=== PATIENT | female | born 1975 | race Caucasian/White ===

== ENCOUNTER → 2018-07-25 09:38 | Outpatient (CLI) | payer BC, SELFPAY ==
--- NOTE | 2018-07-25 | DI.MG.S_ITS ---
BILATERAL DIGITAL SCREENING MAMMOGRAM 3D/2D WITH CAD: 07/25/2018 CLINICAL: Routine screening. Comparison is made to exams dated: 07/24/2017 mammogram, 07/18/2016 mammogram, and 07/12/2015 mammogram - [facility]. There are scattered fibroglandular elements in both breasts. Current study was also evaluated with a Computer Aided Detection (CAD) system. No significant masses, calcifications, or other findings are seen in either breast. There has been no significant interval change. IMPRESSION: NEGATIVE There is no mammographic evidence of malignancy. A 1 year screening mammogram is recommended. This exam was interpreted at Station ID: [id number]. NOTE: For mammograms, a report in lay terms will be sent to the patient. Approximately 15% of breast malignancies will not be visualized mammographically. In the management of a palpable breast mass, a negative mammogram must not discourage biopsy of a clinically suspicious lesion. Electronically Signed By: Will mansfield/elmer:07/27/2018 18:07:35 letter sent: Normal Exam ACR BI-RADS Category 1: Negative [id number]
== END ==
PROVIDERS: Visit Provider Obstetrics & Gynecology
DX: Z12.31 Encounter for screening mammogram for malignant neoplasm of breast (principal)
CPT/HCPCS: 77063; 77067

== ENCOUNTER 2019-07-07 12:14 | Emergency (ER) | payer BC, SELFPAY ==
[2019-07-07] VITALS (7 sets, daily range): BP systolic 133–171; BP diastolic 75–118; PULSE 84–100; RESP 14–19; TEMP 36.3; O2SAT 99–100; BMI 32.4
--- NOTE | 2019-07-07 12:23 | DI.RAD.S_ITS ---
PROCEDURE: XR CHEST 1V INDICATIONS: chest pain TECHNIQUE: One view of the chest was acquired. COMPARISON: None. FINDINGS: Surgical changes and devices: None. Lungs and pleura: Lungs are clear. No pleural effusions or pneumothorax. Mediastinum: Mediastinal contours appear normal. Heart size is normal. Bones and chest wall: No suspicious bony lesions. Overlying soft tissues appear unremarkable. IMPRESSION: No acute pulmonary process. Dictated by: Mary Arreola M.D. on 07/07/2019 at 11:49 Approved by: Mary Arreola M.D. on 07/07/2019 at 11:51
[2019-07-07 12:50] LABS: Add Manual Diff / Slide Review NO; Basophils Absolute Auto 100 /uL (0-100); Basophils Percent Auto 1.3 % (0-2); Eosinophils Absolute Auto 100 /uL (0-450); Eosinophils Percent Auto 0.8 % (2-4); Hematocrit 40.6 % (36-46); Hemoglobin 14.2 g/dL (12.0-16.0); Lymphocytes Absolute Auto 2100 /uL (1100-4500); Lymphocytes Percent Auto 22.7 % (25-40); Mean Corpuscular Hemoglobin 33.3 PG (26-34); Mean Corpuscular Volume 95.2 fL (80-100); Monocytes Absolute Auto 500 /uL (0-900); Monocytes Percent Auto 4.8 % (3-14); Neutrophils Absolute Auto 6600 /uL (1500-7000); Neutrophils Percent Auto 70.4 % (50-75); Platelet Count 273 X10^3/uL (150-400); Red Blood Cell Count 4.27 X10^6/uL (4.0-5.2); Red Cell Distribution Width 12.9 % (11.6-14.8); White Blood Cell Count 9.4 X10^3/uL (4.5-11.0)
[2019-07-07 12:57] LABS: INR 0.9 (0.9-1.3); Prothrombin Time 10.6 SECONDS (10.1-12.7)
[2019-07-07 13:00] LABS: PTT Partial Thromboplastin Tim 26 SECONDS (26.4-36.2)
[2019-07-07 13:05] LABS: Alanine Aminotransferase 19 IU/L (<35); Albumin 4.9 g/dL (3.5-5.0); Albumin Globulin Ratio 1.6 (1.0-2.8); Alkaline Phosphatase 98 U/L (38-126); Aspartate Aminotransferase 25 IU/L (14-36); BUN Creatinine Ratio 14.3 (6-22); Bilirubin Total 0.8 mg/dL (0.2-1.3); Blood Urea Nitrogen 10 mg/dL (7-17); Calcium 9.5 mg/dL (8.4-10.2); Carbon Dioxide 26 mmol/L (22-32); Chloride 103 mmol/L (98-107); Creatine Kinase 75 U/L (30-135); Estimated Glomerular Filt Rate > 60.0 mL/min (>60); Glucose 95 mg/dL (70-100); HEMOLYSIS < 15 (0-50); Lipase 55 U/L (23-300); Potassium 3.6 mmol/L (3.4-5.1); Sodium 139 mmol/L (137-145); Total Protein 7.9 g/dL (6.3-8.2)
[2019-07-07 13:16] LABS: Troponin I < 0.012 ng/mL (0.01-0.034)
--- NOTE | 2019-07-07 15:00 | ED.CHESTPAIN ---
HPI - Chest Pain General Chief Complaint: Chest Pain Stated Complaint: pain in chest Time Seen by Provider: 07/07/19 12:40 Source: patient Mode of arrival: Ambulatory Limitations: no limitations History of Present Illness HPI narrative: Patient comes emergency department complaining of intermittent chest pressure for the last approximately week. She states that she has not had any other symptoms, such as shortness of breath, nausea, actual pain, lightheadedness, or dizziness. She states that she does have a history of some acid reflux and does take omeprazole for this. According to the patient, her primary care physician did an EKG in the office, and that the patient had a new left bundle branch block which was not there before. As such, she was told to come to the emergency department immediately to get checked out. The patient states that her family does have a history of hypertension and that there is some coronary artery disease that runs in the family, mainly in her grandfather's, but she does not know how old they were when they had their MIs. Patient denies any history of diabetes. She does have hypertension for which she is treated with losartan. Patient states that the pressure is mild and subtle, and it comes and goes. It does not radiate anywhere else. She rates her pressure currently about a 2/10. No other complaints at this time. No lower extremity pain or swelling. No fever or cough. Patient does have some sinus congestion which has been going on. Related Data Home Medications Medication Instructions Recorded Confirmed losartan 25 mg tablet 25 mg PO DAILY 05/25/19 05/25/19 omeprazole 20 mg tablet,delayed 20 mg PO DAILY 05/25/19 05/25/19 release Allergies Allergy/AdvReac Type Severity Reaction Status Date / Time ampicillin [AMPICILLIN] Allergy Unknown Verified 07/07/19 12:20 Penicillins [PENICILLINS] Allergy Unknown A CHILD Verified 07/07/19 12:20 Review of Systems Constitutional Constitutional: Denies chills, Denies fatigue, Denies fever(s), Denies frequent falls, Denies lethargy and Denies weakness Eyes Eyes: Denies change in vision, Denies eye discharge, Denies irritation and Denies loss of vision ENT Ears, Nose, Mouth, and Throat: Denies change in voice, Denies dizziness, Denies neck pain, Denies sore throat and Denies throat swelling Cardiovascular Cardiovascular: Reports chest pain (Pressure), Denies irregular heart rhythm, Denies lightheadedness, Denies palpitations, Denies dyspnea, Denies dyspnea on exertion and Denies orthopnea Respiratory Respiratory: Denies cough, Denies dyspnea, Denies dyspnea on exertion and Denies wheezing Gastrointestinal Gastrointestinal: Denies abdominal pain, Denies change in bowel habits, Denies diarrhea, Denies nausea and Denies vomiting Genitourinary Genitourinary: Denies hematuria, Denies flank pain, Denies urinary incontinence and Denies urinary urgency Musculoskeletal Musculoskeletal: Denies back pain, Denies muscle weakness, Denies neck pain, Denies numbness and Denies tingling Integumentary/Breasts Skin/Breast: Denies pruritus, Denies erythema, Denies rash and Denies wounds Neurologic Neurologic: Denies behavioral changes, Denies confusion, Denies dizziness, Denies frequent falls, Denies loss of vision, Denies numbness, Denies tingling and Denies weakness Psychiatric Psychiatric: Denies anxiety, Denies behavioral changes, Denies confusion, Denies depression, Denies homicidal ideation and Denies suicidal ideation Endocrine Endocrine: Denies fatigue, Denies flushing and Denies palpitations Hematologic/Lymphatic Hematologic/Lymphatic: Denies easy bruising Allergic/Immunologic Allergic/Immunologic: Denies urticaria, Denies throat swelling and Denies wheezing Patient History Medical History Blurry vision (Chronic) Chicken pox (Resolved 1979) Hayfever (Chronic) Hearing loss (Chronic) Ovarian cyst (Resolved) Premature heartbeats (Resolved 2001) Varicose veins of both lower extremities (Chronic) Surgical History Anesthesia (Resolved) History of right salpingo-oophorectomy (Resolved 05/02/09) Status post tonsillectomy and adenoidectomy (Resolved 1979) Status post tubal ligation (Resolved 05/02/09) Family History Father Age: 67 Hypertension Obesity Cardiomegaly Chronic obstructive pulmonary disease, unspecified COPD type Grandfather Heart disease Hypertension Stroke Heart attack Grandmother Diabetes mellitus Hypertension High cholesterol Cirrhosis, nonalcoholic Mother Age: 64 Hypertension Grandfather Heart disease Hypertension Stroke Grandmother Diabetes mellitus Mental health problem Kidney failure Dementia Sister Age: 39 Obesity Type 2 diabetes mellitus Family/Other No problems noted. Family/Other No problems noted. Family/Other Breast cancer Social History Smoking Status: Never smoker Exam Initial Vital Signs Initial Vital Signs: Vital Signs Temperature 97.3 F L 07/07/19 12:20 Pulse Rate 100 H 07/07/19 12:20 Respiratory Rate 14 07/07/19 12:20 Blood Pressure 171/97 H 07/07/19 12:20 Pulse Oximetry 100 07/07/19 12:20 Const General: cooperative and well developed Nutritional Appearance: well nourished Orientation: alert, awake, oriented x3 and not confused HENMT Head: normocephalic and atraumatic Ears: external ears normal Nose: external nose normal and No nasal discharge Face and sinus: face symmetric and No dry mucous membranes Mouth: oral mucosae normal and moist mucous membranes Teeth and gingiva: dentition normal Eyes General: appearance normal, both eyes and all related structures Eyelids: eyelids normal Conjunctivae: conjunctivae normal Sclera: sclerae normal Pupils: PERRL EOM: EOM intact bilaterally Neck Neck: normal visual inspection, trachea midline, No lymphadenopathy, No midline deformity and No JVD Lymphatic: No lymphedema Chest Chest: normal inspection of the chest Resp Effort & Inspection: normal respiratory effort, able to speak in complete sentences, no respiratory distress and no use of accessory muscles Auscultation: clear to auscultation bilaterally, no rales, no rhonchi and no wheezes Cardio Rate: regular rate Rhythm: regular rhythm Heart Sounds: no click, no gallops, no murmurs and no rubs Pulses: normal peripheral pulses GI Inspection: non-distended Palpation: soft, no hepatosplenomegaly, No guarding, No pulsatile mass and No tender Auscultation: normal bowel sounds Back/Spine/Pelvis Back: No CVA tenderness Cervical Spine: cervical ROM normal and No pain with cervical ROM Thoracic/Lumbar Spine: thoracic and lumbar spine normal to inspection Skin General: no rashes or lesions noted, No jaundice and No petechiae Neuro General: alert, oriented x3, gait normal and no focal motor deficits Speech: speech normal Extrem General: full ROM, no clubbing, cyanosis or edema, no pedal edema and no calf tenderness Psych Appearance: well kempt Mental Status: mental status grossly normal Attitude: cooperative Thought Content: normal and suicidality Judgment: judgment good Course Course Course Narrative: Patient was worked up with labs and EKG, both of which were unremarkable. the patient had had symptoms for about a week, and was fairly low risk. Additionally, her symptoms did not sound likely to be cardiac in nature. As such, I did not feel a repeat troponin was indicated at this time. We have discussed the need for follow-up and the many potential causes of chest discomfort, many of which can be ruled out by our workup and by the history and physical exam. I have advised patient to follow up with her primary care physician to discuss whether she should have an endoscopy done to further evaluate her esophagus and stomach. We have discussed the usual indications for return. Orders Ordered: ED Orders 07/07/19 12:23 XR chest 1V Stat EKG-12 Lead Stat 07/07/19 12:41 Complete Blood Count AUTO DIFF Stat Comprehensive Metabolic Panel Stat Lipase Stat Partial Thromboplastin Time Stat Prothrombin Time INR Stat Troponin & CK Cardiac Panel Stat Vital Signs Vital signs: Vital Signs - 8 hr 07/07/19 12:20 07/07/19 12:49 07/07/19 13:00 Temperature 97.3 F L Pulse Rate 100 H 84 87 Respiratory Rate 14 16 14 Blood Pressure 171/97 H Blood Pressure [Right Arm] 140/98 H 142/79 H Pulse Oximetry 100 100 100 07/07/19 13:30 07/07/19 14:00 Temperature Pulse Rate 84 88 Respiratory Rate 16 19 Blood Pressure Blood Pressure [Right Arm] 136/92 H 133/75 Pulse Oximetry 100 100 MDM - Chest Pain Medical Records Data Attestation: I reviewed the patient's medical records. Lab Data Attestation: I reviewed the patient's lab results. Result diagrams: 07/07/19 12:41 07/07/19 12:41 Labs: Lab Results 07/07/19 07/07/19 07/07/19 Range/Units 12:41 12:41 12:41 WBC 9.4 (4.5-11.0) X10^3/uL RBC 4.27 (4.0-5.2) X10^6/uL Hgb 14.2 (12.0-16.0) g/dL Hct 40.6 (36-46) % MCV 95.2 (80-100) fL MCH 33.3 (26-34) PG MCHC 35.0 (30-36) % RDW 12.9 (11.6-14.8) % Plt Count 273 (150-400) X10^3/uL Neut % (Auto) 70.4 (50-75) % Lymph % (Auto) 22.7 L (25-40) % Grundy % (Auto) 4.8 (3-14) % Eos % (Auto) 0.8 L (2-4) % Baso % (Auto) 1.3 (0-2) % Neut # (Auto) 6600 (8054-7753) /uL Lymph # (Auto) 2100 (8572-7623) /uL Grundy # (Auto) 500 (0-900) /uL Eos # (Auto) 100 (0-450) /uL Baso # (Auto) 100 (0-100) /uL PT 10.6 (10.1-12.7) SECONDS INR 0.9 (0.9-1.3) APTT 26 L (26.4-36.2) SECONDS Sodium 139 (137-145) mmol/L Potassium 3.6 (3.4-5.1) mmol/L Chloride 103 (98-107) mmol/L Carbon Dioxide 26 (22-32) mmol/L BUN 10 (7-17) mg/dL Creatinine 0.70 (0.52-1.04) mg/dL Estimated GFR > 60.0 (>60) mL/min BUN/Creatinine Ratio 14.3 (6-22) Glucose 95 (70-100) mg/dL Calcium 9.5 (8.4-10.2) mg/dL Total Bilirubin 0.8 (0.2-1.3) mg/dL AST 25 (14-36) IU/L ALT 19 (<35) IU/L Alkaline Phosphatase 98 (38-126) U/L Total Creatine Kinase 75 (30-135) U/L CK-MB (CK-2) TNP CK-MB (CK-2) Rel Index TNP Troponin I < 0.012 (0.01-0.034) ng/mL Total Protein 7.9 (6.3-8.2) g/dL Albumin 4.9 (3.5-5.0) g/dL Globulin 3.0 (1.7-4.1) g/dL Albumin/Globulin Ratio 1.6 (1.0-2.8) Lipase 55 (23-300) U/L 07/07/19 Range/Units 15:25 WBC (4.5-11.0) X10^3/uL RBC (4.0-5.2) X10^6/uL Hgb (12.0-16.0) g/dL Hct (36-46) % MCV (80-100) fL MCH (26-34) PG MCHC (30-36) % RDW (11.6-14.8) % Plt Count (150-400) X10^3/uL Neut % (Auto) (50-75) % Lymph % (Auto) (25-40) % Grundy % (Auto) (3-14) % Eos % (Auto) (2-4) % Baso % (Auto) (0-2) % Neut # (Auto) (5706-0290) /uL Lymph # (Auto) (1402-2796) /uL Grundy # (Auto) (0-900) /uL Eos # (Auto) (0-450) /uL Baso # (Auto) (0-100) /uL PT (10.1-12.7) SECONDS INR (0.9-1.3) APTT (26.4-36.2) SECONDS Sodium (137-145) mmol/L Potassium (3.4-5.1) mmol/L Chloride (98-107) mmol/L Carbon Dioxide (22-32) mmol/L BUN (7-17) mg/dL Creatinine (0.52-1.04) mg/dL Estimated GFR (>60) mL/min BUN/Creatinine Ratio (6-22) Glucose (70-100) mg/dL Calcium (8.4-10.2) mg/dL Total Bilirubin (0.2-1.3) mg/dL AST (14-36) IU/L ALT (<35) IU/L Alkaline Phosphatase (38-126) U/L Total Creatine Kinase (30-135) U/L CK-MB (CK-2) CK-MB (CK-2) Rel Index Troponin I < 0.012 (0.01-0.034) ng/mL Total Protein (6.3-8.2) g/dL Albumin (3.5-5.0) g/dL Globulin (1.7-4.1) g/dL Albumin/Globulin Ratio (1.0-2.8) Lipase (23-300) U/L Imaging Data Chest x-ray: Radiologist's impression: PROCEDURE: XR CHEST 1V INDICATIONS: chest pain TECHNIQUE: One view of the chest was acquired. COMPARISON: None. FINDINGS: Surgical changes and devices: None. Lungs and pleura: Lungs are clear. No pleural effusions or pneumothorax. Mediastinum: Mediastinal contours appear normal. Heart size is normal. Bones and chest wall: No suspicious bony lesions. Overlying soft tissues appear unremarkable. IMPRESSION: No acute pulmonary process. Dictated by: Mary Arreola M.D. on 07/07/2019 at 11:49 Approved by: Mary Arreola M.D. on 07/07/2019 at 11:51 ECG Data Attestation: I personally reviewed and interpreted this ECG as follows: (See below) Interpretation: Twelve lead EKG performed July 07, 2019 at 12:24 p.m., as follows: Regular ventricular rhythm with a rate of 87 beats per minute LA interval 162 millisecond QRS duration 138 millisecond QTC interval [address] T wave changes Normal sinus rhythm; left bundle-branch block; no signs acute ischemia; abnormal EKG as interpreted by ED MD. Discharge Plan Departure Patient Disposition: Home Clinical Impression: Atypical chest pain Discharge Date/Time: 07/07/19 16:37 Activity Restrictions/Additional Instructions: Your labs, including a repeat troponin, as well as your x-ray and EKG do not show evidence of an acute or emergent issue at this time. It is not clear why you have developed the left bundle branch block since your previous EKG. However, there is no evidence of an acute heart attack within the last several days, and overall, your risk level is lower. You will need to follow up with your primary care physician to discuss having a stress test done in the near future to see if there is a possibility of blockages in your coronary arteries. Please also consider talking with your doctor about getting an endoscopy done to see if you have some issues in your esophagus related to acid reflux, which could also be causing your symptoms. if you develop chest pain with shortness of breath, nausea, lightheadedness, and or facial sweating, please return to the emergency department immediately. Prescriptions: No Action omeprazole 20 mg tablet,delayed release (DR/EC) 20 mg PO DAILY RF: 0 losartan 25 mg tablet 25 mg PO DAILY RF: 0
[2019-07-07 15:58] LABS: Troponin I < 0.012 ng/mL (0.01-0.034)
== END 2019-07-07 16:37 | disposition home or self-care (01) ==
PROVIDERS: Emergency Provider Emergency Medicine
DX: R07.89 Other chest pain (principal); I10 Essential (primary) hypertension
CPT/HCPCS: 36415; 71045; 80053; 82550; 83690; 84484; 85025; 85610; 85730; 93005; 99283; 99285

== ENCOUNTER → 2019-07-26 10:58 | Outpatient (CLI) | payer BC, SELFPAY ==
--- NOTE | 2019-07-26 11:02 | DI.MG.S_ITS ---
BILATERAL DIGITAL SCREENING MAMMOGRAM 3D/2D WITH CAD: 07/26/2019 CLINICAL: Routine screening. Comparison is made to exams dated: 07/25/2018 mammogram, 07/24/2017 mammogram, and 07/18/2016 mammogram - [facility]. There are scattered fibroglandular elements in both breasts. Current study was also evaluated with a Computer Aided Detection (CAD) system. There is an oval low density mass with an indistinct and circumscribed margin in the left breast at 1 o'clock middle depth. No other significant masses, calcifications, or other findings are seen in either breast. IMPRESSION: INCOMPLETE: NEEDS ADDITIONAL IMAGING EVALUATION The oval low density mass in the left breast is indeterminate. Mediolateral and spot compression views as well as additional views with possible ultrasound are recommended. This exam was interpreted at Station ID: [id number]. NOTE: For mammograms, a report in lay terms will be sent to the patient. Approximately 15% of breast malignancies will not be visualized mammographically. In the management of a palpable breast mass, a negative mammogram must not discourage biopsy of a clinically suspicious lesion. Electronically Signed By: Fuad galeas/elmer:07/27/2019 14:01:57 letter sent: Additional Imaging Needed ACR BI-RADS Category 0: Incomplete [id number]
== END ==
PROVIDERS: Visit Provider Obstetrics & Gynecology
DX: Z12.31 Encounter for screening mammogram for malignant neoplasm of breast (principal)
CPT/HCPCS: 77063; 77067

== ENCOUNTER → 2019-08-17 14:11 | Outpatient (CLI) | payer BC, SELFPAY ==
--- NOTE | 2019-08-17 14:12 | DI.MG.S_ITS ---
UNILATERAL LEFT DIGITAL DIAGNOSTIC MAMMOGRAM 3D/2D WITH ADDITIONAL VIEWS: 08/17/2019 CLINICAL: Additional evaluation requested from prior study. Comparison is made to exams dated: 07/26/2019 mammogram, 07/25/2018 mammogram, and 07/24/2017 mammogram - [facility]. There are scattered fibroglandular elements in left breast. There is a 1.1 cm oval equal density mass with a partially irregular and partially smooth, circumscribed margin in the left breast at 1 o'clock middle depth. This is confirmed in additional views. This has increased in size since the 2018 study. No other significant masses or calcifications are seen in the breast. IMPRESSION: INCOMPLETE: NEEDS ADDITIONAL IMAGING EVALUATION The 1.1 cm oval equal density mass in the left breast persists with additional views and is indeterminate. An ultrasound is recommended for further evaluation. This was performed immediately following this exam. This exam was interpreted at Station ID: [id number]. NOTE: For mammograms, a report in lay terms will be sent to the patient. Approximately 15% of breast malignancies will not be visualized mammographically. In the management of a palpable breast mass, a negative mammogram must not discourage biopsy of a clinically suspicious lesion. Electronically Signed By: Michelle valencia/:08/17/2019 14:53:27 ACR BI-RADS Category 0: Incomplete [id number]
--- NOTE | 2019-08-17 14:12 | DI.US.S_ITS ---
LIMITED ULTRASOUND OF LEFT BREAST: 08/17/2019 CLINICAL: Additional evaluation requested from prior study. Comparison is made to exams dated: 08/17/2019 mammogram, 07/26/2019 mammogram, 07/25/2018 mammogram, 07/24/2017 mammogram, and 07/18/2016 mammogram - [facility]. Color flow and real-time ultrasound of the left breast 1 o'clock region were performed. Magdaleno scale images of the real-time examination were reviewed. There is a benign 1.1 cm x 0.7 cm x 0.5 cm oval cyst with a smooth internal wall in the left breast at 1 o'clock anterior depth 3 cm from the nipple. This oval cyst displays posterior acoustic enhancement. Color flow imaging demonstrates that there is no vascularity present. This correlates with mammography findings. IMPRESSION: BENIGN The 1.1 cm x 0.7 cm x 0.5 cm oval cyst in the left breast is consistent with a simple cyst and is benign. There is no sonographic evidence of malignancy. Return to annual mammogram screening schedule is recommended. Findings and recommendations were conveyed to the patient at time of exam. This exam was interpreted at Station ID: [id number]. Electronically Signed By: Michelle valencia/:08/17/2019 15:15:43 letter sent: Normal Exam Ultrasound BI-RADS: 2 Benign
== END ==
PROVIDERS: Visit Provider Obstetrics & Gynecology
DX: R92.8 Other abnormal and inconclusive findings on diagnostic imaging of breast (principal); N60.02 Solitary cyst of left breast
CPT/HCPCS: 76642; 77065; G0279

== ENCOUNTER → 2019-09-22 10:44 | Outpatient (CLI) | payer BC, SELFPAY ==
--- NOTE | 2019-09-22 10:46 | DI.US.S_ITS ---
ULTRASOUND OF RIGHT BREAST: 09/22/2019 CLINICAL: Nipple discharge, both breasts, not bloody. Comparison is made to exams dated: 08/17/2019 ultrasound, 08/17/2019 mammogram, 07/26/2019 mammogram, 07/25/2018 mammogram, and 07/24/2017 mammogram - [facility]. Real-time ultrasound of the right breast was performed. Magdaleno scale images of the real-time examination were reviewed. No significant abnormalities were seen sonographically in the right breast. IMPRESSION: NEGATIVE There is no sonographic evidence of malignancy. There is no abnormality seen in the right breast to correspond with the area of clinical concern and non-bloody discharge from the nipple in the sub-areolar/anterior depth which likely represent physiological discharge, however, clinical followup is recommended for persistent or worsening symptoms. A 1 year screening mammogram is recommended. This exam was interpreted at Station ID: [id number]. Electronically Signed By: Ifeanyi Kraft M.D. aty/:09/22/2019 13:00:04 Ultrasound BI-RADS: 1 Negative
--- NOTE | 2019-09-22 10:46 | DI.US.S_ITS ---
ULTRASOUND OF LEFT BREAST AND AXILLA: 09/22/2019 CLINICAL: Nipple discharge, both breasts, not bloody. Comparison is made to exams dated: 08/17/2019 ultrasound, 08/17/2019 mammogram, 07/26/2019 mammogram, 07/25/2018 mammogram, and 07/24/2017 mammogram - [facility]. Color flow and real-time ultrasound of the left breast axilla were performed. Magdaleno scale images of the real-time examination were reviewed. There is a 0.3 cm x 0.3 cm x 0.2 cm oval intraductal mass in the left breast at 3 o'clock in the retroareolar region. This oval intraductal mass is hypoechoic. This correlates with area of clinical concern; however, visualized and described nipple discharge appear physiologic and non-bloody. Color flow imaging demonstrates that there is no vascularity present. There also is a stable benign 1 cm x 0.7 cm x 0.5 cm oval cyst with a smooth internal wall in the left breast at 1 o'clock anterior depth 3 cm from the nipple. This oval cyst displays posterior acoustic enhancement. This abnormality correlates with mammography findings. Color flow imaging demonstrates that there is no vascularity present. No significant abnormalities were seen sonographically in the left axilla. IMPRESSION: SUSPICIOUS OF MALIGNANCY The 0.3 cm x 0.3 cm x 0.2 cm oval intraductal mass in the left breast at 3 o'clock in the retroareolar region resembles a possible papilloma and is suspicious of malignancy. An ultrasound guided biopsy is recommended. The 1 cm x 0.7 cm x 0.5 cm oval cyst in the left breast at 1 o'clock anterior depth is consistent with a simple cyst and is benign. Findings and recommendations were discussed with the patient during today's visit by Dr. Alexis. The patient agreed to proceed with scheduling the biopsy. This exam was interpreted at Station ID: [id number]. Electronically Signed By: Ifeanyi Kraft M.D. aty/:09/22/2019 13:06:00 letter sent: Biopsy Required Ultrasound BI-RADS: 4 Suspicious for malignancy
== END ==
PROVIDERS: PCP Physician Assistant; Referring Provider Obstetrics & Gynecology; Visit Provider Obstetrics & Gynecology
DX: N64.52 Nipple discharge (principal); N63.25 Unspecified lump in the left breast, overlapping quadrants; N60.02 Solitary cyst of left breast
CPT/HCPCS: 76642

== ENCOUNTER → 2019-10-11 07:32 | Outpatient (CLI) | payer BC, SELFPAY ==
--- NOTE | 2019-10-11 | PATH_ITS ---
[facility] Accession Number: [id number] . 01 Material submitted: . breast - LEFT BREAST MASS 3:00 6 CM FN . 01 Clinical history: . LEFT BREAST MASS . 01 Diagnosis: Left Breast Mass, 3 o'clock, 6 cm FN, Image Guided Biopsy: Benign breast parenchyma with duct ectasia, mild chronic inflammation, focal fibrosis with pseudoangiomatous stromal hyperplasia (PASH)-like changes, and focal collection of hemosiderin-laden macrophages, suggestive of old hemorrhage. Negative for in situ and invasive carcinoma, see comment. MRV 10/13/2019 1436 Local . 01 Comment: Per provided imaging studies, the findings (radiologically) are suggestive of a papilloma; however, the submitted biopsies show changes consistent with duct ectasia and focal PASH-like changes without evidence of atypia and malignancy. Histologic features to support papilloma are not present on the submitted biopsy. . Clinical and radiologic correlation is recommended. . As part of ongoing software quality assurance specialist, this case was reviewed by Dr. Livier Jenkins, who agrees with the interpretation. . 01 Electronically signed: . Glendy Wills MD, Pathologist NPI- [id number] . 01 Gross description: . Received one formalin-filled container, labeled with the patient's name and designated left breast mass 3 o'clock 6 cm FN. The specimen is received with a plastic filter in container, sample loose in container and consists of multiple yellow-quinones pieces of partial cylindrical-shaped soft tissue which range in size from 0.9 x 0.2 x 0.2 cm to 1.7 x 0.3 x 0.2 cm. The specimen is entirely submitted in one cassette. Collection date: 10/11/19. Collection time per container: 9:0.1 a.m. Total fixation time: Approximately 18 hours. (DC:[id number]) /AWILDA 10/12/2019 0222 Local . 01 Pathologist provided ICD-10: N63.20 . 01 CPT . 748294 Performed at: [facility] [address] [place] [id number] MD Fuad Melendez MD Phone: [phone]
--- NOTE | 2019-10-11 | DI.MG.S_ITS ---
UNILATERAL LEFT DIGITAL DIAGNOSTIC MAMMOGRAM POST-NEEDLE BIOPSY: 10/11/2019 CLINICAL: Left breast lump. Comparison is made to exams dated: 10/11/2019 ultrasound biopsy, 08/17/2019 mammogram, 07/26/2019 mammogram, and 07/25/2018 mammogram - [facility]. There are scattered fibroglandular elements in left breast. There is a marker clip in the appropriate position in the left breast at 3 o'clock middle depth. This marker clip placement is at the biopsy site. IMPRESSION: POST PROCEDURE MAMMOGRAM FOR MARKER PLACEMENT There was a successful marker clip placement in the left breast This exam was interpreted at Station ID: [id number]. NOTE: For mammograms, a report in lay terms will be sent to the patient. Approximately 15% of breast malignancies will not be visualized mammographically. In the management of a palpable breast mass, a negative mammogram must not discourage biopsy of a clinically suspicious lesion. Electronically Signed By: Lavell lewis/:10/11/2019 15:54:02 ACR BI-RADS Category Post-procedure mammogram for marker placement
--- NOTE | 2019-10-11 07:34 | DI.US.S_ITS ---
ULTRASOUND GUIDED BIOPSY LEFT BREAST USING VACUUM DEVICE WITH MARKING DEVICE INSERTED: 10/11/2019 CLINICAL: Left breast mass. PATIENT CONSENT: Risks (minor bleeding, infection, vasovagal reaction and repeat procedure), benefits and alternatives were explained to the patient and written informed consent was obtained. Correlation is made to exams dated: 09/22/2019 ultrasound, 08/17/2019 ultrasound, 08/17/2019 mammogram, 07/26/2019 mammogram, and 07/25/2018 mammogram - [facility]. An ultrasound guided biopsy using real-time ultrasound was performed for the irregular shaped mass located in the left breast at 3 o'clock middle depth. The skin was prepped in the usual manner. Local anesthetic was administered to the access site. The abnormality was approached from the lateral aspect. A biopsy needle was placed adjacent to the abnormality under ultrasound guidance. Once the needle was documented to be in the correct location, five specimens were obtained using the Mammotome biopsy system. The patient received additional local anesthetic during the procedure. A clip was inserted into the biopsy cavity. The specimens were sent to the laboratory for pathological analysis. IMPRESSION: ULTRASOUND GUIDED BIOPSY BENIGN Ultrasound guided biopsy of the mass in the left breast at 3 o'clock middle depth 6 cm from nipple was successful. 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 Pathology results are concordant with ultrasound findings. The intraductal lesion felt to be debris on the current ultrasound was not biopsied. A follow-up left mammogram and an ultrasound in 6 months is recommended to demonstrate stability of the dilated duct with possible debris vs intraductal mass, and the biopsied area which demonstrated changes suggestive of PASH. This exam was interpreted at Station ID: [id number]. Lavell lewis,erik/:10/16/2019 20:16:52
== END ==
PROVIDERS: PCP Physician Assistant; Referring Provider Obstetrics & Gynecology; Visit Provider Obstetrics & Gynecology
DX: N60.42 Mammary duct ectasia of left breast (principal); N61.0 Mastitis without abscess; N60.32 Fibrosclerosis of left breast; N64.52 Nipple discharge
CPT/HCPCS: 19083; 77065

== ENCOUNTER → 2019-12-30 07:58 | Outpatient (CLI) | payer BC, SELFPAY ==
--- NOTE | 2019-12-30 | DI.ECHO.S_ITS ---
[facility] +---------+ : : [address] : : : : [address] : : : : Phone: [phone]+ Echocardiogram Report + + :Name: SAILAJA EDOUARD Study Date: 12/30/2019 Height: 64 in : :[facility] Weight: 155 lb : : Gender: Female BSA: 1.8 m2 : :: 1975 Age: 44 yrs BP: 122/80 mmHg: :Reason For Study: Cardiomyopathy : :Ordering Physician: Rachel Elias : :Magali Performed By: Tomasa Roper : :Referring: RACHEL DE LOS SANTOS : + + Interpretation Summary 1) Normal left ventricular thickness and size with low normal systolic function (EF about 55%). 2) Normal right ventricular size and function. 3) No significant valvular abnormalities. 4) No prior Echo available for comparison. Procedure: A two-dimensional transthoracic echocardiogram with color flow and Doppler was performed. The study quality was technically good. Comparison is made with the echocardiogram of 07/15/2019. The patient was in sinus rhythm with heart rates between 60-66 bpm during the exam. Left Ventricle: The left ventricle is normal in size and wall thickness. Left ventricular global longitudinal strain average is 19.6%. Left ventricular ejection fraction is estimated to be 55 +/- 5%. Septal motion is consistent with conduction abnormality. Right Ventricle: The right ventricle is normal in size and function. Atria: The left atrium is mildly dilated. Right atrial size is normal. There is no Doppler evidence for an interatrial shunt. Mitral Valve: The mitral valve is normal in structure and function. There is trace mitral regurgitation. Aortic Valve: The aortic valve is trileaflet. The aortic valve opens well. There is no aortic valve stenosis. There is trace aortic regurgitation. Tricuspid Valve: The tricuspid valve is normal in structure and function. There is a trace or physiologic amount of tricuspid regurgitation. Pulmonary artery pressures cannot be estimated because of the lack of a measurable TR jet velocity but the IVC suggests a CVP of around 3 mmHg. Pulmonic Valve: The pulmonic valve is normal in structure and function. There is no pulmonic valvular regurgitation. Great Vessels: The aortic root is normal size. The ascending aorta is normal in size. The IVC is of normal diameter and collapses greater than 50% with a sniff. This suggests a low right atrial pressure of 3 mm Hg. Pericardium/ Pleura There is no pericardial effusion. There is no pleural effusion. MMode/2D Measurements & Calculations LVIDd: 5.1 cm LVOT diam: 2.3 cm LVIDs: 3.8 cm Ao root diam: 3.2 cm FS: 25.3 % asc Aorta Diam: 3.1 cm EPSS: 0.97 cm Ao Arch Diam (Prox Trans): 2.9 cm IVSd: 1.0 cm LVPWd: 0.80 cm LV morton. diameter/BSA (cm/m^2): 2.9 LV sys. diameter/BSA (cm/m^2): 2.2 LA A2 area: 23.2 cm2 RA long axis: 4.6 cm LA A4 area: 16.6 cm2 RA area: 13.5 cm2 LA length (vol): 4.6 cm RA vol: 33.9 ml LA vol: 70.8 ml RA : 19.3 ml/m2 LA vol index: 40.3 ml/m2 RVD1 (basal): 3.0 cm TAPSE: 2.0 cm Doppler Measurements & Calculations Ao V2 max: 118.4 cm/sec LVOT Max Michael: 91.9 cm/sec Ao V2 mean: 86.6 cm/sec LV V1 max P.4 mmHg Ao max P.6 mmHg LV V1 VTI: 20.8 cm Ao mean P.4 mmHg ANCA(I,D): 2.9 cm2 Ao V2 VTI: 29.3 cm ANCA(V,D): 3.1 cm2 sev ratio: 0.71 ANCA indexed to BSA (cm^2/m^2): 1.6 MV E max michael: 80.8 cm/sec PA V2 max: 64.2 cm/sec MV A max michael: 68.3 cm/sec PA V2 mean: 41.5 cm/sec MV E/A: 1.2 PA mean P.81 mmHg Med Peak E' Michael: 5.9 cm/sec E/E' med: 13.8 Lat Peak E' Michael: 11.7 cm/sec E/E' lat: 6.9 E/e' average: 10.4 MV dec time: 0.19 sec SV(LVOT): 83.8 ml Reading Physician:04:57 PM
== END ==
PROVIDERS: PCP Physician Assistant; Referring Provider Internal Medicine Cardiovascular Disease; Visit Provider Internal Medicine Cardiovascular Disease
DX: I42.9 Cardiomyopathy, unspecified (principal)
CPT/HCPCS: 93306

== ENCOUNTER → 2020-01-06 08:23 | Outpatient (CLI) | payer BC, SELFPAY ==
[2020-01-06 09:49] LABS: Add Manual Diff / Slide Review NO; Basophils Absolute Auto 100 /uL (0-100); Basophils Percent Auto 0.7 % (0-2); Eosinophils Absolute Auto 200 /uL (0-450); Eosinophils Percent Auto 2.2 % (2-4); Hematocrit 38.9 % (36-46); Hemoglobin 13.7 g/dL (12.0-16.0); Lymphocytes Absolute Auto 1800 /uL (1100-4500); Lymphocytes Percent Auto 25.8 % (25-40); Mean Corpuscular HGB Conc 35.1 % (30-36); Mean Corpuscular Volume 93.9 fL (80-100); Monocytes Absolute Auto 400 /uL (0-900); Monocytes Percent Auto 5.1 % (3-14); Neutrophils Absolute Auto 4600 /uL (1500-7000); Neutrophils Percent Auto 66.2 % (50-75); Platelet Count 294 X10^3/uL (150-400); Red Blood Cell Count 4.14 X10^6/uL (4.0-5.2); Red Cell Distribution Width 12.7 % (11.6-14.8)
[2020-01-06 09:57] LABS: BUN Creatinine Ratio 21.3 (6-22); Blood Urea Nitrogen 13 mg/dL (7-17); Calcium 9.6 mg/dL (8.4-10.2); Carbon Dioxide 28 mmol/L (22-32); Chloride 103 mmol/L (98-107); Cholesterol 213 mg/dL (140-199); Estimated Glomerular Filt Rate > 60.0 mL/min (>60); Glucose 98 mg/dL (70-100); HDL Cholesterol 59 mg/dL (40-60); HEMOLYSIS < 15 (0-50); LDL Cholesterol Calculated 124 mg/dL (<100); Potassium 4.1 mmol/L (3.4-5.1); Sodium 138 mmol/L (137-145); Triglycerides 149 mg/dL (35-150)
== END ==
PROVIDERS: PCP Physician Assistant; Referring Provider Internal Medicine Cardiovascular Disease; Visit Provider Internal Medicine Cardiovascular Disease
DX: I10 Essential (primary) hypertension (principal)
CPT/HCPCS: 36415; 80048; 80061; 85025

== ENCOUNTER → 2020-04-17 08:34 | Outpatient (CLI) | payer BC, OTHER, SELFPAY ==
--- NOTE | 2020-04-17 08:38 | DI.US.S_ITS ---
PROCEDURE: US BREAST LT LIMITED COMPARISON: [facility], BREAST LT LIMITED, 09/22/2019, 11:18. INDICATIONS: 6 month f/u FINDINGS: IMPRESSION: Dictated by: Suellen Fontenot M.D. on 04/17/2020 at 13:11 Approved by: Suellen Fontenot M.D. on 04/17/2020 at 13:14
--- NOTE | 2020-04-17 09:04 | DI.MG.S_ITS ---
Patient Name: SAILAJA FELIX date: 1975 Sex: F Attending Physician: Yana Indications: Date: 04/17/2020 08:47 At the request of: OPAL GALLOWAY Procedure: MM diagnostic mammo unilat LT UNILATERAL LEFT DIGITAL DIAGNOSTIC MAMMOGRAM 3D/2D SHORT-TERM FOLLOWUP: 04/17/2020 CLINICAL: Patient returns for a 6 month follow up of the left breast. Post biopsy. Left breast lump. Comparison is made to exams dated: 10/11/2019 mammogram, 08/17/2019 mammogram, 10/11/2019 ultrasound biopsy, and 07/26/2019 mammogram - [facility]. There are scattered fibroglandular elements in left breast. There is a marker clip in the appropriate position in the left breast at 4 o'clock middle depth. This marker clip placement is at the biopsy site. No other significant masses or calcifications are seen in the breast. IMPRESSION: INCOMPLETE: NEEDS ADDITIONAL IMAGING EVALUATION There is no mammographic abnormality seen in the left breast to correspond with the palpable abnormality, however, targeted ultrasound of the left breast is recommended and will be performed immediately following this exam. The previous biopsy sire will also be evaluated by ultrasound. Additionally, the previous subareolar region recommended for biopsy in September 2019, but then cancelled as no longer seen in October 2019 will be evaluated by ultrasound. This exam was interpreted at Station ID: [id number]. NOTE: For mammograms, a report in lay terms will be sent to the patient. Approximately 15% of breast malignancies will not be visualized mammographically. In the management of a palpable breast mass, a negative mammogram must not discourage biopsy of a clinically suspicious lesion. Electronically Signed By: Suellen Fontenot M.D. lk/:04/17/2020 10:06:22 Continued Report - Page 2 of 2 Patient Name: SAILAJA FELIX date: 1975 Sex: F Attending Physician: Yana Indications: Date: 04/17/2020 08:47 At the request of: OPAL GALLOWAY Procedure: MM diagnostic mammo unilat LT ACR BI-RADS Category 0: Incomplete 3340F
== END ==
PROVIDERS: PCP Physician Assistant; Referring Provider Obstetrics & Gynecology; Visit Provider Obstetrics & Gynecology
DX: R92.2 Inconclusive mammogram (principal); N64.52 Nipple discharge; N60.42 Mammary duct ectasia of left breast; N63.25 Unspecified lump in the left breast, overlapping quadrants
CPT/HCPCS: 76642; 77065; G0279

== ENCOUNTER → 2020-04-25 09:08 | Outpatient (CLI) | payer BC, OTHER, SELFPAY ==
--- NOTE | 2020-04-25 | DI.MG.S_ITS ---
PROCEDURE: MM DIAGNOSTIC MAMMO UNILAT LT2D COMPARISON: [facility], , MM DIAGNOSTIC MAMMO UNILAT LT2D, 10/11/2019, 9:18. INDICATIONS: Left breast mass FINDINGS: IMPRESSION: Dictated by: Magaly Hernandez MD, PhD on 04/25/2020 at 11:06 Approved by: Magaly Hernandez MD, PhD on 04/25/2020 at 11:14
--- NOTE | 2020-04-25 | PATH_ITS ---
[facility] Accession Number: [id number] . 01 Material submitted: . breast - LEFT BREAST 3:00 DILATED DUCT . 01 Clinical history: . LEFT BREAST MASS . 01 Diagnosis: Left Breast, 3 o'clock Dilated Duct, Biopsy: Scant benign fibroadipose and fibrovascular tissue. Breast ducts and lobules are not identified. MRV 04/27/2020 1555 Local . 01 Comment: Deeper levels are examined. Clinico-radiographic correlation is necessary. . 01 Electronically signed: . Anjelica López MD, Pathologist NPI- [id number] . 01 Gross description: . Received one formalin-filled container labeled with the patient's name and labeled LT breast. The specimen is received with plastic filter in container, sample loose in container. The specimen consists of three fragments of yellow-haynes soft tissue, which range in size from 0.3 x 0.3 x 0.2 cm to 0.9 x 0.3 x 0.3 cm, and a small amount of blood. The specimen is entirely submitted in one cassette. No collection date or time per container. Possible collection date and time per requisition 04/25/2020 at 1046. Possible total fixation time approximately 35 hours. ([facility]:[id number]) /[facility] 04/26/2020 1849 Local . 01 Pathologist provided ICD-10: N63.0 . 01 CPT . 231898 Performed at: [facility] [address] [place] [address], [place], [place] [id number] MD Fuad Melendez MD Phone: [phone]
--- NOTE | 2020-04-25 09:15 | DI.US.S_ITS ---
PROCEDURE: US BX BREAST PERC W VAC DEVICE COMPARISON: None. INDICATIONS: DILATED DUCT FINDINGS: IMPRESSION: Dictated by: Magaly Hernandez MD, PhD on 04/25/2020 at 11:14 Approved by: Magaly Hernanedz MD, PhD on 04/25/2020 at 11:14
== END ==
PROVIDERS: PCP Physician Assistant; Referring Provider Obstetrics & Gynecology; Visit Provider Obstetrics & Gynecology
DX: N63.25 Unspecified lump in the left breast, overlapping quadrants (principal); N60.42 Mammary duct ectasia of left breast
CPT/HCPCS: 19083; 77065

== ENCOUNTER → 2020-07-06 12:37 | Outpatient (CLI) | payer BC, OTHER, SELFPAY ==
--- NOTE | 2020-07-06 12:38 | DI.MG.S_ITS ---
BILATERAL DIGITAL DIAGNOSTIC MAMMOGRAM 3D/2D SHORT-TERM FOLLOW-UP: 07/06/2020 CLINICAL: Short term follow up of the left breast, due for bilateral imaging. Comparison is made to exams dated: 04/25/2020 mammogram, 04/17/2020 mammogram, 10/11/2019 mammogram, and 07/26/2019 mammogram - [facility]. There are scattered fibroglandular elements in both breasts. The benign oval low density mass with an indistinct and circumscribed margin in the left breast at 1 o'clock middle depth is no longer seen. There are biopsy clips associated with the prior biopsy. No other significant masses, calcifications, or other findings are seen in either breast. IMPRESSION: INCOMPLETE: NEEDS ADDITIONAL IMAGING EVALUATION There is no mammographic evidence of malignancy. Return to annual mammogram screening schedule is recommended. This exam was interpreted at Station ID: [id number]. NOTE: For mammograms, a report in lay terms will be sent to the patient. Approximately 15% of breast malignancies will not be visualized mammographically. In the management of a palpable breast mass, a negative mammogram must not discourage biopsy of a clinically suspicious lesion. Electronically Signed By: Gregory Regalado acr/:07/07/2020 09:35:52 ACR BI-RADS Category 0: Incomplete 3340F
--- NOTE | 2020-07-06 12:38 | DI.US.S_ITS ---
ULTRASOUND OF LEFT BREAST: 07/06/2020 CLINICAL: 6 month follow-up biopsy sites. Comparison is made to exams dated: 07/06/2020 mammogram, 04/25/2020 ultrasound biopsy, 04/25/2020 mammogram, 04/17/2020 ultrasound, 04/17/2020 mammogram, and 10/11/2019 mammogram - [facility]. Color flow ultrasound of the left breast was performed. Magdaleno scale images of the real-time examination were reviewed. There is a dilated duct in the left breast at 3 o'clock anterior depth. This dilated duct displays internal echoes. There also is a stable benign mass in the left breast at 3 o'clock middle depth. This mass is of mixed echogenicity. There is an associated biopsy clip. IMPRESSION: PROBABLY BENIGN The dilated duct in the left breast at 3 o'clock anterior depth is stable and probably benign. The stable mass in the left breast at 3 o'clock middle depth is stable and probably benign. A follow-up mammogram and an ultrasound in 6 months is recommended to demonstrate stability. This exam was interpreted at Station ID: [id number]. Electronically Signed By: Gregory Regalado acr/:07/07/2020 08:59:01 letter sent: Followup Recommended Ultrasound BI-RADS: 3 Probably benign
== END ==
PROVIDERS: PCP Physician Assistant; Referring Provider Obstetrics & Gynecology; Visit Provider Obstetrics & Gynecology
DX: R92.8 Other abnormal and inconclusive findings on diagnostic imaging of breast (principal); N63.25 Unspecified lump in the left breast, overlapping quadrants; N60.42 Mammary duct ectasia of left breast
CPT/HCPCS: 76642; 77066; G0279

== ENCOUNTER → 2021-01-30 09:19 | Outpatient (CLI) | payer BC, OTHER, SELFPAY ==
--- NOTE | 2021-01-30 09:24 | DI.US.S_ITS ---
ULTRASOUND OF LEFT BREAST: 01/30/2021 CLINICAL: 6 month follow-up biopsy. Comparison is made to exams dated: 01/30/2021 mammogram, 07/06/2020 ultrasound, 07/06/2020 mammogram, 04/25/2020 ultrasound biopsy, 04/25/2020 mammogram, and 04/17/2020 ultrasound [facility]. Color flow and real-time ultrasound of the left breast were performed. Magdaleno scale images of the real-time examination were reviewed. There is a benign dilated duct in the left breast at 3 o'clock anterior depth. This dilated duct displays internal echoes. There also is a stable benign mass in the left breast at 3 o'clock middle depth. This mass is of mixed echogenicity. There is an associated biopsy clip. IMPRESSION: BENIGN There is no sonographic evidence of malignancy. The previously described dilated duct and previous biopsied mass are both unchanged and are benign findings. No further follow-up is needed. Return to annual mammogram screening schedule is recommended. This exam was interpreted at Station ID: [id number]. Electronically Signed By: Randolph Lee M.D. jr/:01/30/2021 14:16:57 letter sent: Normal Exam Ultrasound BI-RADS: 2 Benign
--- NOTE | 2021-01-30 09:24 | DI.MG.S_ITS ---
UNILATERAL LEFT DIGITAL DIAGNOSTIC MAMMOGRAM 3D/2D SHORT-TERM FOLLOW-UP: 01/30/2021 CLINICAL: Short term follow up. Comparison is made to exams dated: 07/06/2020 mammogram, 04/25/2020 mammogram, and 04/17/2020 mammogram - [facility]. There are scattered fibroglandular elements in left breast. There are two biopsy clips in the left breast with some associated scarring. No suspicious mass or microcalcification. No other significant masses or calcifications are seen in the breast. IMPRESSION: INCOMPLETE: NEEDS ADDITIONAL IMAGING EVALUATION No mammographic evidence of malignancy. A targeted ultrasound of the left breast was previously recommended and will be performed immediately following this exam. This exam was interpreted at Station ID: [id number]. NOTE: For mammograms, a report in lay terms will be sent to the patient. Approximately 15% of breast malignancies will not be visualized mammographically. In the management of a palpable breast mass, a negative mammogram must not discourage biopsy of a clinically suspicious lesion. Electronically Signed By: Randolph Lee M.D. jr/:01/30/2021 13:26:01 ACR BI-RADS Category 0: Incomplete 3340F
== END ==
PROVIDERS: PCP Physician Assistant; Referring Provider Obstetrics & Gynecology; Visit Provider Obstetrics & Gynecology
DX: N64.52 Nipple discharge; N60.42 Mammary duct ectasia of left breast; N63.25 Unspecified lump in the left breast, overlapping quadrants; R92.2 Inconclusive mammogram
CPT/HCPCS: 76642; 77065; G0279

== ENCOUNTER 2021-07-10 19:50 | Inpatient (IN) | payer BC, OTHER, SELFPAY ==
[2021-07-10] VITALS (18 sets, daily range): BP systolic 110–124; BP diastolic 61–74; PULSE 103–115; RESP 16–32; TEMP 36.6; O2SAT 90–95
--- NOTE | 2021-07-10 20:14 | DI.RAD.S_ITS ---
PROCEDURE: XR CHEST 1V INDICATIONS: flu-like symptoms TECHNIQUE: One view of the chest was acquired. COMPARISON: [facility], CR, XR CHEST 1V, 07/07/2019, 12:26. FINDINGS: Surgical changes and devices: None. Lungs and pleura: Subtle opacities are seen in bilateral lower lung cruz. No pleural effusions or pneumothorax. Mediastinum: There is suggestion of prominent lymph nodes in bilateral hilar region. Heart size is normal. Bones and chest wall: No suspicious bony lesions. Overlying soft tissues appear unremarkable. IMPRESSION: Finding is concerning for early developing bilateral lower lobe infiltrates. There is also suggestion of prominent bilateral hilar lymph nodes. No pleural effusion or pneumothorax. Dictated by: Elia Hardin M.D. on 07/10/2021 at 20:58 Approved by: Elia Hardin M.D. on 07/10/2021 at 20:59
--- NOTE | 2021-07-10 20:32 | ED.GENADULT ---
HPI - General Adult General Chief complaint: Shortness of Breath/Dyspnea Stated complaint: Covid +, SOB Time Seen by Provider: 07/10/21 20:08 Source: patient Mode of arrival: Ambulatory Limitations: no limitations History of Present Illness HPI narrative: 46-year-old female. On vaccinated against COVID-19. Thinks that she was exposed to COVID-19 during the . Couple days later started having symptoms. Had a home test approximately 10 days ago that was positive. Since that time as been checking her pulse oximetry at home. Today started noticing that her oxygen saturations were less than 90 consistently. Has had some cough and shortness of breath. Related Data Home Medications Medication Instructions Recorded Confirmed omeprazole 20 mg tablet,delayed 20 mg PO DAILY 05/25/19 07/10/21 release amlodipine 10 mg tablet 10 mg PO DAILY 09/08/19 07/10/21 metoprolol succinate 50 mg capsule 50 mg PO DAILY 09/08/19 07/10/21 sprinkle, ext. release 24 hr montelukast 10 mg tablet 10 mg PO DAILY 05/23/20 07/10/21 (Singulair) doxycycline hyclate 50 mg capsule 50 mg PO DAILY 07/10/21 07/10/21 losartan 50 mg tablet 50 mg PO DAILY 07/10/21 07/10/21 nebivolol 10 mg tablet 10 mg PO DAILY 07/10/21 07/10/21 rosuvastatin 5 mg tablet 5 mg PO BEDTIME 07/10/21 07/10/21 Allergies Allergy/AdvReac Type Severity Reaction Status Date / Time ampicillin [AMPICILLIN] Allergy Unknown Verified 07/10/21 22:09 Penicillins [PENICILLINS] Allergy Unknown A CHILD Verified 07/10/21 22:09 Review of Systems Constitutional Constitutional: Reports fatigue and Denies fever(s) Cardiovascular Cardiovascular: Reports as per HPI and Reports system reviewed and no additional complaints, except as documented Respiratory Respiratory: Reports as per HPI and Reports system reviewed and no additional complaints, except as documented Gastrointestinal Gastrointestinal: Reports system reviewed and no additional complaints, except as documented Musculoskeletal Musculoskeletal: Reports system reviewed and no additional complaints, except as documented Integumentary/Breasts Skin/Breast: Reports system reviewed and no additional complaints, except as documented Endocrine Endocrine: Reports fatigue Hematologic/Lymphatic On Anticoagulants: No Patient History Medical History Blurry vision Cardiomyopathy Chicken pox (1979) Essential hypertension Hayfever Hearing loss Left bundle branch block (LBBB) Ovarian cyst Premature heartbeats (2001) Varicose veins of both lower extremities Surgical History Anesthesia History of right salpingo-oophorectomy (05/02/09) Status post tonsillectomy and adenoidectomy (1979) Status post tubal ligation (05/02/09) Family History Father Age: 69 Hypertension Obesity Cardiomegaly Chronic obstructive pulmonary disease, unspecified COPD type Grandfather Heart disease Hypertension Stroke Heart attack Grandmother Diabetes mellitus Hypertension High cholesterol Cirrhosis, nonalcoholic Mother Age: 66 Hypertension Grandfather Heart disease Hypertension Stroke Grandmother Diabetes mellitus Mental health problem Kidney failure Dementia Sister Age: 41 Obesity Type 2 diabetes mellitus Family/Other No problems noted. Family/Other No problems noted. Family/Other Breast cancer Social History Smoking Status: Never smoker Smoking Status: Never smoker Exam Initial Vital Signs Initial Vital Signs: Vital Signs Temperature 97.9 F 07/10/21 19:57 Pulse Rate 109 H 07/10/21 19:57 Respiratory Rate 22 07/10/21 19:57 Blood Pressure 124/65 07/10/21 19:57 Pulse Oximetry 90 L 07/10/21 19:57 Const General: cooperative and comfortable HENMT Head: normal to inspection Resp Effort & Inspection: labored, no respiratory distress and tachypneic Auscultation: clear to auscultation bilaterally Cardio Rate: tachycardic Rhythm: regular rhythm GI Palpation: soft and No tender Skin General: no rashes or lesions noted Neuro General: patient alert, patient awake and moves all extremities Extrem General: normal to inspection and capillary refill normal Psych Appearance: grossly normal and well kempt Course Orders Ordered: ED Orders 07/10/21 20:14 XR chest 1V Stat EKG-12 Lead Stat 07/10/21 20:30 C-Reactive Protein Quant Stat Complete Blood Count AUTO DIFF Stat Comprehensive Metabolic Panel Stat D Dimer Stat Ferritin Stat Lactate (Lactic Acid) Stat Lactate Dehydrogenase Stat NT-proBNP (BNP-Adult 18+) Stat Procalcitonin Stat Troponin & CK Cardiac Panel Stat Urinalysis and Microscopic Stat 07/10/21 20:37 Blood Culture Stat 07/10/21 21:54 Respiratory Panel (Film Array) Stat 07/10/21 22:03 CT angio chest PE protocol Stat Acetaminophen (Acetaminophen 325 Mg Tablet) 650 mg PO Q6HR PRN PRN Reason: Fever/Mild Pain (1-3) Hydrocodone Bitart/Acetaminophen (Hydrocodone/Acet 5/325 Tablet) 2 tab PO Q4HR PRN PRN Reason: Pain, Severe (7-10) Albuterol (Albuterol Hfa Mdi 60 Puff/8 Gm Inhaler) 2 puff INH RTQ4HR PRN PRN Reason: Shortness Of Breath Amlodipine Besylate (Amlodipine 5 Mg Tablet) 10 mg PO DAILY [facility] Dexamethasone (Dexamethasone 10 Mg/Ml Vial) 6 mg IV DAILY [facility] Heparin Sodium (Porcine) (Heparin 5,000 Unit/Ml Vial) 5,000 unit SUBCUT BID [facility] Last Admin: 07/11/21 00:02 Dose: 5,000 unit Documented by: LURDES Remdesivir 100 mg/ Sodium (Chloride) 250 mls @ 250 mls/hr IV DAILY [facility] Stop: 07/14/21 09:59 Sodium Chloride (Normal Saline 0.9%) 1,000 mls @ 100 mls/hr IV CONT [facility] Stop: 07/11/21 05:14 Last Admin: 07/11/21 02:23 Dose: 100 mls/hr Documented by: LURDES Lorazepam (Lorazepam 0.5 Mg Tablet) 0.5 mg PO Q6HR PRN PRN Reason: Anxiety Losartan Potassium (Losartan 50 Mg Tablet) 50 mg PO DAILY [facility] Melatonin (Melatonin 3 Mg Tablet) 6 mg PO BEDTIME PRN PRN Reason: Insomnia Naloxone HCl (Naloxone 0.4 Mg/Ml Vial) 0.2 mg IV Q2MIN PRN PRN Reason: Opiate Reversal Non-Formulary Medication (Metoprolol Succinate) 50 mg PO DAILY [facility] Non-Formulary Medication (Omeprazole) 20 mg PO DAILY [facility] Non-Formulary Medication (Rosuvastatin) 5 mg PO BEDTIME [facility] Ondansetron HCl (Ondansetron 4 Mg/2 Ml Inj) 4 mg IV Q8HR PRN PRN Reason: Nausea And Vomiting Discontinued Medications Albuterol/Ipratropium (Albuterol/Ipratropium 3 Ml Ampul) 3 ml INH NOW ONE Stop: 07/10/21 20:27 Last Admin: 07/10/21 20:33 Dose: 3 ml Documented by: ASHTYN Dexamethasone (Dexamethasone 10 Mg/Ml Vial) 10 mg IV NOW ONE Stop: 07/10/21 21:30 Last Admin: 07/10/21 22:07 Dose: 10 mg Documented by: VIDHYA Remdesivir 200 mg/ Sodium (Chloride) 250 mls @ 250 mls/hr IV NOW ONE Stop: 07/10/21 22:28 Last Infusion: 07/10/21 23:08 Dose: 0 mls/hr Documented by: Admin: 07/10/21 22:08 Dose: 250 mls/hr Documented by: VIDHYA POTASSIUM CHLORIDE IN WATER (Potassium Cl 10 Meq/100 Ml Diana) 10 meq in 100 mls @ 100 mls/hr IV Q1H LILIANA Stop: 07/11/21 02:44 Last Admin: 07/11/21 03:22 Dose: 50 mls/hr Documented by: Infusion: 07/11/21 03:14 Dose: 0 mls/hr Documented by: Admin: 07/11/21 01:07 Dose: 100 mls/hr Documented by: LURDES Vital Signs Vital signs: Vital Signs - 8 hr 07/10/21 19:57 07/10/21 20:23 07/10/21 20:30 Temperature 97.9 F Pulse Rate 109 H 109 H 109 H Respiratory Rate 22 28 H Blood Pressure 124/65 115/70 Pulse Oximetry 90 L 91 94 07/10/21 20:45 07/10/21 20:53 07/10/21 21:00 Temperature Pulse Rate 113 H 105 H 113 H Respiratory Rate 22 20 26 H Blood Pressure 113/67 Pulse Oximetry 95 94 94 07/10/21 21:15 07/10/21 21:30 07/10/21 21:45 Temperature Pulse Rate 109 H 112 H 108 H Respiratory Rate 17 25 H 22 Blood Pressure 110/74 Pulse Oximetry 95 93 94 07/10/21 22:00 Temperature Pulse Rate 111 H Respiratory Rate 18 Blood Pressure 110/69 Pulse Oximetry 94 Medical Decision Making Lab Data Lab results reviewed: Yes I reviewed the patient's lab results. Result diagrams: 07/10/21 20:30 07/10/21 20:30 Labs: Lab Results 07/10/21 07/10/21 07/10/21 Range/Units 20:30 20:30 20:30 WBC 6.1 (4.5-11.0) X10^3/uL RBC 4.25 (4.0-5.2) X10^6/uL Hgb 13.5 (12.0-16.0) g/dL Hct 39.0 (36-46) % MCV 91.7 (80-100) fL MCH 31.7 (26-34) PG MCHC 34.6 (30-36) % RDW 13.3 (11.6-14.8) % Plt Count 292 (150-400) X10^3/uL Neut % (Auto) 79.9 H (50-75) % Lymph % (Auto) 13.8 L (25-40) % [place] % (Auto) 6.1 (3-14) % Eos % (Auto) 0.0 L (2-4) % Baso % (Auto) 0.2 (0-2) % Neut # (Auto) 4900 (8750-0926) /uL Lymph # (Auto) 800 L (0266-8066) /uL [place] # (Auto) 400 (0-900) /uL Eos # (Auto) 0 (0-450) /uL Baso # (Auto) 0 (0-100) /uL ESR (0-20) MM/HR D-Dimer 393 H (<230) ng/mL Sodium (137-145) mmol/L Potassium (3.4-5.1) mmol/L Chloride (98-107) mmol/L Carbon Dioxide (22-32) mmol/L BUN (7-17) mg/dL Creatinine (0.52-1.04) mg/dL Estimated GFR (>60) mL/min BUN/Creatinine Ratio (6-22) Glucose (70-100) mg/dL Lactate (0.7-2.1) mmol/L Calcium (8.4-10.2) mg/dL Magnesium (1.6-2.3) mg/dL Ferritin (6-137) ng/mL Total Bilirubin (0.2-1.3) mg/dL AST (14-36) IU/L ALT (<35) IU/L Alkaline Phosphatase (38-126) U/L Lactate Dehydrogenase (313-618) U/L Total Creatine Kinase (30-135) U/L CK-MB (CK-2) (<2.37) ng/mL CK-MB (CK-2) Rel Index (1.5-5.0) % Troponin I (0.01-0.034) ng/mL C-Reactive Protein (<1.0) mg/dL NT-Pro-B Natriuret Pep (<125) pg/mL Total Protein (6.3-8.2) g/dL Albumin (3.5-5.0) g/dL Globulin (1.7-4.1) g/dL Albumin/Globulin Ratio (1.0-2.8) Procalcitonin 0.15 (<0.5) ng/mL Urine Color Urine Appearance Urine pH (4.5-8.0) Ur Specific [place] (1.000-1.035) Urine Protein (Negative) Urine Glucose (UA) (Negative) g/dL Urine Ketones (NEGATIVE) Urine Occult Blood (Negative) Urine Nitrate (Negative) Urine Bilirubin (NEGATIVE) Urine Urobilinogen (0.2) E.U./dL Ur Leukocyte Esterase (NEGATIVE) Urine RBC (0-5/HPF) Urine WBC (0-5/HPF) Ur Squamous Epith Cells (0-5/HPF) Urine Bacteria (None) Ur Culture Indicated? 07/10/21 07/10/21 07/10/21 Range/Units 20:30 20:30 20:30 WBC (4.5-11.0) X10^3/uL RBC (4.0-5.2) X10^6/uL Hgb (12.0-16.0) g/dL Hct (36-46) % MCV (80-100) fL MCH (26-34) PG MCHC (30-36) % RDW (11.6-14.8) % Plt Count (150-400) X10^3/uL Neut % (Auto) (50-75) % Lymph % (Auto) (25-40) % [place] % (Auto) (3-14) % Eos % (Auto) (2-4) % Baso % (Auto) (0-2) % Neut # (Auto) (3044-9066) /uL Lymph # (Auto) (5503-9693) /uL [place] # (Auto) (0-900) /uL Eos # (Auto) (0-450) /uL Baso # (Auto) (0-100) /uL ESR (0-20) MM/HR D-Dimer (<230) ng/mL Sodium 134 L (137-145) mmol/L Potassium 3.3 L (3.4-5.1) mmol/L Chloride 96 L (98-107) mmol/L Carbon Dioxide 28 (22-32) mmol/L BUN 10 (7-17) mg/dL Creatinine 0.77 (0.52-1.04) mg/dL Estimated GFR > 60.0 (>60) mL/min BUN/Creatinine Ratio 13.0 (6-22) Glucose 172 H (70-100) mg/dL Lactate 1.6 (0.7-2.1) mmol/L Calcium 8.8 (8.4-10.2) mg/dL Magnesium (1.6-2.3) mg/dL Ferritin 827 H (6-137) ng/mL Total Bilirubin 0.6 (0.2-1.3) mg/dL AST 122 H (14-36) IU/L ALT 69 H (<35) IU/L Alkaline Phosphatase 81 (38-126) U/L Lactate Dehydrogenase 1886 H (313-618) U/L Total Creatine Kinase 1583 H (30-135) U/L CK-MB (CK-2) 3.63 H (<2.37) ng/mL CK-MB (CK-2) Rel Index 0.2 L (1.5-5.0) % Troponin I < 0.012 (0.01-0.034) ng/mL C-Reactive Protein 4.1 H (<1.0) mg/dL NT-Pro-B Natriuret Pep 53 (<125) pg/mL Total Protein 7.2 (6.3-8.2) g/dL Albumin 4.1 (3.5-5.0) g/dL Globulin 3.1 (1.7-4.1) g/dL Albumin/Globulin Ratio 1.3 (1.0-2.8) Procalcitonin (<0.5) ng/mL Urine Color Yellow Urine Appearance Clear Urine pH 6.0 (4.5-8.0) Ur Specific [place] 1.015 (1.000-1.035) Urine Protein 2+ H (Negative) Urine Glucose (UA) Negative (Negative) g/dL Urine Ketones Negative (NEGATIVE) Urine Occult Blood 3+ H (Negative) Urine Nitrate Negative (Negative) Urine Bilirubin Negative (NEGATIVE) Urine Urobilinogen 1.0 (0.2) E.U./dL Ur Leukocyte Esterase Negative (NEGATIVE) Urine RBC None seen (0-5/HPF) Urine WBC 1-5/hpf (0-5/HPF) Ur Squamous Epith Cells 1-5 /hpf (0-5/HPF) Urine Bacteria None seen (None) Ur Culture Indicated? Cult not indicated 07/10/21 07/10/21 07/10/21 Range/Units 20:30 20:30 20:30 WBC (4.5-11.0) X10^3/uL RBC (4.0-5.2) X10^6/uL Hgb (12.0-16.0) g/dL Hct (36-46) % MCV (80-100) fL MCH (26-34) PG MCHC (30-36) % RDW (11.6-14.8) % Plt Count (150-400) X10^3/uL Neut % (Auto) (50-75) % Lymph % (Auto) (25-40) % [place] % (Auto) (3-14) % Eos % (Auto) (2-4) % Baso % (Auto) (0-2) % Neut # (Auto) (4023-6505) /uL Lymph # (Auto) (5060-6424) /uL [place] # (Auto) (0-900) /uL Eos # (Auto) (0-450) /uL Baso # (Auto) (0-100) /uL ESR 43 H (0-20) MM/HR D-Dimer (<230) ng/mL Sodium (137-145) mmol/L Potassium (3.4-5.1) mmol/L Chloride (98-107) mmol/L Carbon Dioxide (22-32) mmol/L BUN (7-17) mg/dL Creatinine (0.52-1.04) mg/dL Estimated GFR (>60) mL/min BUN/Creatinine Ratio (6-22) Glucose (70-100) mg/dL Lactate (0.7-2.1) mmol/L Calcium (8.4-10.2) mg/dL Magnesium 2.2 (1.6-2.3) mg/dL Ferritin (6-137) ng/mL Total Bilirubin (0.2-1.3) mg/dL AST (14-36) IU/L ALT (<35) IU/L Alkaline Phosphatase (38-126) U/L Lactate Dehydrogenase (313-618) U/L Total Creatine Kinase (30-135) U/L CK-MB (CK-2) (<2.37) ng/mL CK-MB (CK-2) Rel Index (1.5-5.0) % Troponin I (0.01-0.034) ng/mL C-Reactive Protein (<1.0) mg/dL NT-Pro-B Natriuret Pep Cancelled (<125) pg/mL Total Protein (6.3-8.2) g/dL Albumin (3.5-5.0) g/dL Globulin (1.7-4.1) g/dL Albumin/Globulin Ratio (1.0-2.8) Procalcitonin (<0.5) ng/mL Urine Color Urine Appearance Urine pH (4.5-8.0) Ur Specific [place] (1.000-1.035) Urine Protein (Negative) Urine Glucose (UA) (Negative) g/dL Urine Ketones (NEGATIVE) Urine Occult Blood (Negative) Urine Nitrate (Negative) Urine Bilirubin (NEGATIVE) Urine Urobilinogen (0.2) E.U./dL Ur Leukocyte Esterase (NEGATIVE) Urine RBC (0-5/HPF) Urine WBC (0-5/HPF) Ur Squamous Epith Cells (0-5/HPF) Urine Bacteria (None) Ur Culture Indicated? Imaging Data Chest x-ray: Radiologist's Impression: [address] [address] XRay Report Signed Patient: Angie Cadnea MR#: [id number] : 1975 Acct:[id number] Age/Sex: 46 / F Date of Service: 07/10/21 Loc: ED Accession Number: [id number] ?? Procedure: XR chest 1V Ordering Provider: Rambo Shaw D.O. PROCEDURE:? XR CHEST 1V ? INDICATIONS:? flu-like symptoms ? TECHNIQUE:? One view of the chest was acquired.? ? COMPARISON:? formerly [facility], XR CHEST 1V, 07/07/2019, 12:26. ? FINDINGS:? ? Surgical changes and devices:? None.? ? Lungs and pleura:? Subtle opacities are seen in bilateral lower lung cruz.? No pleural effusions or pneumothorax.? ? Mediastinum:? There is suggestion of prominent lymph nodes in bilateral hilar region.? Heart size is normal.? ? Bones and chest wall:? No suspicious bony lesions.? Overlying soft tissues appear unremarkable.? ? IMPRESSION:? Finding is concerning for early developing bilateral lower lobe infiltrates. ?There is also suggestion of prominent bilateral hilar lymph nodes.? No pleural effusion or pneumothorax. ? ? Dictated by: Elia Hardin M.D. on 07/10/2021 at 20:58 ? ? Approved by: Elia Hardin M.D. on 07/10/2021 at 20:59?? CT scan - chest: Radiologist's Impression: [place] [address] CT Scan Report Signed Patient: Angie Cadena MR#: [id number] : 1975 Acct:[id number] Age/Sex: 46 / F Date of Service: 07/10/21 Loc: 90F-1 Accession Number: [id number] ?? Procedure: CT angio chest PE protocol Ordering Provider: Rambo Shaw D.O. PROCEDURE:? CT ANGIO CHEST PE PROTOCOL ? INDICATIONS:? Chest pain, shortness of breath, tachycardia ? TECHNIQUE:? After the administration of intravenous contrast, 2 mm thick sections acquired from the pulmonary apices to the posterior costophrenic angles.? 3-dimensional maximum intensity projection (MIP) coronal and sagittal reformats were then acquired through the thorax.? For radiation dose reduction, the following was used:? automated exposure control, adjustment of mA and/or kV according to patient size.? ? COMPARISON:? formerly [facility], XR CHEST 1V, 07/10/2021, 20:41. ? FINDINGS:? Image quality:? Excellent.? ? Pulmonary arteries:? Pulmonary arteries are normal in size, and demonstrate no intraluminal filling defects to suggest central pulmonary embolism.? ? Lungs and pleura:? Multifocal areas of patchy and confluent opacity are present bilaterally most significant in the bases. ? Mediastinum:? Heart size is enlarged, without pericardial effusion.? No mediastinal or hilar adenopathy.? Thoracic aorta is normal in caliber and enhancement.? Esophagus is normal in caliber, without hiatal hernia.? ? Bones and chest wall:? No suspicious bony lesions.? Ribs and thoracic spine appear intact throughout.? Thyroid gland is on.? No axillary or supraclavicular adenopathy.? ? Abdomen:? Calcifications are present within the spleen.? Otherwise, visualized upper abdominal solid organs appear normal in the early arterial phase of enhancement.? ? IMPRESSION:? ? 1. No embolism. ? 2. Prominent multifocal patchy and consolidative opacities within the lungs most suggestive of pneumonia.? Recommend interval follow up after appropriate therapy to document resolution exclude presence of underlying lesion? ? ? Dictated by: Mary Arreola M.D. on 07/10/2021 at 22:52 ? ? Approved by: Mary Arreola M.D. on 07/10/2021 at 22:54?? MDM Narrative Medical decision making narrative: Patient was hypoxic to the mid 80s on room air specifically with any sort of exertion. This did improve with oxygen by nasal cannula. Chest x-ray concerning for developing pneumonia. Patient was COVID positive. CTA was ordered because of the elevated D-dimer. Shows no signs of pulmonary embolism. Discussed the case with SRINIVAS Schreiber the [facility] hospital provider. Patient does require admission to the hospital secondary to the hypoxia and need for oxygen. Discharge Plan Departure Patient Disposition: Admitted As Inpatient Clinical Impression: COVID-19, Hypoxia Admit Date/Time: 07/10/21 22:14 Admit Provider: Carline Schreiber
[2021-07-10] MEDS: ALBUTEROL/IPRATROPIUM 3 ML AMPUL INH (20:33)
[2021-07-10 21:04] LABS: Add Manual Diff / Slide Review NO; Appearance Urine UA CLEAR; Basophils Absolute Auto 0 /uL (0-100); Basophils Percent Auto 0.2 % (0-2); Bilirubin Urine UA NEGATIVE (NEGATIVE); Color Urine UA YELLOW; Eosinophils Absolute Auto 0 /uL (0-450); Glucose Urine UA NEGATIVE (Negative); Hemoglobin 13.5 g/dL (12.0-16.0); Ketones Urine UA NEGATIVE (NEGATIVE); Leukocyte Esterase Urine UA NEGATIVE (NEGATIVE); Lymphocytes Absolute Auto 800 /uL (1100-4500); Lymphocytes Percent Auto 13.8 % (25-40); Mean Corpuscular HGB Conc 34.6 % (30-36); Mean Corpuscular Hemoglobin 31.7 PG (26-34); Mean Corpuscular Volume 91.7 fL (80-100); Monocytes Absolute Auto 400 /uL (0-900); Monocytes Percent Auto 6.1 % (3-14); Neutrophils Absolute Auto 4900 /uL (1500-7000); Neutrophils Percent Auto 79.9 % (50-75); Nitrite Urine UA NEGATIVE (Negative); Occult Blood Urine UA 3+ (Negative); Platelet Count 292 X10^3/uL (150-400); Protein Urine UA 2+ (Negative); Red Blood Cell Count 4.25 X10^6/uL (4.0-5.2); Red Cell Distribution Width 13.3 % (11.6-14.8); Specific Gravity Urine UA 1.015 (1.000-1.035); White Blood Cell Count 6.1 X10^3/uL (4.5-11.0)
[2021-07-10 21:26] LABS: Lactate (Lactic Acid) 1.6 mmol/L (0.7-2.1)
[2021-07-10 21:28] LABS: Alanine Aminotransferase 69 IU/L (<35); Albumin 4.1 g/dL (3.5-5.0); Albumin Globulin Ratio 1.3 (1.0-2.8); Alkaline Phosphatase 81 U/L (38-126); Aspartate Aminotransferase 122 IU/L (14-36); Bilirubin Total 0.6 mg/dL (0.2-1.3); Blood Urea Nitrogen 10 mg/dL (7-17); Calcium 8.8 mg/dL (8.4-10.2); Carbon Dioxide 28 mmol/L (22-32); Chloride 96 mmol/L (98-107); Creatine Kinase 1583 U/L (30-135); Estimated Glomerular Filt Rate > 60.0 mL/min (>60); Globulin 3.1 g/dL (1.7-4.1); Glucose 172 mg/dL (70-100); HEMOLYSIS < 15 (0-50); Potassium 3.3 mmol/L (3.4-5.1); Sodium 134 mmol/L (137-145); Total Protein 7.2 g/dL (6.3-8.2)
[2021-07-10 21:36] LABS: D Dimer 393 ng/mL (<230)
[2021-07-10 21:40] LABS: NT-proBNP (BNP-Adult 18+) 53 pg/mL (<125); Troponin I < 0.012 ng/mL (0.01-0.034)
[2021-07-10 21:41] LABS: Bacteria Urine None Seen; Culture Indicated Urine Cult Not Indicated; RBC Urine None Seen (0-5/HPF); Squamous Epithelial Cell Urine 1-5 /HPF (0-5/HPF); WBC Urine 1-5/HPF (0-5/HPF)
[2021-07-10 21:43] LABS: CKMB % Relative Index 0.2 % (1.5-5.0); Creatine Kinase MB 3.63 ng/mL (<2.37)
[2021-07-10 21:44] LABS: Procalcitonin 0.15 ng/mL (<0.5)
[2021-07-10 21:57] LABS: C-Reactive Protein Quant 4.1 mg/dL (<1.0); Lactate Dehydrogenase 1886 U/L (313-618)
[2021-07-10 22:03] LABS: Ferritin 827 ng/mL (6-137)
--- NOTE | 2021-07-10 22:03 | DI.CT.S_ITS ---
PROCEDURE: CT ANGIO CHEST PE PROTOCOL INDICATIONS: Chest pain, shortness of breath, tachycardia TECHNIQUE: After the administration of intravenous contrast, 2 mm thick sections acquired from the pulmonary apices to the posterior costophrenic angles. 3-dimensional maximum intensity projection (MIP) coronal and sagittal reformats were then acquired through the thorax. For radiation dose reduction, the following was used: automated exposure control, adjustment of mA and/or kV according to patient size. COMPARISON: [facility], CR, XR CHEST 1V, 07/10/2021, 20:41. FINDINGS: Image quality: Excellent. Pulmonary arteries: Pulmonary arteries are normal in size, and demonstrate no intraluminal filling defects to suggest central pulmonary embolism. Lungs and pleura: Multifocal areas of patchy and confluent opacity are present bilaterally most significant in the bases. Mediastinum: Heart size is enlarged, without pericardial effusion. No mediastinal or hilar adenopathy. Thoracic aorta is normal in caliber and enhancement. Esophagus is normal in caliber, without hiatal hernia. Bones and chest wall: No suspicious bony lesions. Ribs and thoracic spine appear intact throughout. Thyroid gland is on. No axillary or supraclavicular adenopathy. Abdomen: Calcifications are present within the spleen. Otherwise, visualized upper abdominal solid organs appear normal in the early arterial phase of enhancement. IMPRESSION: 1. No embolism. 2. Prominent multifocal patchy and consolidative opacities within the lungs most suggestive of pneumonia. Recommend interval follow up after appropriate therapy to document resolution exclude presence of underlying lesion Dictated by: Mary Arreola M.D. on 07/10/2021 at 22:52 Approved by: Mary Arreola M.D. on 07/10/2021 at 22:54
[2021-07-10] MEDS: DEXAMETHASONE 10 MG/ML VIAL IV (22:07)
[2021-07-10] MEDS: REMDESIVIR 200 MG in SODIUM CHLORIDE 0.9% 210 ML 250 ML IV (22:08)
[2021-07-10 23:21] LABS: Magnesium 2.2 mg/dL (1.6-2.3)
[2021-07-10 23:38] LABS: Erythrocyte Sedimentation Rate 43 MM/HR (0-20)
[2021-07-11] VITALS (42 sets, daily range): BP systolic 106–141; BP diastolic 58–85; PULSE 88–120; RESP 16–43; TEMP 36.3–36.9; O2SAT 91–97; BMI 29.7
[2021-07-11] MEDS: HEPARIN 5,000 UNIT/ML VIAL 5000 UNIT SUBCUT ×3 (00:02→21:41)
--- NOTE | 2021-07-11 00:36 | P.HP_ITS ---
History of Present Illness History of Present Illness Date Patient Seen: 07/10/21 Time Patient Seen: 10:50 Chief complaint: Covid +, SOB Narrative: Patient is a 46-year-old female Angie Wang with a medical history of hypertension, cardiomyopathy and left bundle-branch block who presented to the ED today with decreasing O2 saturations on home monitoring less than 90% on room air. Patient is unvaccinated for COVID-19 and she in 2 of her children at home tested positive on the with an at home test. She proceeded to monitor her pulse oxygenation rates at home and noted that they started decreasing today. When patient presented to the ED she was satting in the low 80s on room air, she was also slightly tachycardic and tachypneic. The patient currently denies chest pain, shortness of breath, she states she does have some lost of taste she denies a fever body aches or chills, cough, nausea, vomiting, abdominal pain, diarrhea, blood in her urine or stool, denies recent injury illness or trauma. Patient denies any further cardiac history or respiratory history. Patient's electronic scale assembler and tester is Dr. De Los Santos. Upon admit patient's temp 97.9?, BP 115/70, HR 105, R 20, O2 saturation 94% on 5 L nasal cannula. Patient's chemistries demonstrated a sodium 134, chloride 96, hypokalemia 3.3, glucose 172, patient's AST 122, ALT 69, procalcitonin WNL, urine WNL troponin 1. WNL. Patient's chest x-ray demonstrated early developing bilateral lower lobe infiltrates suggestive of pneumonia with prominent bilateral hilar lymph nodes was negative for pleural effusions. Patient demonstrates mild rhabdomyolysis, ESR 43, CRP 4.1, also patient's CK-MB 3.63, lactate dehy 1886, lactate was normal 1.6, ferritin 827. D-Dimer was elevated at 393- CTA PE demonstrated no embolism, but found a prominent multifocal patchy and consolidative opacities within the lungs most suggestive of pneumonia. Patient admitted for acute hypoxic respiratory failure secondary to COVID pneumonia, rhabdomyolysis with hypokalemia. Patient History Medical History (Updated 07/11/21 @ 00:49 by FARSHAD Owens-MAIK) Blurry vision Cardiomyopathy Chicken pox (1979) Essential hypertension Hayfever Hearing loss Left bundle branch block (LBBB) Ovarian cyst Premature heartbeats (2001) Varicose veins of both lower extremities Surgical History Anesthesia History of right salpingo-oophorectomy (05/02/09) Status post tonsillectomy and adenoidectomy (1979) Status post tubal ligation (05/02/09) Family & Social History Family History Father Age: 69 Hypertension Obesity Cardiomegaly Chronic obstructive pulmonary disease, unspecified COPD type Grandfather Heart disease Hypertension Stroke Heart attack Grandmother Diabetes mellitus Hypertension High cholesterol Cirrhosis, nonalcoholic Mother Age: 66 Hypertension Grandfather Heart disease Hypertension Stroke Grandmother Diabetes mellitus Mental health problem Kidney failure Dementia Sister Age: 41 Obesity Type 2 diabetes mellitus Family/Other No problems noted. Family/Other No problems noted. Family/Other Breast cancer Tobacco & Substance use: Smoking Status Never smoker Meds Home Medications and Allergies Home Medications Medication Instructions Recorded Confirmed Type omeprazole 20 mg tablet,delayed 20 mg PO DAILY 05/25/19 07/10/21 History release amlodipine 10 mg tablet 10 mg PO DAILY 09/08/19 07/10/21 History metoprolol succinate 50 mg capsule 50 mg PO DAILY 09/08/19 07/10/21 History sprinkle, ext. release 24 hr montelukast 10 mg tablet 10 mg PO DAILY 05/23/20 07/10/21 History (Singulair) doxycycline hyclate 50 mg capsule 50 mg PO DAILY 07/10/21 07/10/21 History losartan 50 mg tablet 50 mg PO DAILY 07/10/21 07/10/21 History nebivolol 10 mg tablet 10 mg PO DAILY 07/10/21 07/10/21 History rosuvastatin 5 mg tablet 5 mg PO BEDTIME 07/10/21 07/10/21 History Allergies Allergy/AdvReac Type Severity Reaction Status Date / Time ampicillin [AMPICILLIN] Allergy Unknown Verified 07/10/21 22:09 Penicillins [PENICILLINS] Allergy Unknown A CHILD Verified 07/10/21 22:09 Review of Systems Review of Systems Narrative: All 12 point systems reviewed with the patient and are negative except otherwise documented. Exam Vital Signs (past 8 hours): - 07/10/21 19:57 07/10/21 20:23 07/10/21 20:30 Temperature 97.9 F Pulse Rate 109 H 109 H 109 H Respiratory Rate 22 28 H Blood Pressure 124/65 115/70 Pulse Oximetry 90 L 91 94 07/10/21 20:45 07/10/21 20:53 07/10/21 21:00 Temperature Pulse Rate 113 H 105 H 113 H Respiratory Rate 22 20 26 H Blood Pressure 113/67 Pulse Oximetry 95 94 94 07/10/21 21:15 07/10/21 21:30 07/10/21 21:45 Temperature Pulse Rate 109 H 112 H 108 H Respiratory Rate 17 25 H 22 Blood Pressure 110/74 Pulse Oximetry 95 93 94 07/10/21 22:00 07/10/21 22:15 07/10/21 22:36 Temperature Pulse Rate 111 H 113 H 109 H Respiratory Rate 18 32 H Blood Pressure 110/69 110/69 Pulse Oximetry 94 93 07/10/21 22:46 07/10/21 22:48 07/10/21 23:00 Temperature Pulse Rate 115 H 115 H 109 H Respiratory Rate 25 H 28 H 24 Blood Pressure 113/74 113/65 Pulse Oximetry 92 94 92 07/10/21 23:15 07/10/21 23:30 07/10/21 23:45 Temperature Pulse Rate 111 H 108 H 103 H Respiratory Rate 25 H 16 28 H Blood Pressure 122/61 Pulse Oximetry 92 95 93 07/11/21 00:00 Temperature Pulse Rate 115 H Respiratory Rate 30 H Blood Pressure 128/70 Pulse Oximetry 91 Oxygen Delivery Method Nasal Cannula Oxygen Flow Rate 4 Narrative Exam Narrative: General: Patient is a well-developed, well-nourished female in no distress at this time. HEENT: Normocephalic, atraumatic, extraocular muscles intact, oral pharynx is clear and mucous membranes are moist. Neck is supple and symmetric, trachea is midline, no adenopathy, no thyroid enlargement, nontender, no masses palpated. Negative for JVD Chest: Normal AP diameter and contour without kyphoscoliosis, no nasal flaring, retractions, or tachypneic labored breathing. Lungs: Auscultation of all lung cruz, bilateral crackles in bases,decreased air exchange, shallow breathing. Cardio: S1 & S2 with mildly tachycardic, rate and rhythm without murmur, rubs, or gallops, no carotid bruit, no cardiac pulsations present. Abdomen: Soft nontender, negative for organomegaly, or masses. Bowel sounds are present in all 4 quadrants without guarding or rebound, no CVA tenderness. Musculoskeletal: Muscle strength and tone are equal within normal limits, no deformity, crepitus, effusions, cyanosis, clubbing or edema present. Full range of motion intact radial and pedal pulses are normal. Skin: Warm dry and intact without rashes, ulcerations or petechiae. Neuro: Alert and orientated x3, strength is +5/5 in all extremities, sensation to touch intact, no gross deficits noted of cranial nerves. Psych: Patient has a well-kept appearance, appropriate affect, mental status attitude thought context and judgment are appropriate for age. Objective Labs Result Diagrams: 07/10/21 20:30 07/10/21 20:30 Labs: Laboratory Results - last 24 hr 07/10/21 07/10/21 07/10/21 20:30 20:30 20:30 WBC 6.1 RBC 4.25 Hgb 13.5 Hct 39.0 MCV 91.7 MCH 31.7 MCHC 34.6 RDW 13.3 Plt Count 292 Neut % (Auto) 79.9 H Lymph % (Auto) 13.8 L [place] % (Auto) 6.1 Eos % (Auto) 0.0 L Baso % (Auto) 0.2 Neut # (Auto) 4900 Lymph # (Auto) 800 L [place] # (Auto) 400 Eos # (Auto) 0 Baso # (Auto) 0 ESR D-Dimer 393 H Sodium Potassium Chloride Carbon Dioxide BUN Creatinine Estimated GFR BUN/Creatinine Ratio Glucose Lactate Calcium Magnesium Ferritin Total Bilirubin AST ALT Alkaline Phosphatase Lactate Dehydrogenase Total Creatine Kinase CK-MB (CK-2) CK-MB (CK-2) Rel Index Troponin I C-Reactive Protein NT-Pro-B Natriuret Pep Total Protein Albumin Globulin Albumin/Globulin Ratio Procalcitonin 0.15 Urine Color Urine Appearance Urine pH Ur Specific [place] Urine Protein Urine Glucose (UA) Urine Ketones Urine Occult Blood Urine Nitrate Urine Bilirubin Urine Urobilinogen Ur Leukocyte Esterase Urine RBC Urine WBC Ur Squamous Epith Cells Urine Bacteria Ur Culture Indicated? 12/07/21 12/07/21 12/07/21 20:30 20:30 20:30 WBC RBC Hgb Hct MCV MCH MCHC RDW Plt Count Neut % (Auto) Lymph % (Auto) [place] % (Auto) Eos % (Auto) Baso % (Auto) Neut # (Auto) Lymph # (Auto) [place] # (Auto) Eos # (Auto) Baso # (Auto) ESR D-Dimer Sodium 134 L Potassium 3.3 L Chloride 96 L Carbon Dioxide 28 BUN 10 Creatinine 0.77 Estimated GFR > 60.0 BUN/Creatinine Ratio 13.0 Glucose 172 H Lactate 1.6 Calcium 8.8 Magnesium Ferritin 827 H Total Bilirubin 0.6 AST 122 H ALT 69 H Alkaline Phosphatase 81 Lactate Dehydrogenase 1886 H Total Creatine Kinase 1583 H CK-MB (CK-2) 3.63 H CK-MB (CK-2) Rel Index 0.2 L Troponin I < 0.012 C-Reactive Protein 4.1 H NT-Pro-B Natriuret Pep 53 Total Protein 7.2 Albumin 4.1 Globulin 3.1 Albumin/Globulin Ratio 1.3 Procalcitonin Urine Color Yellow Urine Appearance Clear Urine pH 6.0 Ur Specific [place] 1.015 Urine Protein 2+ H Urine Glucose (UA) Negative Urine Ketones Negative Urine Occult Blood 3+ H Urine Nitrate Negative Urine Bilirubin Negative Urine Urobilinogen 1.0 Ur Leukocyte Esterase Negative Urine RBC None seen Urine WBC 1-5/hpf Ur Squamous Epith Cells 1-5 /hpf Urine Bacteria None seen Ur Culture Indicated? Cult not indicated 07/10/21 07/10/21 07/10/21 20:30 20:30 20:30 WBC RBC Hgb Hct MCV MCH MCHC RDW Plt Count Neut % (Auto) Lymph % (Auto) [place] % (Auto) Eos % (Auto) Baso % (Auto) Neut # (Auto) Lymph # (Auto) [place] # (Auto) Eos # (Auto) Baso # (Auto) ESR 43 H D-Dimer Sodium Potassium Chloride Carbon Dioxide BUN Creatinine Estimated GFR BUN/Creatinine Ratio Glucose Lactate Calcium Magnesium 2.2 Ferritin Total Bilirubin AST ALT Alkaline Phosphatase Lactate Dehydrogenase Total Creatine Kinase CK-MB (CK-2) CK-MB (CK-2) Rel Index Troponin I C-Reactive Protein NT-Pro-B Natriuret Pep Cancelled Total Protein Albumin Globulin Albumin/Globulin Ratio Procalcitonin Urine Color Urine Appearance Urine pH Ur Specific [place] Urine Protein Urine Glucose (UA) Urine Ketones Urine Occult Blood Urine Nitrate Urine Bilirubin Urine Urobilinogen Ur Leukocyte Esterase Urine RBC Urine WBC Ur Squamous Epith Cells Urine Bacteria Ur Culture Indicated? Assessment & Plan Assessment & Plan narrative: Angie Wang is a 46-year-old female with a history of cardiomyopathy, hypertension and left bundle branch block, unvaccinated COVID-19 who presented to the emergency room in acute hypoxic respiratory failure secondary to COVID pneumonia with hypokalemia and rhabdomyolysis. Patient requiring 5 L nasal cannula oxygenation to maintain O2 saturations above 90%. 1. Acute hypoxic respiratory failure secondary to COVID pneumonia, acute, present on admission -temp 97.9?, BP 115/70, HR 105, R 20, O2 saturation 94% on 5 L nasal cannula. sodium 134, chloride 96, glucose 172, AST 122, ALT 69, procalcitonin WNL, urine WNL troponin 1. WNL. -chest x-ray demonstrated early developing bilateral lower lobe infiltrates suggestive of pneumonia with prominent bilateral hilar lymph nodes was negative for pleural effusions. -D-Dimer was elevated at 393- CTA PE demonstrated no embolism, but found a prominent multifocal patchy and consolidative opacities within the lungs most suggestive of pneumonia. -patient given 10 of dexamethasone, 200 remdesivir-in ED -patient to have 6 mg dexamethasone q.day times 10 days, or until discharge, or into off O2. -remdesivir 100 mg Q 24 hours -albuterol HFA inhaler 2 puffs Q 4 hours as needed for cough or shortness of breath -Ativan for anxiety or agitation, melatonin for insomnia and sleep, hydrocodone- to mitigate pain to encourage frequent and prolonged proning. -Respiratory consult-VBG in am, O2 to maintain O2 saturations above 90%. -Blood cultures, respiratory panel pending -heparin 5000 units b.i.d. 2. Rhabdomyolysis, mild, acute, secondary hypokalemia, acute, present on admission -ESR 43, CRP 4.1, also patient's CK-MB 3.63, lactate dehy 1886, lactate was normal 1.6, ferritin 827. Potassium 3.3 -will initiate NS @100cc/hr x 4 hrs and attempt to address rhabdomyolysis and prevent developing TAMI while being conscious concerns regarding cardiac and respiratory fluid overload in the setting of COVID pneumonia. -strict I&Os, monitor for fluid overload. Repeat inflammatory markers tomorrow. monitor electrolytes & renal function. 3. Essential hypertension in the setting of cardiomyopathy with a left bundle- branch block, acute on chronic, present on admission -patient to be monitored on telemedicine, continue patient's amlodipine, losartan, metoprolol. -consider echo if cardiac function worsens. 4. Overweight as evidence by BMI of 28, acute on chronic, present on admission -consideration will be given for dietary counseling Code status:Full Surrogate decision maker: Spouse Marcello Wang COVID PCR:Positive 07/03/2021 COVID vaccination: Unvaccinated DVT/VTE prophylaxis: Heparin 5000 units b.i.d. and SCDs Disposition: Patient admitted to acute care expected length of stay greater than 2 midnights. I have utilized all available immediate resources to obtain, update, or review the patient's current medications. I confirmed that the patient's advanced care plan is present, Code status is documented and/or surrogate decision maker is listed in the patient's medical record. Time Spent With Patient Critical Care time: I spent a total of [] minutes of critical care time on this patient's care today; this time is exclusive of procedural time. Scores [facility] [place] coma scale eye opening: Spontaneous [place] coma scale verbal response: Orientated [place]ann[place] coma scale motor response: Obey commands Jeannine coma scale total score: 15 SOFA PaO2/FIO2: < 400 mmHg Platelets: >= 150 Bilirubin: < 1.2 mg/dL Hypotension: MAP >= 70 mmHg [place] Coma Scale: 15 Renal: < 1.2 mg/dL SOFA Score: 1 Wells' Criteria for PE Clinical signs and symptoms of DVT: No PE is #1 Dx or equally likely: Yes Heart rate > 100: Yes Immobilization at least 3 days or surg in previous 4 weeks: No History of PE or DVT: No Hemoptysis: No Malignancy w/Treatment within 6 months or palliative: No Wells' PE Score total: 4.5
[2021-07-11] MEDS: POTASSIUM CHLORIDE IN WATER 10 MEQ/100 ML PIGGYBACK 100 MEQ IV (01:07)
[2021-07-11 01:37] LABS: Adenovirus Not Detected (Not Detect); Coronavirus 229E Not Detected (Not Detect); Coronavirus HKU1 Not Detected (Not Detect); Coronavirus NL 63 Not Detected (Not Detect); SARS- CoV-2 Detected (Not Detecte)
[2021-07-11 01:38] LABS: B. parapertussis Not Detected (Not Detecte); Bordetella pertussis Not Detected (Not Detecte); Chlamydophila pneumoniae Not Detected (Not Detect); Coronavirus OC43 Not Detected (Not Detect); Human Metapneumovirus Not Detected (Not Detect); Human Rhinovirus/Enterovirus Not Detected (Not Detect); Influenza A Not Detected (Not Detect); Influenza B Not Detected (Not Detect); Mycoplasma pneumoniae Not Detected (Not Detect); Parainfluenza Virus 1 Not Detected (Not Detect); Parainfluenza Virus 2 Not Detected (Not Detect); Parainfluenza Virus 3 Not Detected (Not Detect); Parainfluenza Virus 4 Not Detected (Not Detect); Respiratory Syncytial Virus Not Detected (Not Detect)
[2021-07-11] MEDS: SODIUM CHLORIDE 0.9% 1,000 ML 100 ML IV (02:23)
[2021-07-11] MEDS: POTASSIUM CHLORIDE IN WATER 10 MEQ/100 ML PIGGYBACK 50 MEQ IV (03:22)
[2021-07-11 05:19] LABS: Add Manual Diff / Slide Review NO; Basophils Absolute Auto 0 /uL (0-100); Basophils Percent Auto 0.6 % (0-2); Eosinophils Absolute Auto 0 /uL (0-450); Hematocrit 36.4 % (36-46); Hemoglobin 12.6 g/dL (12.0-16.0); Lymphocytes Absolute Auto 400 /uL (1100-4500); Lymphocytes Percent Auto 10.9 % (25-40); Mean Corpuscular HGB Conc 34.7 % (30-36); Mean Corpuscular Hemoglobin 31.6 PG (26-34); Mean Corpuscular Volume 91.1 fL (80-100); Monocytes Absolute Auto 200 /uL (0-900); Neutrophils Absolute Auto 3400 /uL (1500-7000); Neutrophils Percent Auto 84.5 % (50-75); Platelet Count 267 X10^3/uL (150-400); Red Blood Cell Count 3.99 X10^6/uL (4.0-5.2); Red Cell Distribution Width 13.4 % (11.6-14.8)
[2021-07-11 05:24] LABS: Erythrocyte Sedimentation Rate 37 MM/HR (0-20)
[2021-07-11 05:39] LABS: Creatine Kinase 1352 U/L (30-135); Lactate Dehydrogenase 1570 U/L (313-618)
[2021-07-11 05:40] LABS: Alanine Aminotransferase 59 IU/L (<35); Albumin 3.5 g/dL (3.5-5.0); Albumin Globulin Ratio 1.3 (1.0-2.8); Alkaline Phosphatase 71 U/L (38-126); Aspartate Aminotransferase 88 IU/L (14-36); Bilirubin Total 0.4 mg/dL (0.2-1.3); Blood Urea Nitrogen 7 mg/dL (7-17); Calcium 8.3 mg/dL (8.4-10.2); Carbon Dioxide 28 mmol/L (22-32); Chloride 102 mmol/L (98-107); Cholesterol 109 mg/dL (140-199); Estimated Glomerular Filt Rate > 60.0 mL/min (>60); Globulin 2.7 g/dL (1.7-4.1); Glucose 211 mg/dL (70-100); HDL Cholesterol 37 mg/dL (40-60); HEMOLYSIS < 15 (0-50); LDL Cholesterol Calculated 44 mg/dL (<100); Potassium 4.5 mmol/L (3.4-5.1); Sodium 136 mmol/L (137-145); Total Protein 6.2 g/dL (6.3-8.2); Triglycerides 142 mg/dL (35-150)
[2021-07-11 05:55] LABS: CKMB % Relative Index 0.2 % (1.5-5.0); Creatine Kinase MB 2.86 ng/mL (<2.37)
[2021-07-11] MEDS: DEXAMETHASONE 10 MG/ML VIAL 6 MG IV (10:08)
[2021-07-11] MEDS: PANTOPRAZOLE DR 20 MG TABLET PO (10:08)
[2021-07-11] MEDS: AMLODIPINE 5 MG TABLET 10 MG PO (10:08)
[2021-07-11] MEDS: METOPROLOL ER 50 MG TABLET PO (10:09)
[2021-07-11] MEDS: LOSARTAN 50 MG TABLET PO (10:09)
--- NOTE | 2021-07-11 12:36 | PM.PN.1 ---
Subjective Subjective Date Patient Seen: 07/11/21 Time Patient Seen: 09:00 Interval history: She still feels short of breath. She is coughing when she tries to breath deeply. Exam Vital Signs (past 8 hours): - 07/11/21 04:45 07/11/21 05:00 07/11/21 05:15 Temperature Pulse Rate 88 95 H 98 H Respiratory Rate Blood Pressure Pulse Oximetry 94 94 95 07/11/21 05:18 07/11/21 05:30 07/11/21 05:45 Temperature Pulse Rate 98 H 106 H 102 H Respiratory Rate 22 Blood Pressure Pulse Oximetry 97 95 94 07/11/21 06:00 07/11/21 06:15 07/11/21 06:30 Temperature Pulse Rate 109 H 104 H 111 H Respiratory Rate Blood Pressure Pulse Oximetry 93 93 92 07/11/21 06:45 07/11/21 07:00 07/11/21 07:15 Temperature Pulse Rate 105 H 112 H 118 H Respiratory Rate Blood Pressure Pulse Oximetry 93 93 93 07/11/21 07:30 07/11/21 07:45 07/11/21 08:00 Temperature 98.4 F Pulse Rate 120 H 109 H 111 H Respiratory Rate 16 Blood Pressure 141/84 H Pulse Oximetry 94 95 91 07/11/21 08:01 07/11/21 10:00 Temperature Pulse Rate 117 H Respiratory Rate Blood Pressure Pulse Oximetry 93 Oxygen Delivery Method Nasal Cannula Oxygen Flow Rate 4 Narrative Exam Narrative: General:? no acute distress Lungs:? poor breath sounds bilaterally Cardio:?tachycardic, no murmurs ABD: soft, nontender, nondistended, normal bowel sounds Objective Labs Result Diagrams: 07/11/21 04:50 07/11/21 04:50 Labs: Laboratory Results - last 24 hr 07/10/21 07/10/21 07/10/21 20:30 20:30 20:30 WBC 6.1 RBC 4.25 Hgb 13.5 Hct 39.0 MCV 91.7 MCH 31.7 MCHC 34.6 RDW 13.3 Plt Count 292 Neut % (Auto) 79.9 H Lymph % (Auto) 13.8 L [place] % (Auto) 6.1 Eos % (Auto) 0.0 L Baso % (Auto) 0.2 Neut # (Auto) 4900 Lymph # (Auto) 800 L [place] # (Auto) 400 Eos # (Auto) 0 Baso # (Auto) 0 ESR D-Dimer 393 H Sodium Potassium Chloride Carbon Dioxide BUN Creatinine Estimated GFR BUN/Creatinine Ratio Glucose Lactate Calcium Magnesium Ferritin Total Bilirubin AST ALT Alkaline Phosphatase Lactate Dehydrogenase Total Creatine Kinase CK-MB (CK-2) CK-MB (CK-2) Rel Index Troponin I C-Reactive Protein NT-Pro-B Natriuret Pep Total Protein Albumin Globulin Albumin/Globulin Ratio Triglycerides Cholesterol LDL Cholesterol, Calc HDL Cholesterol Procalcitonin 0.15 Urine Color Urine Appearance Urine pH Ur Specific [place] Urine Protein Urine Glucose (UA) Urine Ketones Urine Occult Blood Urine Nitrate Urine Bilirubin Urine Urobilinogen Ur Leukocyte Esterase Urine RBC Urine WBC Ur Squamous Epith Cells Urine Bacteria Ur Culture Indicated? Chlamy pneumoniae PCR Adenovirus (PCR) B. pertussis DNA (PCR) B.parapertussis DNA PCR Coronavirus OC43 (PCR) Coronavirus HKU1 (PCR) Coronavirus 229E (PCR) SARS-CoV-2 (PCR) Coronavirus NL63 (PCR) Human Metapneumovir PCR Influenza Type A (PCR) Influenza Type B (PCR) M. pneumoniae (PCR) Parainfluenza 1 (PCR) Parainfluenza 2 (PCR) Parainfluenza 3 (PCR) Parainfluenza 4 (PCR) RSV (PCR) Entero/Rhino (PCR) 07/10/21 07/10/21 07/10/21 20:30 20:30 20:30 WBC RBC Hgb Hct MCV MCH MCHC RDW Plt Count Neut % (Auto) Lymph % (Auto) [place] % (Auto) Eos % (Auto) Baso % (Auto) Neut # (Auto) Lymph # (Auto) [place] # (Auto) Eos # (Auto) Baso # (Auto) ESR D-Dimer Sodium 134 L Potassium 3.3 L Chloride 96 L Carbon Dioxide 28 BUN 10 Creatinine 0.77 Estimated GFR > 60.0 BUN/Creatinine Ratio 13.0 Glucose 172 H Lactate 1.6 Calcium 8.8 Magnesium Ferritin 827 H Total Bilirubin 0.6 AST 122 H ALT 69 H Alkaline Phosphatase 81 Lactate Dehydrogenase 1886 H Total Creatine Kinase 1583 H CK-MB (CK-2) 3.63 H CK-MB (CK-2) Rel Index 0.2 L Troponin I < 0.012 C-Reactive Protein 4.1 H NT-Pro-B Natriuret Pep 53 Total Protein 7.2 Albumin 4.1 Globulin 3.1 Albumin/Globulin Ratio 1.3 Triglycerides Cholesterol LDL Cholesterol, Calc HDL Cholesterol Procalcitonin Urine Color Yellow Urine Appearance Clear Urine pH 6.0 Ur Specific [place] 1.015 Urine Protein 2+ H Urine Glucose (UA) Negative Urine Ketones Negative Urine Occult Blood 3+ H Urine Nitrate Negative Urine Bilirubin Negative Urine Urobilinogen 1.0 Ur Leukocyte Esterase Negative Urine RBC None seen Urine WBC 1-5/hpf Ur Squamous Epith Cells 1-5 /hpf Urine Bacteria None seen Ur Culture Indicated? Cult not indicated Chlamy pneumoniae PCR Adenovirus (PCR) B. pertussis DNA (PCR) B.parapertussis DNA PCR Coronavirus OC43 (PCR) Coronavirus HKU1 (PCR) Coronavirus 229E (PCR) SARS-CoV-2 (PCR) Coronavirus NL63 (PCR) Human Metapneumovir PCR Influenza Type A (PCR) Influenza Type B (PCR) M. pneumoniae (PCR) Parainfluenza 1 (PCR) Parainfluenza 2 (PCR) Parainfluenza 3 (PCR) Parainfluenza 4 (PCR) RSV (PCR) Entero/Rhino (PCR) 07/10/21 07/10/21 07/10/21 20:30 20:30 20:30 WBC RBC Hgb Hct MCV MCH MCHC RDW Plt Count Neut % (Auto) Lymph % (Auto) [place] % (Auto) Eos % (Auto) Baso % (Auto) Neut # (Auto) Lymph # (Auto) [place] # (Auto) Eos # (Auto) Baso # (Auto) ESR 43 H D-Dimer Sodium Potassium Chloride Carbon Dioxide BUN Creatinine Estimated GFR BUN/Creatinine Ratio Glucose Lactate Calcium Magnesium 2.2 Ferritin Total Bilirubin AST ALT Alkaline Phosphatase Lactate Dehydrogenase Total Creatine Kinase CK-MB (CK-2) CK-MB (CK-2) Rel Index Troponin I C-Reactive Protein NT-Pro-B Natriuret Pep Cancelled Total Protein Albumin Globulin Albumin/Globulin Ratio Triglycerides Cholesterol LDL Cholesterol, Calc HDL Cholesterol Procalcitonin Urine Color Urine Appearance Urine pH Ur Specific [place] Urine Protein Urine Glucose (UA) Urine Ketones Urine Occult Blood Urine Nitrate Urine Bilirubin Urine Urobilinogen Ur Leukocyte Esterase Urine RBC Urine WBC Ur Squamous Epith Cells Urine Bacteria Ur Culture Indicated? Chlamy pneumoniae PCR Adenovirus (PCR) B. pertussis DNA (PCR) B.parapertussis DNA PCR Coronavirus OC43 (PCR) Coronavirus HKU1 (PCR) Coronavirus 229E (PCR) SARS-CoV-2 (PCR) Coronavirus NL63 (PCR) Human Metapneumovir PCR Influenza Type A (PCR) Influenza Type B (PCR) M. pneumoniae (PCR) Parainfluenza 1 (PCR) Parainfluenza 2 (PCR) Parainfluenza 3 (PCR) Parainfluenza 4 (PCR) RSV (PCR) Entero/Rhino (PCR) 07/11/21 07/11/21 07/11/21 00:35 04:50 04:50 WBC 4.0 L RBC 3.99 L Hgb 12.6 Hct 36.4 MCV 91.1 MCH 31.6 MCHC 34.7 RDW 13.4 Plt Count 267 Neut % (Auto) 84.5 H Lymph % (Auto) 10.9 L [place] % (Auto) 4.0 Eos % (Auto) 0.0 L Baso % (Auto) 0.6 Neut # (Auto) 3400 Lymph # (Auto) 400 L [place] # (Auto) 200 Eos # (Auto) 0 Baso # (Auto) 0 ESR D-Dimer Sodium 136 L Potassium 4.5 D Chloride 102 Carbon Dioxide 28 BUN 7 Creatinine 0.54 Estimated GFR > 60.0 BUN/Creatinine Ratio 13.0 Glucose 211 H Lactate Calcium 8.3 L Magnesium Ferritin Total Bilirubin 0.4 AST 88 H ALT 59 H Alkaline Phosphatase 71 Lactate Dehydrogenase Total Creatine Kinase CK-MB (CK-2) CK-MB (CK-2) Rel Index Troponin I C-Reactive Protein NT-Pro-B Natriuret Pep Total Protein 6.2 L Albumin 3.5 Globulin 2.7 Albumin/Globulin Ratio 1.3 Triglycerides 142 Cholesterol 109 L LDL Cholesterol, Calc 44 HDL Cholesterol 37 L Procalcitonin Urine Color Urine Appearance Urine pH Ur Specific [place] Urine Protein Urine Glucose (UA) Urine Ketones Urine Occult Blood Urine Nitrate Urine Bilirubin Urine Urobilinogen Ur Leukocyte Esterase Urine RBC Urine WBC Ur Squamous Epith Cells Urine Bacteria Ur Culture Indicated? Chlamy pneumoniae PCR Not detected Adenovirus (PCR) Not detected B. pertussis DNA (PCR) Not detected B.parapertussis DNA PCR Not detected Coronavirus OC43 (PCR) Not detected Coronavirus HKU1 (PCR) Not detected Coronavirus 229E (PCR) Not detected SARS-CoV-2 (PCR) Detected H Coronavirus NL63 (PCR) Not detected Human Metapneumovir PCR Not detected Influenza Type A (PCR) Not detected Influenza Type B (PCR) Not detected M. pneumoniae (PCR) Not detected Parainfluenza 1 (PCR) Not detected Parainfluenza 2 (PCR) Not detected Parainfluenza 3 (PCR) Not detected Parainfluenza 4 (PCR) Not detected RSV (PCR) Not detected Entero/Rhino (PCR) Not detected 07/11/21 07/11/21 04:50 04:50 WBC RBC Hgb Hct MCV MCH MCHC RDW Plt Count Neut % (Auto) Lymph % (Auto) [place] % (Auto) Eos % (Auto) Baso % (Auto) Neut # (Auto) Lymph # (Auto) [place] # (Auto) Eos # (Auto) Baso # (Auto) ESR 37 H D-Dimer Sodium Potassium Chloride Carbon Dioxide BUN Creatinine Estimated GFR BUN/Creatinine Ratio Glucose Lactate Calcium Magnesium Ferritin Total Bilirubin AST ALT Alkaline Phosphatase Lactate Dehydrogenase 1570 H Total Creatine Kinase 1352 H CK-MB (CK-2) 2.86 H CK-MB (CK-2) Rel Index 0.2 L Troponin I C-Reactive Protein NT-Pro-B Natriuret Pep Total Protein Albumin Globulin Albumin/Globulin Ratio Triglycerides Cholesterol LDL Cholesterol, Calc HDL Cholesterol Procalcitonin Urine Color Urine Appearance Urine pH Ur Specific [place] Urine Protein Urine Glucose (UA) Urine Ketones Urine Occult Blood Urine Nitrate Urine Bilirubin Urine Urobilinogen Ur Leukocyte Esterase Urine RBC Urine WBC Ur Squamous Epith Cells Urine Bacteria Ur Culture Indicated? Chlamy pneumoniae PCR Adenovirus (PCR) B. pertussis DNA (PCR) B.parapertussis DNA PCR Coronavirus OC43 (PCR) Coronavirus HKU1 (PCR) Coronavirus 229E (PCR) SARS-CoV-2 (PCR) Coronavirus NL63 (PCR) Human Metapneumovir PCR Influenza Type A (PCR) Influenza Type B (PCR) M. pneumoniae (PCR) Parainfluenza 1 (PCR) Parainfluenza 2 (PCR) Parainfluenza 3 (PCR) Parainfluenza 4 (PCR) RSV (PCR) Entero/Rhino (PCR) [facility] Medical History Blurry vision Cardiomyopathy Chicken pox (1979) Essential hypertension Hayfever Hearing loss Left bundle branch block (LBBB) Ovarian cyst Premature heartbeats (2001) Varicose veins of both lower extremities Surgical History Anesthesia History of right salpingo-oophorectomy (05/02/09) Status post tonsillectomy and adenoidectomy (1979) Status post tubal ligation (05/02/09) Family History Father Age: 69 Hypertension Obesity Cardiomegaly Chronic obstructive pulmonary disease, unspecified COPD type Grandfather Heart disease Hypertension Stroke Heart attack Grandmother Diabetes mellitus Hypertension High cholesterol Cirrhosis, nonalcoholic Mother Age: 66 Hypertension Grandfather Heart disease Hypertension Stroke Grandmother Diabetes mellitus Mental health problem Kidney failure Dementia Sister Age: 41 Obesity Type 2 diabetes mellitus Family/Other No problems noted. Family/Other No problems noted. Family/Other Breast cancer Social History household members: spouse and children Smoking Status: Never smoker alcohol intake: never Assessment & Plan Assessment & Plan narrative: 1. Acute hypoxic respiratory failure secondary to COVID pneumonia, acute -chest x-ray demonstrated bilateral lobe infiltrates -CTA PE demonstrated no embolism, but found a prominent multifocal patchy and consolidative opacities within the lungs most suggestive of pneumonia. -patient given 10 of dexamethasone, 200 remdesivir-in ED -ordered for dexamethasone, remdesivir -albuterol HFA inhaler 2 puffs Q 4 hours as needed for cough or shortness of breath -Ativan for anxiety or agitation, melatonin for insomnia and sleep, hydrocodone-to mitigate pain to encourage frequent and prolonged proning. 2. Rhabdomyolysis, mild, acute, secondary hypokalemia, acute, present on admission -trend daily -stop IV fluids for now -hold statin 3. Essential hypertension in the setting of cardiomyopathy with a left bundle-branch block, acute on chronic, present on admission -patient to be monitored on telemedicine, continue patient's amlodipine, losartan, metoprolol. -consider echo if cardiac function worsens. 4. Overweight as evidence by BMI of 28, acute on chronic, present on admission -consideration will be given for dietary counseling Time Spent With Patient Critical Care time: I spent a total of [] minutes of critical care time on this patient's care today; this time is exclusive of procedural time.
[2021-07-11 12:54] LABS: HCO3 VBG 25 mmol/L (23-28); PO2 VBG 68 mmHg (35-45); Total CO2 VBG 26 mmol/L (24-29)
[2021-07-11 12:55] LABS: Oxygen Saturation VBG 95 % (70-75)
[2021-07-11] MEDS: ALBUTEROL 2.5 MG/3 ML NEB (ADULT) INH (13:55)
--- NOTE | 2021-07-11 15:21 | PC.NURSE ---
Patient c/o feeling SOB while 88% on 4L. Bumped O2 to 5L, HFNC. RT provided breathing treatment. Patient remains 90-92%. Patient HR remains 100's-110's, otherwise, VSS without drop in BP. MD aware. Tele discontinued per MD. Patient able to ambulate independently to the restroom. Denies dizziness or lightheadedness with ambulation. Saline locked. Denies further needs at this time. Call light in reach.
[2021-07-11] MEDS: REMDESIVIR 100 MG in SODIUM CHLORIDE 0.9% 230 ML 250 ML IV (21:41)
[2021-07-12] VITALS (11 sets, daily range): BP systolic 117–132; BP diastolic 61–81; PULSE 81–101; RESP 16–22; TEMP 36.6–37.1; O2SAT 85–97
[2021-07-12] MEDS: PANTOPRAZOLE DR 20 MG TABLET PO (06:41)
[2021-07-12 06:45] LABS: Add Manual Diff / Slide Review NO; Basophils Absolute Auto 0 /uL (0-100); Basophils Percent Auto 0.2 % (0-2); Eosinophils Absolute Auto 0 /uL (0-450); Hematocrit 34.7 % (36-46); Hemoglobin 11.9 g/dL (12.0-16.0); Lymphocytes Absolute Auto 600 /uL (1100-4500); Lymphocytes Percent Auto 10.6 % (25-40); Mean Corpuscular HGB Conc 34.4 % (30-36); Mean Corpuscular Hemoglobin 31.9 PG (26-34); Mean Corpuscular Volume 92.8 fL (80-100); Monocytes Absolute Auto 500 /uL (0-900); Monocytes Percent Auto 9.6 % (3-14); Neutrophils Absolute Auto 4200 /uL (1500-7000); Neutrophils Percent Auto 79.6 % (50-75); Platelet Count 326 X10^3/uL (150-400); Red Blood Cell Count 3.73 X10^6/uL (4.0-5.2); Red Cell Distribution Width 13.5 % (11.6-14.8); White Blood Cell Count 5.3 X10^3/uL (4.5-11.0)
[2021-07-12 06:56] LABS: Alanine Aminotransferase 51 IU/L (<35); Albumin 3.3 g/dL (3.5-5.0); Albumin Globulin Ratio 1.2 (1.0-2.8); Alkaline Phosphatase 63 U/L (38-126); Aspartate Aminotransferase 55 IU/L (14-36); BUN Creatinine Ratio 20.8 (6-22); Bilirubin Total 0.5 mg/dL (0.2-1.3); Blood Urea Nitrogen 11 mg/dL (7-17); Calcium 8.5 mg/dL (8.4-10.2); Carbon Dioxide 27 mmol/L (22-32); Chloride 106 mmol/L (98-107); Creatine Kinase 839 U/L (30-135); Estimated Glomerular Filt Rate > 60.0 mL/min (>60); Globulin 2.7 g/dL (1.7-4.1); Glucose 177 mg/dL (70-100); HEMOLYSIS < 15 (0-50); Potassium 3.6 mmol/L (3.4-5.1); Sodium 141 mmol/L (137-145)
[2021-07-12] MEDS: AMLODIPINE 5 MG TABLET 10 MG PO (08:59)
[2021-07-12] MEDS: DEXAMETHASONE 10 MG/ML VIAL 6 MG IV (08:59)
[2021-07-12] MEDS: METOPROLOL ER 50 MG TABLET PO (09:04)
[2021-07-12] MEDS: LOSARTAN 50 MG TABLET PO (09:04)
[2021-07-12] MEDS: HEPARIN 5,000 UNIT/ML VIAL 5000 UNIT SUBCUT ×2 (09:04→21:20)
[2021-07-12] MEDS: ALBUTEROL 2.5 MG/3 ML NEB (ADULT) INH (09:23)
--- NOTE | 2021-07-12 10:10 | PC.NURSE ---
Patient A/O x 3, resting in bed this morning, Course crackles noted in bilat bases. NC @ 4L reports she attempted to sit up for breakfast at the bedside but could not keep her O2 above 88%, bumped to 5L to keep her >90%. VSS. Called RT for treatment. In the meantime, patient ambulated to restroom, experiencing a persistent cough with ambulation. Up to chair was 75-79%, RT gave breathing treatment and left with HFNC @ 7L to maintain O2 >90%. Fifteen minutes later, patient is at 95%, denies feeling SOB. Dropped O2 to 5 L, maintained 93%, will continue to monitor. Patient in chair at this moment, encouraged to prone, patient verbalizes plans to do this. Denies further needs. Call light and belongings in reach. Patient encouraged to call if she becomes SOB getting back to bed.
--- NOTE | 2021-07-12 13:30 | P.PN_ITS ---
Subjective Subjective Date Patient Seen: 07/12/21 Time Patient Seen: 08:00 Interval history: She remains short of breath, and she is desaturating more with activity. Exam Vital Signs (past 8 hours): - 07/12/21 08:20 07/12/21 09:04 07/12/21 09:15 Temperature 98.6 F Pulse Rate 97 H 97 H Respiratory Rate 16 Blood Pressure 132/81 132/81 Pulse Oximetry 90 L 88 L 85 L 07/12/21 09:30 07/12/21 10:00 07/12/21 11:00 Temperature 97.9 F Pulse Rate 95 H Respiratory Rate 16 16 Blood Pressure 123/61 Pulse Oximetry 91 94 97 07/12/21 12:04 Temperature Pulse Rate Respiratory Rate Blood Pressure Pulse Oximetry 93 Oxygen Delivery Method High Flow Nasal Cannula Oxygen Flow Rate 4 Narrative Exam Narrative: General:? no acute distress Lungs:? poor breath sounds bilaterally Cardio:?tachycardic, no murmurs ABD: soft, nontender, nondistended, normal bowel sounds Objective Labs Result Diagrams: 07/12/21 05:50 07/12/21 05:50 Labs: Laboratory Results - last 24 hr 07/12/21 07/12/21 07/12/21 05:50 05:50 05:50 WBC 5.3 RBC 3.73 L Hgb 11.9 L Hct 34.7 L MCV 92.8 MCH 31.9 MCHC 34.4 RDW 13.5 Plt Count 326 Neut % (Auto) 79.6 H Lymph % (Auto) 10.6 L [place] % (Auto) 9.6 Eos % (Auto) 0.0 L Baso % (Auto) 0.2 Neut # (Auto) 4200 Lymph # (Auto) 600 L [place] # (Auto) 500 Eos # (Auto) 0 Baso # (Auto) 0 Sodium 141 Potassium 3.6 Chloride 106 Carbon Dioxide 27 BUN 11 Creatinine 0.53 Estimated GFR > 60.0 BUN/Creatinine Ratio 20.8 Glucose 177 H Calcium 8.5 Total Bilirubin 0.5 AST 55 H ALT 51 H Alkaline Phosphatase 63 Total Creatine Kinase 839 H Total Protein 6.0 L Albumin 3.3 L Globulin 2.7 Albumin/Globulin Ratio 1.2 PFSH Medical History Blurry vision Cardiomyopathy Chicken pox (1979) Essential hypertension Hayfever Hearing loss Left bundle branch block (LBBB) Ovarian cyst Premature heartbeats (2001) Varicose veins of both lower extremities Surgical History Anesthesia History of right salpingo-oophorectomy (05/02/09) Status post tonsillectomy and adenoidectomy (1979) Status post tubal ligation (05/02/09) Family History Father Age: 69 Hypertension Obesity Cardiomegaly Chronic obstructive pulmonary disease, unspecified COPD type Grandfather Heart disease Hypertension Stroke Heart attack Grandmother Diabetes mellitus Hypertension High cholesterol Cirrhosis, nonalcoholic Mother Age: 66 Hypertension Grandfather Heart disease Hypertension Stroke Grandmother Diabetes mellitus Mental health problem Kidney failure Dementia Sister Age: 41 Obesity Type 2 diabetes mellitus Family/Other No problems noted. Family/Other No problems noted. Family/Other Breast cancer Social History household members: spouse and children Smoking Status: Never smoker alcohol intake: never Assessment & Plan Assessment & Plan narrative: 1. Acute hypoxic respiratory failure secondary to COVID pneumonia, acute -chest x-ray demonstrated bilateral lobe infiltrates -CTA PE demonstrated no embolism, but found a prominent multifocal patchy and consolidative opacities within the lungs most suggestive of pneumonia. -patient given 10 of dexamethasone, 200 remdesivir-in ED -ordered for dexamethasone, remdesivir -albuterol HFA inhaler 2 puffs Q 4 hours as needed for cough or shortness of breath -Ativan for anxiety or agitation, melatonin for insomnia and sleep, hydrocodone- to mitigate pain to encourage frequent and prolonged proning. 2. Rhabdomyolysis, mild, acute, secondary hypokalemia, acute, present on admission, resolved -hold statin 3. Essential hypertension in the setting of cardiomyopathy with a left bundle- branch block, acute on chronic, present on admission -continue patient's amlodipine, losartan, metoprolol.. 4. Overweight as evidence by BMI of 28, acute on chronic, present on admission -consideration will be given for dietary counseling Time Spent With Patient Critical Care time: I spent a total of [] minutes of critical care time on this patient's care today; this time is exclusive of procedural time.
--- NOTE | 2021-07-12 13:48 | CM.DANOTE ---
Patient is a 46 yo female who was admitted on 07/10/21 for COVID+/SOB. Pt has [employer] for insurance and her PCP is Aurelia Barnes. EMR was reviewed. Per MD, pt unvaccinated and tested COVID+ on 06/26/21 along with a couple other family members and then pt's symptoms increased. Pt admitted for COVID+ pneumonia. Per RN, pt mostly independent in the room. Per RT, pt on [id number]. SW attempted to call pt on room phone due to COVID precautions but no answer and SW called pt's spouse Marcello and explained role and he confirms that they live at home in [place] with their 2 older children and 3 of them tested positive for COVID but their kids are now testing negative and no symptoms and feeling fine. Pt is active and independent at baseline and works and drives. SW discussed RT assessment closer to d/c to determine if home oxygen needed or if pt can wean to room air. Spouse does not anticipate any d/c needs and confirms he can transport home at d/c and spouse has been in contact with pt while she is admitted. No need for PT eval at this time. Plan: SW to follow closely to confirm safe plan of d/c home via spouse POV when medically stable and no identified barriers to discharge. JESUS ALBERTO Lam Discharge Planning/Care Management Advanced directive, confirm from FAMILY Start: 07/11/21 09:30 Freq: Q24H Status: Active Protocol: Document 07/11/21 09:30 LOYDA (Rec: 07/11/21 09:31 LOYDA [id number]) Advance Directive, confirm on record Time 09:31 Person contacted Patient Copy received No Document 07/12/21 09:30 LOYDA (Rec: 07/12/21 10:10 LOYDA [id number]) Advance Directive, confirm on record Time 09:31 Person contacted Patient Copy received No Time 09:30 Person contacted Patient Copy received No Advanced directive available on record No CM Discharge Assessment Start: 07/12/21 13:41 Freq: Status: Active Protocol: Document 07/12/21 13:43 BF (Rec: 07/12/21 13:47 BF [id number]) Discharge Planning Assessment Assigned [facility] JESUS ALBERTO Williamson DPOA/Assigned Designee Name informally spouse Marcello Contact Information [phone] Advance Directives? No Advance Directives on File No History Provided By Patient,Significant Other, Medical Record Has Patient been admitted in last 30 No days? Prior Living Arrangements House Household Members spouse,children Type of transporation used prior to Drives own vehicle admit Independent with ADL's Yes Is patient alert and oriented? Yes Caregiver for Another Yes: older kids at home Barriers to Discharge No Discharge Plan Home Community Services Oxygen Therapy Transportation Arrangement Spouse confirms he can transport Referrals Initiated Respiratory Therapy Additional Comment RT will assess if home oxygen needed at d/c Review Status In Process Please Provide Date Initial DC 07/12/21 Assessment Was Performed Next Review Type Continued Stay Review
[2021-07-12] MEDS: REMDESIVIR 100 MG in SODIUM CHLORIDE 0.9% 230 ML 250 ML IV (21:26)
[2021-07-13] VITALS (9 sets, daily range): BP systolic 113–144; BP diastolic 66–86; PULSE 77–97; RESP 16–18; TEMP 36.7–37.4; O2SAT 92–95
[2021-07-13] MEDS: LORazepam 0.5 MG TABLET PO ×2 (03:54→21:15)
[2021-07-13] MEDS: PANTOPRAZOLE DR 20 MG TABLET PO (06:46)
[2021-07-13 07:11] LABS: Add Manual Diff / Slide Review NO; Basophils Absolute Auto 100 /uL (0-100); Basophils Percent Auto 1.2 % (0-2); Eosinophils Absolute Auto 0 /uL (0-450); Hematocrit 37.1 % (36-46); Hemoglobin 12.7 g/dL (12.0-16.0); Lymphocytes Absolute Auto 800 /uL (1100-4500); Lymphocytes Percent Auto 12.9 % (25-40); Mean Corpuscular HGB Conc 34.3 % (30-36); Mean Corpuscular Hemoglobin 31.6 PG (26-34); Monocytes Absolute Auto 600 /uL (0-900); Monocytes Percent Auto 9.1 % (3-14); Neutrophils Absolute Auto 4800 /uL (1500-7000); Neutrophils Percent Auto 76.8 % (50-75); Platelet Count 407 X10^3/uL (150-400); Red Blood Cell Count 4.03 X10^6/uL (4.0-5.2); Red Cell Distribution Width 13.2 % (11.6-14.8); White Blood Cell Count 6.2 X10^3/uL (4.5-11.0)
[2021-07-13 07:33] LABS: BUN Creatinine Ratio 26.4 (6-22); Blood Urea Nitrogen 14 mg/dL (7-17); Calcium 8.5 mg/dL (8.4-10.2); Carbon Dioxide 27 mmol/L (22-32); Chloride 105 mmol/L (98-107); Estimated Glomerular Filt Rate > 60.0 mL/min (>60); Glucose 169 mg/dL (70-100); Potassium 4.2 mmol/L (3.4-5.1); Sodium 140 mmol/L (137-145)
[2021-07-13 07:34] LABS: HEMOLYSIS 56 (0-50)
[2021-07-13] MEDS: METOPROLOL ER 50 MG TABLET PO (09:10)
[2021-07-13] MEDS: AMLODIPINE 5 MG TABLET 10 MG PO (09:10)
[2021-07-13] MEDS: HEPARIN 5,000 UNIT/ML VIAL 5000 UNIT SUBCUT ×2 (09:11→21:13)
[2021-07-13] MEDS: LOSARTAN 50 MG TABLET PO (09:11)
[2021-07-13] MEDS: DEXAMETHASONE 10 MG/ML VIAL 6 MG IV (09:11)
--- NOTE | 2021-07-13 09:12 | PM.PN.1 ---
Subjective Subjective Date Patient Seen: 07/13/21 Time Patient Seen: 08:00 Interval history: She still is short of breath, still coughing. Her oxygen was in the high 80s on 4L. Increased to 5L Exam Vital Signs (past 8 hours): - 07/13/21 04:30 Temperature 98.1 F Pulse Rate 93 H Respiratory Rate 16 Blood Pressure 144/84 H Pulse Oximetry 92 Oxygen Delivery Method High Flow Nasal Cannula Oxygen Flow Rate 4 Narrative Exam Narrative: General:? no acute distress Lungs:? poor breath sounds bilaterally Cardio:?tachycardic, no murmurs ABD: soft, nontender, nondistended, normal bowel sounds Objective Labs Result Diagrams: 07/13/21 06:50 07/13/21 06:50 Labs: Laboratory Results - last 24 hr 07/13/21 07/13/21 06:50 06:50 WBC 6.2 RBC 4.03 Hgb 12.7 Hct 37.1 MCV 92.0 MCH 31.6 MCHC 34.3 RDW 13.2 Plt Count 407 H Neut % (Auto) 76.8 H Lymph % (Auto) 12.9 L [place] % (Auto) 9.1 Eos % (Auto) 0.0 L Baso % (Auto) 1.2 Neut # (Auto) 4800 Lymph # (Auto) 800 L [place] # (Auto) 600 Eos # (Auto) 0 Baso # (Auto) 100 Sodium 140 Potassium 4.2 Chloride 105 Carbon Dioxide 27 BUN 14 Creatinine 0.53 Estimated GFR > 60.0 BUN/Creatinine Ratio 26.4 H Glucose 169 H Calcium 8.5 PFSH Medical History Blurry vision Cardiomyopathy Chicken pox (1979) Essential hypertension Hayfever Hearing loss Left bundle branch block (LBBB) Ovarian cyst Premature heartbeats (2001) Varicose veins of both lower extremities Surgical History Anesthesia History of right salpingo-oophorectomy (05/02/09) Status post tonsillectomy and adenoidectomy (1979) Status post tubal ligation (05/02/09) Family History Father Age: 69 Hypertension Obesity Cardiomegaly Chronic obstructive pulmonary disease, unspecified COPD type Grandfather Heart disease Hypertension Stroke Heart attack Grandmother Diabetes mellitus Hypertension High cholesterol Cirrhosis, nonalcoholic Mother Age: 66 Hypertension Grandfather Heart disease Hypertension Stroke Grandmother Diabetes mellitus Mental health problem Kidney failure Dementia Sister Age: 41 Obesity Type 2 diabetes mellitus Family/Other No problems noted. Family/Other No problems noted. Family/Other Breast cancer Social History household members: spouse and children Smoking Status: Never smoker alcohol intake: never Assessment & Plan Assessment & Plan narrative: 1. Acute hypoxic respiratory failure secondary to COVID pneumonia, acute -chest x-ray demonstrated bilateral lobe infiltrates -CTA PE demonstrated no embolism, but found a prominent multifocal patchy and consolidative opacities within the lungs most suggestive of pneumonia. -patient given 10 of dexamethasone, 200 remdesivir-in ED -ordered for dexamethasone, remdesivir -albuterol HFA inhaler 2 puffs Q 4 hours as needed for cough or shortness of breath -Ativan for anxiety or agitation, melatonin for insomnia and sleep, hydrocodone-to mitigate pain to encourage frequent and prolonged proning. 2. Rhabdomyolysis, mild, acute, secondary hypokalemia, acute, present on admission, resolved -hold statin 3. Essential hypertension in the setting of cardiomyopathy with a left bundle-branch block, acute on chronic, present on admission -continue patient's amlodipine, losartan, metoprolol.. 4. Overweight as evidence by BMI of 28, acute on chronic, present on admission -consideration will be given for dietary counseling Time Spent With Patient Critical Care time: I spent a total of [] minutes of critical care time on this patient's care today; this time is exclusive of procedural time.
[2021-07-13] MEDS: ACETAMINOPHEN 325 MG TABLET 650 MG PO (21:14)
[2021-07-13] MEDS: SODIUM CHLORIDE 0.9% FLUSH 10 ML IV ×2 (21:14)
[2021-07-13] MEDS: MELATONIN 3 MG TABLET 6 MG PO (21:15)
[2021-07-13] MEDS: REMDESIVIR 100 MG in SODIUM CHLORIDE 0.9% 230 ML 250 ML IV (21:17)
[2021-07-14] VITALS (9 sets, daily range): BP systolic 110–140; BP diastolic 66–90; PULSE 79–96; RESP 14–20; TEMP 36.4–37.3; O2SAT 90–94
[2021-07-14 06:01] LABS: Add Manual Diff / Slide Review NO; Basophils Absolute Auto 0 /uL (0-100); Basophils Percent Auto 0.5 % (0-2); Eosinophils Absolute Auto 0 /uL (0-450); Hematocrit 39.1 % (36-46); Hemoglobin 13.5 g/dL (12.0-16.0); Lymphocytes Absolute Auto 1500 /uL (1100-4500); Lymphocytes Percent Auto 16.2 % (25-40); Mean Corpuscular HGB Conc 34.6 % (30-36); Mean Corpuscular Volume 92.4 fL (80-100); Monocytes Absolute Auto 700 /uL (0-900); Monocytes Percent Auto 7.5 % (3-14); Neutrophils Absolute Auto 6900 /uL (1500-7000); Neutrophils Percent Auto 75.8 % (50-75); Platelet Count 575 X10^3/uL (150-400); Red Blood Cell Count 4.23 X10^6/uL (4.0-5.2); Red Cell Distribution Width 13.4 % (11.6-14.8); White Blood Cell Count 9.1 X10^3/uL (4.5-11.0)
[2021-07-14] MEDS: PANTOPRAZOLE DR 20 MG TABLET PO (06:46)
[2021-07-14] MEDS: METOPROLOL ER 50 MG TABLET PO (09:21)
[2021-07-14] MEDS: HEPARIN 5,000 UNIT/ML VIAL 5000 UNIT SUBCUT ×2 (09:21→21:50)
[2021-07-14] MEDS: AMLODIPINE 5 MG TABLET 10 MG PO (09:21)
[2021-07-14] MEDS: LOSARTAN 50 MG TABLET PO (09:21)
[2021-07-14] MEDS: DEXAMETHASONE 10 MG/ML VIAL 6 MG IV (09:22)
[2021-07-14] MEDS: SODIUM CHLORIDE 0.9% FLUSH 10 ML IV ×2 (09:22→21:50)
--- NOTE | 2021-07-14 10:26 | PM.PN.1 ---
Subjective Subjective Date Patient Seen: 07/14/21 Time Patient Seen: 08:00 Interval history: She has had no significant changes in her symptoms. She remains short of breath, tired and coughing. Exam Vital Signs (past 8 hours): - 07/14/21 04:00 07/14/21 06:55 07/14/21 09:15 Temperature 98.9 F 99.1 F Pulse Rate 79 89 Respiratory Rate 20 18 Blood Pressure 140/90 118/75 Pulse Oximetry 91 93 92 07/14/21 09:21 07/14/21 10:11 Temperature Pulse Rate 93 H 91 H Respiratory Rate Blood Pressure 118/75 Pulse Oximetry Oxygen Delivery Method High Flow Nasal Cannula Oxygen Flow Rate 4 Narrative Exam Narrative: General:? no acute distress Lungs:? poor breath sounds bilaterally Cardio:?tachycardic, no murmurs ABD: soft, nontender, nondistended, normal bowel sounds Objective Labs Result Diagrams: 07/14/21 05:30 07/13/21 06:50 Labs: Laboratory Results - last 24 hr 07/11/21 07/14/21 12:27 05:30 WBC 9.1 RBC 4.23 Hgb 13.5 Hct 39.1 MCV 92.4 MCH 32.0 MCHC 34.6 RDW 13.4 Plt Count 575 H Neut % (Auto) 75.8 H Lymph % (Auto) 16.2 L [place] % (Auto) 7.5 Eos % (Auto) 0.0 L Baso % (Auto) 0.5 Neut # (Auto) 6900 Lymph # (Auto) 1500 [place] # (Auto) 700 Eos # (Auto) 0 Baso # (Auto) 0 VBG pH 7.50 H VBG pCO2 32.0 L VBG pO2 68 H VBG HCO3 25 VBG Total CO2 26 VBG O2 Saturation 95 H VBG Base Excess 2.0 PFSH Medical History Blurry vision Cardiomyopathy Chicken pox (1979) Essential hypertension Hayfever Hearing loss Left bundle branch block (LBBB) Ovarian cyst Premature heartbeats (2001) Varicose veins of both lower extremities Surgical History Anesthesia History of right salpingo-oophorectomy (05/02/09) Status post tonsillectomy and adenoidectomy (1979) Status post tubal ligation (05/02/09) Family History Father Age: 69 Hypertension Obesity Cardiomegaly Chronic obstructive pulmonary disease, unspecified COPD type Grandfather Heart disease Hypertension Stroke Heart attack Grandmother Diabetes mellitus Hypertension High cholesterol Cirrhosis, nonalcoholic Mother Age: 66 Hypertension Grandfather Heart disease Hypertension Stroke Grandmother Diabetes mellitus Mental health problem Kidney failure Dementia Sister Age: 41 Obesity Type 2 diabetes mellitus Family/Other No problems noted. Family/Other No problems noted. Family/Other Breast cancer Social History household members: spouse and children Smoking Status: Never smoker alcohol intake: never Assessment & Plan Assessment & Plan narrative: 1. Acute hypoxic respiratory failure secondary to COVID pneumonia, acute -chest x-ray demonstrated bilateral lobe infiltrates -CTA PE demonstrated no embolism, but found a prominent multifocal patchy and consolidative opacities within the lungs most suggestive of pneumonia. -patient given 10 of dexamethasone, 200 remdesivir-in ED -ordered for dexamethasone, remdesivir -albuterol HFA inhaler 2 puffs Q 4 hours as needed for cough or shortness of breath -Ativan for anxiety or agitation, melatonin for insomnia and sleep, hydrocodone-to mitigate pain to encourage frequent and prolonged proning. 2. Rhabdomyolysis, mild, acute, secondary hypokalemia, acute, present on admission, resolved -hold statin 3. Essential hypertension in the setting of cardiomyopathy with a left bundle-branch block, acute on chronic, present on admission -continue patient's amlodipine, losartan, metoprolol.. 4. Overweight as evidence by BMI of 28, acute on chronic, present on admission -consideration will be given for dietary counseling Time Spent With Patient Critical Care time: I spent a total of [] minutes of critical care time on this patient's care today; this time is exclusive of procedural time.
--- NOTE | 2021-07-14 10:52 | CM.DPNOTE ---
DCP Note Patient discussed in multidisciplinary rounds this morning. Medical management continues for acute resp. failure. Patient remains on O2; SOB, coughing, lethargic CM team will continue to follow closely as medical plan of care unfolds. Likely home w/family once O2 can be tapered down, possibly need for home w/ O2 JW
--- NOTE | 2021-07-14 13:00 | PC.NURSE ---
Day shift: Pt now has in her room a large hunting bag that her spouse dropped of at the ED today. This health science writer has not looked in bag. Bag place at window seat in room at approx 1245 today.
[2021-07-14] MEDS: REMDESIVIR 100 MG in SODIUM CHLORIDE 0.9% 230 ML 250 ML IV (21:50)
[2021-07-14] MEDS: LORazepam 0.5 MG TABLET PO (23:23)
[2021-07-14] MEDS: MELATONIN 3 MG TABLET 6 MG PO (23:23)
[2021-07-14] MEDS: ACETAMINOPHEN 325 MG TABLET 650 MG PO (23:34)
--- NOTE | 2021-07-15 04:39 | PC.NURSE ---
Addendum entered by Annelise Maldonado R.N. 07/15/21 06:56: Provider was notified of weight change, no orders given at this time Addendum entered by Annelise Maldonado R.N. 07/15/21 06:45: Pt had a weight difference of -5.6kg this shift after the bed was zero'd. Provider JUAN Schreiber, and charge accounts audit clerk are in another room and this RN is not able to notify at this time. Will notify oncoming RN and provider when available. Original Note: Pts right dorsal hand was flushed around 2100, however there was lots of resistance and the patient complained of pain, IV line was inspected and looked to be okay, this RN pulled back on the catheter to reposition but patient still complained of pain when trying to flush, this RN removed the IV at 2155. Patient has been resting in bed. VSS and O2 saturation is improving while at rest. When up to the bathroom, O2 decreases to 88% but patient quickly recovers to 93% once back in bed.
[2021-07-15 05:26] VITALS: BP 120/71; PULSE 82; RESP 17; TEMP 36.7; O2SAT 96
[2021-07-15] MEDS: PANTOPRAZOLE DR 20 MG TABLET PO (06:08)
[2021-07-15] MEDS: DEXAMETHASONE 10 MG/ML VIAL 6 MG IV (07:51)
[2021-07-15] MEDS: HEPARIN 5,000 UNIT/ML VIAL 5000 UNIT SUBCUT (07:51)
[2021-07-15] MEDS: AMLODIPINE 5 MG TABLET 10 MG PO (07:53)
[2021-07-15] MEDS: LOSARTAN 50 MG TABLET PO (07:53)
[2021-07-15] MEDS: METOPROLOL ER 50 MG TABLET PO (07:53)
[2021-07-15] MEDS: SODIUM CHLORIDE 0.9% FLUSH 10 ML IV (07:54)
[2021-07-15 08:16] VITALS: BP 122/74; PULSE 81; RESP 18; TEMP 36.6; O2SAT 97
[2021-07-15 08:36] VITALS: O2SAT 97
[2021-07-15 10:30] VITALS: PULSE 86
[2021-07-15 12:49] VITALS: BP 122/73; PULSE 88; RESP 17; TEMP 37.3; O2SAT 92
[2021-07-15] MEDS: ACETAMINOPHEN 325 MG TABLET 650 MG PO (14:42)
[2021-07-15 15:36] VITALS: O2SAT 92
--- NOTE | 2021-07-15 16:26 | P.DS_ITS ---
History of Present Illness History of Present Illness Date Patient Seen: 07/15/21 Chief complaint: Covid +, SOB Narrative: Patient is a 46-year-old female Angie Wang with a medical history of hypertension, cardiomyopathy and left bundle-branch block who presented to the ED today with decreasing O2 saturations on home monitoring less than 90% on room air.? Patient is unvaccinated for COVID-19 and she in 2 of her children at home tested positive on the with an at home test.? She proceeded to monitor her pulse oxygenation rates at home and noted that they started decreasing today.? When patient presented to the ED she was satting in the low 80s on room air, she was also slightly tachycardic and tachypneic.? The patient currently denies chest pain, shortness of breath, she states she does have some lost of taste she denies a fever body aches or chills, cough, nausea, vomiting, abdominal pain, diarrhea, blood in her urine or stool, denies recent injury illness or trauma.? Patient denies any further cardiac history or respiratory history.? Patient's director prospect is Dr. De Los Santos. Upon admit patient's temp 97.9?, BP 115/70, HR 105, R 20, O2 saturation 94% on 5 L nasal cannula.? Patient's chemistries demonstrated a sodium 134, chloride 96, hypokalemia 3.3, glucose 172, patient's AST 122, ALT 69, procalcitonin WNL, urine WNL troponin 1. WNL.? Patient's chest x-ray demonstrated early developing bilateral lower lobe infiltrates suggestive of pneumonia with prominent bilateral hilar lymph nodes was negative for pleural effusions.? Patient demonstrates mild rhabdomyolysis, ESR 43, CRP 4.1, also patient's CK-MB 3.63, lactate dehy 1886, lactate was normal 1.6, ferritin 827. D-Dimer was elevated at 393- CTA PE demonstrated no embolism, but found a prominent multifocal patchy and consolidative opacities within the lungs most suggestive of pneumonia.? Patient admitted for acute hypoxic respiratory failure secondary to COVID pneumonia, rhabdomyolysis with hypokalemia. Discharge Providers Provider Date of admission: 07/10/21 22:14 Discharge Date: 07/15/21 Primary care physician: Aurelia Barnes PA-C Consults: 07/10/21 22:48 Consult to Respiratory Therapy Evaluate & Treat Comment: ARF Covid pneumonia Physician Instructions: Evaluate and treat 07/15/21 10:44 Consult to Respiratory Therapy Evaluate & Treat Comment: Check to see if home 02 needed Physician Instructions: Evaluate and treat Discharge provider: Namita Crowell MD Summary Hospital Course Discharge Diagnosis: 1. Acute hypoxic respiratory failure secondary to COVID pneumonia 2. Cardiomyopathy 3. Hypertension Hospital Course: Patient was admitted to the hospital and treated for COVID pneumonia. She initially was on 5 L of oxygen. She was able to be tapered down to 2 L at rest and 4 L with activity. The patient received 5 days of IV Decadron and remdesivir. She was also found to be in rhabdo. She was given IV hydration for that. That improved. Blood pressure was well controlled. Patient made slow but steady progress and was deemed appropriate for discharge home. On the day of discharge she had a home O2 eval. The patient was felt to need 2 L at rest and 4 L with activity. As the patient remains on oxygen she will be discharged home on 5 days of Decadron. She will need to follow-up with her primary care provider as an outpatient for further evaluation. Patient is aware and understands and be discharged home accordingly. Status at Discharge Cognitive/behavioral status at discharge: oriented Functional status at discharge: independent ambulation Overall status at discharge: patient is progressing back to baseline Exam Vital Signs (past 8 hours): - 07/15/21 08:36 07/15/21 10:30 07/15/21 12:49 Temperature 99.2 F Pulse Rate 86 88 Respiratory Rate 17 Blood Pressure 122/73 Pulse Oximetry 97 92 07/15/21 15:36 Temperature Pulse Rate Respiratory Rate Blood Pressure Pulse Oximetry 92 Oxygen Delivery Method Nasal Cannula Oxygen Flow Rate 2 Narrative Exam Narrative: Pleasant female resting comfortably in no obvious distress Resp Other: Lungs decreased breath sounds with occasional scattered crackles Cardio Other: Cardiac exam: Regular rate rhythm normal S1-S2 GI Other: Abdomen: Soft nontender nondistended Extrem Other: Extremities: No edema Objective Labs Result Diagrams: 07/14/21 05:30 07/13/21 06:50 [facility] Medical History Blurry vision Cardiomyopathy Chicken pox (1979) Essential hypertension Hayfever Hearing loss Left bundle branch block (LBBB) Ovarian cyst Premature heartbeats (2001) Varicose veins of both lower extremities Surgical History (Reviewed 07/11/21 @ 00:49 by [facility] Anesthesia History of right salpingo-oophorectomy (05/02/09) Status post tonsillectomy and adenoidectomy (1979) Status post tubal ligation (05/02/09) Family History (Reviewed 07/11/21 @ 00:49 by [facility] Father Age: 69 Hypertension Obesity Cardiomegaly Chronic obstructive pulmonary disease, unspecified COPD type Grandfather Heart disease Hypertension Stroke Heart attack Grandmother Diabetes mellitus Hypertension High cholesterol Cirrhosis, nonalcoholic Mother Age: 66 Hypertension Grandfather Heart disease Hypertension Stroke Grandmother Diabetes mellitus Mental health problem Kidney failure Dementia Sister Age: 41 Obesity Type 2 diabetes mellitus Family/Other No problems noted. Family/Other No problems noted. Family/Other Breast cancer Social History household members: spouse and children Smoking Status: Never smoker alcohol intake: never Discharge Assessment & Plan Assessment and Plan Assessment: 1. Acute hypoxic respiratory failure secondary to COVID pneumonia 2. Hypertension 3. Cardiomyopathy 4. Hyperlipidemia Plan of Treatment: Discharge home on 2 L of oxygen at rest, 4 L of oxygen with activity Discharge on Decadron 6 mg daily for 5 days Follow-up with PCP as an outpatient in 1-2 weeks Discharge Plan Discharge Plan Patient Disposition: Home Discharge orders & Medications Prescriptions: New dexamethasone [Decadron] 6 mg tablet 6 mg PO DAILY Qty: 5 0RF Continued montelukast [Singulair] 10 mg tablet 10 mg PO DAILY 0RF omeprazole 20 mg tablet,delayed release (DR/EC) 20 mg PO DAILY 0RF metoprolol succinate 50 mg capsule,sprinkle,ER 24hr 50 mg PO DAILY 0RF Label Comments: pt unsure if its 50 or 75 mg amlodipine 10 mg tablet 10 mg PO DAILY 0RF losartan 50 mg tablet 50 mg PO DAILY 0RF rosuvastatin 5 mg tablet 5 mg PO BEDTIME 0RF Rx Instructions: 07/10/21: pt has not started yet. nebivolol 10 mg tablet 10 mg PO DAILY 0RF Rx Instructions: 07/10/21: pt has not started yet. Discontinued doxycycline hyclate 50 mg capsule 50 mg PO DAILY 0RF Follow up/Referrals: Aurelia Barnes PA-C [Primary Care Provider] - Discharge Health Status Multidrug resistant organism: No MDRO Diet/Activity/Treatments Diet: Diet as Tolerated, Low-sodium and Low-cholesterol Visit Report/Discharge Packet Instructions: DI for COVID-19 (Suspected or Confirmed ) Discharge Data Primary Care Provider: Aurelia Barnes
--- NOTE | 2021-07-15 17:18 | PC.NURSE ---
Day shift: Paperwork signed and all questions answered. Pt has all personal belongings. Encouraged to f/u w/ PCP tomorrow and to get vaccinated when she is recovered from COVID. Also encouraged to follow isolation precautions per d/c paperwork. Will be taken to car via WC. Her spouse is picking her up at ED entrance.
--- NOTE | 2021-07-15 17:59 | PC.NURSE ---
Day shift: Left unit at approx 1755.
== END 2021-07-15 17:59 | disposition home or self-care (01) | DRG 177 ==
LOC: ED 21:56 → AC 22:15
PROVIDERS: Internal Medicine; Admitting Provider Nurse Practitioner Family; Emergency Provider Emergency Medicine; PCP Physician Assistant; Referring Provider Emergency Medicine; Visit Provider Nurse Practitioner Family
DX: U07.1 COVID-19 (principal); J12.82 Pneumonia due to coronavirus disease 2019; J96.01 Acute respiratory failure with hypoxia; M62.82 Rhabdomyolysis; I42.9 Cardiomyopathy, unspecified; E87.6 Hypokalemia; I10 Essential (primary) hypertension; I44.7 Left bundle-branch block, unspecified; E78.5 Hyperlipidemia, unspecified
CPT/HCPCS: 36415; 71045; 71275; 80048; 80053; 80061; 81001; 82550; 82553; 82728; 82805; 82962; 83605; 83615; 83735; 83880; 84145; 84484; 85025; 85379; 85651; 86140; 87040; 87633; 93005; 93010; 94618; 94640; 94762; 96361; 96365; 96366; 96367; 96375; 99285; A9270; J1100; J1644; J7613; Q9967

== ENCOUNTER → 2021-09-05 10:27 | Outpatient (CLI) | payer BC, OTHER, SELFPAY ==
[2021-07-11 09:12] VITALS: BMI 29.7
[2021-09-05 11:24] LABS: Add Manual Diff / Slide Review NO; Basophils Absolute Auto 0 /uL (0-100); Basophils Percent Auto 0.3 % (0-2); Eosinophils Absolute Auto 100 /uL (0-450); Eosinophils Percent Auto 1.8 % (2-4); Hematocrit 36.5 % (36-46); Hemoglobin 12.8 g/dL (12.0-16.0); Lymphocytes Absolute Auto 1700 /uL (1100-4500); Lymphocytes Percent Auto 27.1 % (25-40); Mean Corpuscular HGB Conc 35.1 % (30-36); Mean Corpuscular Hemoglobin 32.9 PG (26-34); Mean Corpuscular Volume 93.7 fL (80-100); Monocytes Absolute Auto 300 /uL (0-900); Monocytes Percent Auto 4.5 % (3-14); Neutrophils Absolute Auto 4200 /uL (1500-7000); Neutrophils Percent Auto 66.3 % (50-75); Platelet Count 334 X10^3/uL (150-400); White Blood Cell Count 6.3 X10^3/uL (4.5-11.0)
[2021-09-05 13:24] LABS: HEMOLYSIS < 15 (0-50); Iron 118 ug/dL (37-170)
[2021-09-05 13:34] LABS: Percent Iron Saturation 37 % (15-50); Total Iron Binding Capacity 315 ug/dL (265-497); Transferrin 250 mg/dL (206-381)
[2021-09-05 13:38] LABS: Free T4, Direct Thyroxine 1.19 ng/dL (0.78-2.19)
[2021-09-05 13:52] LABS: Thyroid Stimulating Hormone 1.28 uIU/mL (0.47-4.68)
[2021-09-11 16:36] LABS: Percent Free Testosterone 1.65 % (0.50-2.80); Testosterone Total 18.4 ng/dL (.)
== END ==
PROVIDERS: Referring Provider Obstetrics & Gynecology; Visit Provider Obstetrics & Gynecology
DX: L65.9 Nonscarring hair loss, unspecified (principal)
CPT/HCPCS: 36415; 83540; 83550; 84402; 84403; 84439; 84443; 85025

== ENCOUNTER → 2021-09-13 14:04 | Outpatient (CLI) | payer BC, OTHER, SELFPAY ==
[2021-07-11 09:12] VITALS: BMI 29.7
--- NOTE | 2021-09-13 | DI.MG.S_ITS ---
BILATERAL DIGITAL SCREENING MAMMOGRAM 3D/2D WITH CAD: 09/13/2021 CLINICAL: Routine screening. Family history of breast cancer. Comparison is made to exams dated: 01/30/2021 mammogram, 07/06/2020 mammogram, and 07/26/2019 mammogram - [facility]. There are scattered fibroglandular elements in both breasts. Current study was also evaluated with a Computer Aided Detection (CAD) system. There are biopsy clips in the left breast. No significant masses, calcifications, or other findings are seen in either breast. There has been no significant interval change. IMPRESSION: NEGATIVE There is no mammographic evidence of malignancy. A 1 year screening mammogram is recommended. This exam was interpreted at Station ID: [id number]. NOTE: For mammograms, a report in lay terms will be sent to the patient. Approximately 15% of breast malignancies will not be visualized mammographically. In the management of a palpable breast mass, a negative mammogram must not discourage biopsy of a clinically suspicious lesion. Electronically Signed By: Fuad galeas/elmer:09/13/2021 15:29:11 letter sent: Normal Exam ACR BI-RADS Category 1: Negative 3341F
== END ==
PROVIDERS: PCP Physician Assistant; Referring Provider Physician Assistant; Visit Provider Obstetrics & Gynecology
DX: Z12.31 Encounter for screening mammogram for malignant neoplasm of breast (principal); Z80.3 Family history of malignant neoplasm of breast
CPT/HCPCS: 77063; 77067

== ENCOUNTER → 2021-10-02 07:38 | Outpatient (CLI) | payer BC, OTHER, SELFPAY ==
[2021-07-11 09:12] VITALS: BMI 29.7
--- NOTE | 2021-10-02 | DI.ECHO.S_ITS ---
[facility]---------+ [facility] +---------+ : : [address] : : : : [id number] : : : : Phone: [phone]+ Echocardiogram Report + + :Name: SAILAJA EDOUARD Study Date: 10/02/2021 Height: 67 in : :[facility] ReadingLocation: Weight: 190 lb : : Gender: Female BSA: 2.0 m2 : :: 1975 Age: 46 yrs BP: 146/88 mmHg: :Reason For Study: CARDIOMYOPATHY : :Ordering Physician: RUI, : :RACHEL Performed By: Tomasa Roper : :Referring: RACHEL DE LOS SANTOS : + + Interpretation Summary 1) Normal left ventricular thickness and size with low normal systolic function (EF about 55%). 2) Normal right ventricular size and function. 3) No significant valvular abnormalities. 4) Compared to the Echo done 12/30/2019, no significant change. Procedure: A two-dimensional transthoracic echocardiogram with color flow and Doppler was performed. The study quality was technically adequate. Comparison is made with the echocardiogram of 12/30/2019. The patient was in sinus rhythm with heart rates between 69-75 bpm during the exam. Left Ventricle: The left ventricle is normal in size and wall thickness. Left ventricular ejection fraction is estimated to be 55 +/- 5%. There are no focal wall motion abnormalities. Right Ventricle: The right ventricle is normal in size and function. Atria: The left atrial size is normal. Right atrial size is normal. There is no Doppler evidence for an interatrial shunt. Mitral Valve: The mitral valve is normal in structure and function. There is trace mitral regurgitation. Aortic Valve: The aortic valve is trileaflet. The aortic valve opens well. There is no aortic valve stenosis. No aortic regurgitation is present. Tricuspid Valve: The tricuspid valve is normal in structure and function. There is trace tricuspid regurgitation. Pulmonic Valve: The pulmonic valve leaflets are thin and pliable; valve motion is normal. There is mild pulmonic regurgitation. Great Vessels: The aortic root is normal size. The dimensions of the ascending aorta are normal. The IVC is of normal diameter and collapses greater than 50% with a sniff. This suggests a low right atrial pressure of 3 mm Hg. Pericardium/ Pleura There is no pericardial effusion. There is no pleural effusion. MMode/2D Measurements & Calculations LVIDd: 5.3 cm LVOT diam: 2.3 cm LVIDs: 3.6 cm Ao root diam: 3.2 cm FS: 31.9 % asc Aorta Diam: 3.0 cm IVSd: 0.84 cm Ao Arch Diam (Prox Trans): 2.9 cm LVPWd: 0.78 cm LV morton. diameter/BSA (cm/m^2): 2.7 LV sys. diameter/BSA (cm/m^2): 1.8 LA A2 area: 22.7 cm2 RA long axis: 4.4 cm LA A4 area: 17.2 cm2 RA area: 13.3 cm2 LA length (vol): 5.2 cm RA vol: 34.2 ml LA vol: 63.3 ml RA : 17.3 ml/m2 LA vol index: 32.0 ml/m2 IVC diam: 1.5 cm RVD1 (basal): 2.6 cm TAPSE: 1.8 cm Doppler Measurements & Calculations Ao V2 max: 120.3 cm/sec LVOT Max Michael: 78.4 cm/sec Ao V2 mean: 82.5 cm/sec LV V1 max P.5 mmHg Ao max P.8 mmHg LV V1 VTI: 17.8 cm Ao mean P.1 mmHg ANCA(I,D): 2.7 cm2 Ao V2 VTI: 27.9 cm ANCA(V,D): 2.8 cm2 sev ratio: 0.64 ANCA indexed to BSA (cm^2/m^2): 1.4 MV E max michael: 67.9 cm/sec PA V2 max: 88.2 cm/sec MV A max michael: 71.9 cm/sec PA V2 mean: 59.1 cm/sec MV E/A: 0.94 PA mean P.6 mmHg Med Peak E' Michael: 6.8 cm/sec PA pr(Accel): 27.6 mmHg E/E' med: 10.0 Lat Peak E' Michael: 11.2 cm/sec E/E' lat: 6.1 E/e' average: 8.0 MV dec time: 0.17 sec SV(LVOT): 76.5 ml Reading Physician:06:49 PM
== END ==
PROVIDERS: Referring Provider Internal Medicine Cardiovascular Disease; Visit Provider Internal Medicine Cardiovascular Disease
DX: I37.1 Nonrheumatic pulmonary valve insufficiency (principal); I42.9 Cardiomyopathy, unspecified
CPT/HCPCS: 93306

== ENCOUNTER → 2021-12-26 07:34 | Outpatient (CLI) | payer BC, OTHER, SELFPAY ==
[2021-07-11 09:12] VITALS: BMI 29.7
--- NOTE | 2021-12-26 07:40 | DI.RAD.S_ITS ---
PROCEDURE: XR CHEST 2V INDICATIONS: CHEST PAIN TECHNIQUE: 2 views of the chest were acquired. COMPARISON: [facility], CR, XR CHEST 1V, 07/10/2021, 20:41. FINDINGS: Surgical changes and devices: None. Lungs and pleura: Lungs are clear. No pleural effusions or pneumothorax. Mediastinum: Mediastinal contours are normal. Heart size is normal. Bones and chest wall: No suspicious bony abnormalities. Soft tissues appear unremarkable. IMPRESSION: No acute cardiopulmonary findings. Dictated by: Suellen Fontenot M.D. on 12/26/2021 at 9:14 Approved by: Suellen Fontenot M.D. on 12/26/2021 at 9:14
[2021-12-26 09:00] LABS: Add Manual Diff / Slide Review NO; Basophils Absolute Auto 100 /uL (0-100); Basophils Percent Auto 1.2 % (0-2); Eosinophils Absolute Auto 200 /uL (0-450); Eosinophils Percent Auto 3.3 % (2-4); Hematocrit 36.9 % (36-46); Hemoglobin 12.9 g/dL (12.0-16.0); Lymphocytes Absolute Auto 1700 /uL (1100-4500); Lymphocytes Percent Auto 25.5 % (25-40); Mean Corpuscular Hemoglobin 31.5 PG (26-34); Monocytes Absolute Auto 300 /uL (0-900); Monocytes Percent Auto 5.2 % (3-14); Neutrophils Absolute Auto 4400 /uL (1500-7000); Neutrophils Percent Auto 64.8 % (50-75); Platelet Count 294 X10^3/uL (150-400); Red Cell Distribution Width 12.9 % (11.6-14.8); White Blood Cell Count 6.7 X10^3/uL (4.5-11.0)
[2021-12-26 09:26] LABS: Iron 93 ug/dL (37-170)
[2021-12-26 09:31] LABS: Alanine Aminotransferase 38 IU/L (<35); Albumin 4.6 g/dL (3.5-5.0); Albumin Globulin Ratio 1.8 (1.0-2.8); Alkaline Phosphatase 82 U/L (38-126); Aspartate Aminotransferase 46 IU/L (14-36); BUN Creatinine Ratio 14.3 (6-22); Bilirubin Total 0.4 mg/dL (0.2-1.3); Blood Urea Nitrogen 10 mg/dL (7-17); C-Reactive Protein Quant 0.6 mg/dL (<1.0); Calcium 9.4 mg/dL (8.4-10.2); Carbon Dioxide 24 mmol/L (22-32); Chloride 103 mmol/L (98-107); Estimated Glomerular Filt Rate > 60 mL/min (>60); Globulin 2.6 g/dL (1.7-4.1); Glucose 110 mg/dL (70-100); HEMOLYSIS < 15 (0-50); Potassium 4.3 mmol/L (3.4-5.1); Sodium 138 mmol/L (137-145); Total Protein 7.2 g/dL (6.3-8.2)
[2021-12-26 09:36] LABS: Percent Iron Saturation 30 % (15-50); Total Iron Binding Capacity 310 ug/dL (265-497)
[2021-12-26 09:45] LABS: Erythrocyte Sedimentation Rate 11 MM/HR (0-20)
[2021-12-26 10:16] LABS: Vitamin B12 517 pg/mL (239-931)
== END ==
PROVIDERS: PCP Nurse Practitioner; Referring Provider Nurse Practitioner; Visit Provider Nurse Practitioner
DX: R07.9 Chest pain, unspecified (principal); R53.83 Other fatigue; R20.2 Paresthesia of skin; R25.2 Cramp and spasm
CPT/HCPCS: 36415; 71046; 80053; 82607; 83540; 83550; 85025; 85651; 86140

== ENCOUNTER → 2022-03-15 07:07 | Outpatient (CLI) | payer BC, OTHER, SELFPAY ==
[2021-07-11 09:12] VITALS: BMI 29.7
[2022-03-15 09:23] LABS: Add Manual Diff / Slide Review NO; Basophils Absolute Auto 100 /uL (0-100); Basophils Percent Auto 1.2 % (0-2); Eosinophils Absolute Auto 100 /uL (0-450); Eosinophils Percent Auto 2.4 % (2-4); Hematocrit 37.4 % (36-46); Lymphocytes Absolute Auto 1400 /uL (1100-4500); Lymphocytes Percent Auto 26.2 % (25-40); Mean Corpuscular HGB Conc 34.8 % (30-36); Mean Corpuscular Hemoglobin 31.2 PG (26-34); Mean Corpuscular Volume 89.6 fL (80-100); Monocytes Absolute Auto 400 /uL (0-900); Neutrophils Absolute Auto 3500 /uL (1500-7000); Neutrophils Percent Auto 63.2 % (50-75); Platelet Count 280 X10^3/uL (150-400); Red Blood Cell Count 4.17 X10^6/uL (4.0-5.2); Red Cell Distribution Width 12.6 % (11.6-14.8); White Blood Cell Count 5.5 X10^3/uL (4.5-11.0)
[2022-03-15 09:30] LABS: BUN Creatinine Ratio 16.7 (6-22); Blood Urea Nitrogen 13 mg/dL (7-17); Carbon Dioxide 25 mmol/L (22-32); Chloride 105 mmol/L (98-107); Cholesterol 172 mg/dL (140-199); Estimated Glomerular Filt Rate > 60 mL/min (>60); Glucose 102 mg/dL (70-100); HDL Cholesterol 43 mg/dL (40-60); HEMOLYSIS < 15 (0-50); LDL Cholesterol Calculated 101 mg/dL (<100); Sodium 138 mmol/L (137-145); Triglycerides 139 mg/dL (35-150)
== END ==
PROVIDERS: PCP Nurse Practitioner; Referring Provider Internal Medicine Cardiovascular Disease; Visit Provider Internal Medicine Cardiovascular Disease
DX: E78.5 Hyperlipidemia, unspecified (principal); I10 Essential (primary) hypertension
CPT/HCPCS: 36415; 80048; 80061; 85025

== ENCOUNTER → 2022-04-03 08:34 | Outpatient (CLI) | payer BC, OTHER, SELFPAY ==
[2021-07-11 09:12] VITALS: BMI 29.7
--- NOTE | 2022-04-03 08:36 | DI.CT.S_ITS ---
PROCEDURE: CT ANGIO NECK INDICATIONS: Dissection of carotid artery TECHNIQUE: After the administration of intravenous contrast, 1.5 mm axial sections acquired from the aortic arch to the [place]. Maximum intensity projection (MIP) reformats were then performed. COMPARISON: None. FINDINGS: Image quality: Excellent. Carotid system: The great vessels demonstrate a conventional anatomy as they arise from the aortic arch. The origins of the common carotid arteries appear patent. In this patient with this given history, scrutiny is given to the right common carotid artery. The right common carotid artery demonstrates a normal appearance, without narrowing, calcification or a dissection flap. The left common carotid artery likewise is unremarkable. The bifurcation regions appear normal bilaterally. The internal carotid arteries demonstrate normal caliber and course. Posterior circulation: The origins of the vertebral arteries appear patent. Incidental note is made of a direct origin of the left vertebral artery from the aortic arch, which is considered to be a normal developmental variant of no clinical consequence. The more superior portions of the vertebral arteries demonstrate normal course and caliber. They join to form a normal appearing basilar artery. Soft tissues: Visualized neck soft tissues demonstrate no suspicious abnormalities. Thyroid gland demonstrates no significant abnormality . Bones: No suspicious bony lesions. Visualized cervical spine appears normally aligned. Degenerative changes are seen, with moderate disc space narrowing at C5-C6. IMPRESSION: Normal study, with a normal right common carotid artery. Incidental note is made of: Focal C5-C6 degenerative change. Direct origin of the left vertebral artery from the aortic arch Any quantitative stenosis measurements were performed using the NASCET criteria. Dictated by: Cornelio Tate M.D. on 04/03/2022 at 10:40 Approved by: Cornelio Tate M.D. on 04/03/2022 at 10:44
== END ==
PROVIDERS: PCP Nurse Practitioner; Referring Provider Internal Medicine Cardiovascular Disease; Visit Provider Internal Medicine Cardiovascular Disease
DX: I77.71 Dissection of carotid artery (principal)
CPT/HCPCS: 70498; Q9967

== ENCOUNTER → 2022-09-12 15:17 | Outpatient (CLI) | payer BC, OTHER, SELFPAY ==
[2021-07-11 09:12] VITALS: BMI 29.7
--- NOTE | 2022-09-12 15:19 | DI.MG.S_ITS ---
BILATERAL DIGITAL SCREENING MAMMOGRAM 3D/2D WITH CAD: 09/12/2022 CLINICAL: Routine screening. Family history of breast cancer. Comparison is made to exams dated: 09/13/2021 mammogram, 01/30/2021 mammogram, 07/06/2020 ultrasound, and 07/06/2020 mammogram - [facility]. There are scattered areas of fibroglandular density in both breasts (category b / 25%-50% glandular tissue). Current study was also evaluated with a Computer Aided Detection (CAD) system. There are biopsy clips in the left breast. No significant masses, calcifications, or other findings are seen in either breast. There has been no significant interval change. IMPRESSION: NEGATIVE There is no mammographic evidence of malignancy. A 1 year screening mammogram is recommended. Based on the Tyrer Cuzick model (a risk assessment model) the patient's lifetime risk is 9.2% and her 10 year risk is 2.0%. According to the ACR, ACS, and NCCN guidelines, an annual breast MRI exam along with mammogram is recommended if the patient's lifetime risk is 20% or greater. This exam was interpreted at Station ID: [id number]. NOTE: For mammograms, a report in lay terms will be sent to the patient. Approximately 15% of breast malignancies will not be visualized mammographically. In the management of a palpable breast mass, a negative mammogram must not discourage biopsy of a clinically suspicious lesion. Electronically Signed By: Randolph Lee M.D., jr/elmer:09/13/2022 13:56:08 letter sent: Normal Exam ACR BI-RADS Category 1: Negative 3341F
--- NOTE | 2022-09-12 15:20 | DI.US.S_ITS ---
PROCEDURE: US PELVIC COMPLETE INDICATIONS: PELVIC AND PERINEAL PAIN TECHNIQUE: Real-time scanning was performed of the pelvic organs, with image documentation. Additional endovaginal scanning was necessary due to incomplete visualization of the adnexal and endometrial structures by transabdominal scanning. COMPARISON: [facility], , PELVIC COMPLETE, 03/17/2009, 14:48. [facility], US, US PELVIC COMPLETE, 09/05/2021, 10:26. FINDINGS: Uterus: Uterus is retroverted and normal in size at 8.1 x 5.2 x 6.3 cm. The myometrium is homogeneous. The endometrium measures 5 mm combined thickness. Ovaries: The right ovary is not seen. The left ovary measures 2.5 x 1.4.9 cm, with a volume of 3.6 cc. Less than 12 follicles can be seen involving the left ovary. No adnexal masses are seen on either side. Other: No pathologic free abdominal or pelvic fluid. IMPRESSION: No significant pelvic ultrasound abnormality can be seen. No right ovary is identified. We strive to produce accurate, complete, and clear reports of imaging services. To assist us in improving patient care, this report was composed using standard report templates and voice recognition software. Therefore, it may contain abnormal punctuation, insertions and/or omissions. Occasional wrong-word or sound-alike substitutions may occur. Though we review the report and make efforts to correct it, we do recommend that the report be read carefully in proper context to recognize any text inaccuracies. Dictated by: Cornelio Tate M.D. on 09/12/2022 at 17:46 Approved by: Cornelio Tate M.D. on 09/12/2022 at 17:47
== END ==
PROVIDERS: PCP Nurse Practitioner; Referring Provider Obstetrics & Gynecology; Visit Provider Obstetrics & Gynecology
DX: Z12.31 Encounter for screening mammogram for malignant neoplasm of breast (principal); R10.2 Pelvic and perineal pain; Z80.3 Family history of malignant neoplasm of breast
CPT/HCPCS: 76856; 77063; 77067

== ENCOUNTER 2023-02-14 08:10 | Day surgery (SDC) | payer BC, OTHER, SELFPAY ==
[2021-07-11 09:12] VITALS: BMI 29.7
[2023-02-14] MEDS: LACTATED RINGERS 1,000 ML 100 ML IV (08:45)
[2023-02-14 08:46] VITALS: BP 125/83; PULSE 99; RESP 16; TEMP 36.3; O2SAT 95; BMI 25.0
--- NOTE | 2023-02-14 09:54 | P.HP_ITS ---
History of Present Illness History of Present Illness Chief complaint: Colonoscopy Narrative: Mrs. Jean is a 47-year-old female presents today for a screening colonoscopy. She has never had a colonoscopy before has no family history of colon cancer has had blood in her stool 1 time but thought that is related to an obstetric injury that she has had and really has not had any other episode of bleeding. She does take papaya enzyme and feels that though she is been constipated in the past this treatment helps. She does endorse some abdominal pain that has been going off and on for the last 6 months in the right upper quadrant. She is spoken to her regular doctor about that and it is not terribly concerning to her but gallbladder had been mentioned overall she is not really sure what that could be. She is no other questions or concerns about colonoscopy and would like to proceed [facility] Medical History Blurry vision Cardiomyopathy Chicken pox (1979) Essential hypertension Hayfever Hearing loss Left bundle branch block (LBBB) Ovarian cyst Premature heartbeats (2001) Varicose veins of both lower extremities Surgical History Anesthesia History of right salpingo-oophorectomy (05/02/09) Status post tonsillectomy and adenoidectomy (1979) Status post tubal ligation (05/02/09) Family History Father Age: 71 Hypertension Obesity Cardiomegaly Chronic obstructive pulmonary disease, unspecified COPD type Grandfather Heart disease Hypertension Stroke Heart attack Grandmother Diabetes mellitus Hypertension High cholesterol Cirrhosis, nonalcoholic Mother Age: 67 Hypertension Grandfather Heart disease Hypertension Stroke Grandmother Diabetes mellitus Mental health problem Kidney failure Dementia Sister Age: 43 Obesity Type 2 diabetes mellitus Family/Other No problems noted. Family/Other No problems noted. Family/Other Breast cancer Social History household members: spouse and children Smoking Status: Never smoker alcohol intake: never Meds Home Medications and Allergies Home Medications Medication Instructions Recorded Confirmed Type amlodipine 10 mg tablet 10 mg PO DAILY 09/08/19 02/14/23 History metoprolol succinate 50 mg capsule 50 mg PO DAILY 09/08/19 02/14/23 History sprinkle, ext. release 24 hr montelukast 10 mg tablet 10 mg PO DAILY 05/23/20 02/14/23 History (Singulair) losartan 50 mg tablet 50 mg PO DAILY 07/10/21 02/14/23 History rosuvastatin 5 mg tablet 5 mg PO BEDTIME 07/10/21 02/14/23 History psyllium husk (with sugar) 3.4 1 tbsp PO BID #822 grams 02/14/23 Rx gram/7 gram oral powder (Fiber (psyllium husk-sugar)) Allergies Allergy/AdvReac Type Severity Reaction Status Date / Time ampicillin [AMPICILLIN] Allergy Unknown Verified 11/12/22 15:41 Penicillins [PENICILLINS] Allergy Unknown A CHILD Verified 11/12/22 15:41 Exam Vital Signs (past 8 hours): - 02/14/23 08:46 Temperature 97.3 F L Pulse Rate 99 H Respiratory Rate 16 Blood Pressure 125/83 Pulse Oximetry 95 Oxygen Delivery Method Room Air Oxygen Delivery Method Room Air Const General: cooperative, healthy appearing and comfortable Nutritional Appearance: average body habitus and well nourished Orientation: alert, awake and oriented x3 HENMT Head: normal to inspection Mouth: oral mucosae normal Eyes General: appearance normal, both eyes and all related structures Resp Effort & Inspection: normal respiratory effort and able to speak in complete sentences GI Palpation: soft and No tender Skin General: no rashes or lesions noted Assessment & Plan Assessment and plan (1) Screening for colon cancer: Status: Acute Assessment & Plan narrative: Presents today for screening colonoscopy I discussed the risks benefits and alternatives including but not limited to perforation of the colon and an incomplete exam she fully understands these risks and would like to proceed.
[2023-02-14 10:23] VITALS: BP 90/44; PULSE 71; RESP 14; TEMP 36.2; O2SAT 97
[2023-02-14 10:28] VITALS: BP 99/58; PULSE 71; RESP 16; O2SAT 96
--- NOTE | 2023-02-14 10:31 | SUR.PHASEI ---
Received to PACU after MAC. Report received from JOEL Tracey and Dr Wallace.
[2023-02-14 10:33] VITALS: BP 96/58; PULSE 67; RESP 20; O2SAT 97
[2023-02-14 10:38] VITALS: BP 101/62; PULSE 79; RESP 16; TEMP 36.8; O2SAT 98
[2023-02-14 10:55] VITALS: BP 125/83; PULSE 99; RESP 16; TEMP 36.8; O2SAT 98
--- NOTE | 2023-02-14 17:10 | P.OP.COLON_ITS ---
Operative Date/Time/Diagnoses Date of procedure: 02/14/23 Pre-op diagnosis: Screening colonoscopy no family history Post-op diagnosis: same Procedure & Clinicians Study performed: Colonoscopy Same procedure as scheduled: Yes Surgeon: Bhavana Miles Procedure Notes Procedure in detail: Patient was taken to the endoscopy suite and placed in a left lateral decubitus position. A time-out was performed. With the help of anesthesiologist conscious sedation was induced and monitored throughout the case. A digital r ectal exam was performed and there were no masses or strictures. The colonoscope was introduced into the anal canal and advanced through to the cecum. A photograph of the appendiceal orifice was obtained. The bowel prep was good Ellsworth bowel prep score of 2. The scope was then withdrawn for a total of 11 minutes and no polyps were seen. A large number of diverticula were seen throughout the sigmoid colon. Findings: divertiulosis Specimen(s): none sent Complications: none Post-procedure Recommendations: Colonoscopy in 10 years Plan for aftercare: Fiber supplementation
== END 2023-02-14 11:01 | disposition home or self-care (01) ==
PROVIDERS: PCP Nurse Practitioner; Referring Provider Surgery; Visit Provider Surgery
PROC: 0DJD8ZZ Inspection of Lower Intestinal Tract, Via Natural or Artificial Opening Endoscopic (ICD-10-PCS; CPT 45378; principal; 2023-02-14 09:15)
DX: Z12.11 Encounter for screening for malignant neoplasm of colon (principal); K57.90 Diverticulosis of intestine, part unspecified, without perforation or abscess without bleeding
CPT/HCPCS: 45378; J2250; J2704; J3010

== ENCOUNTER → 2023-04-30 15:30 | Outpatient (CLI) | payer BC, OTHER, SELFPAY ==
[2021-07-11 09:12] VITALS: BMI 29.7
[2023-04-30 16:54] LABS: Add Manual Diff / Slide Review NO; Basophils Absolute Auto 100 /uL (0-100); Basophils Percent Auto 1.3 % (0-2); Eosinophils Absolute Auto 200 /uL (0-450); Eosinophils Percent Auto 2.6 % (2-4); Hemoglobin 12.8 g/dL (12.0-16.0); Lymphocytes Absolute Auto 2200 /uL (1100-4500); Lymphocytes Percent Auto 25.8 % (25-40); Mean Corpuscular HGB Conc 35.7 % (30-36); Mean Corpuscular Hemoglobin 33.2 PG (26-34); Monocytes Absolute Auto 600 /uL (0-900); Neutrophils Absolute Auto 5300 /uL (1500-7000); Neutrophils Percent Auto 63.3 % (50-75); Platelet Count 271 X10^3/uL (150-400); Red Blood Cell Count 3.87 X10^6/uL (4.0-5.2); Red Cell Distribution Width 12.8 % (11.6-14.8); White Blood Cell Count 8.3 X10^3/uL (4.5-11.0)
[2023-04-30 17:26] LABS: BUN Creatinine Ratio 24.7 (6-22); Blood Urea Nitrogen 20 mg/dL (7-17); Calcium 9.3 mg/dL (8.4-10.2); Carbon Dioxide 24 mmol/L (22-32); Chloride 104 mmol/L (98-107); Cholesterol 200 mg/dL (140-199); Estimated Glomerular Filt Rate > 60 mL/min (>60); Glucose 97 mg/dL (70-100); HDL Cholesterol 45 mg/dL (40-60); HEMOLYSIS 31 (0-50); LDL Cholesterol Calculated 78 mg/dL (<100); Potassium 4.1 mmol/L (3.4-5.1); Sodium 136 mmol/L (137-145); Triglycerides 384 mg/dL (35-150)
== END ==
PROVIDERS: PCP Nurse Practitioner; Referring Provider Internal Medicine Cardiovascular Disease; Visit Provider Internal Medicine Cardiovascular Disease
DX: I42.9 Cardiomyopathy, unspecified (principal); E78.5 Hyperlipidemia, unspecified
CPT/HCPCS: 36415; 80048; 80061; 85025

== ENCOUNTER → 2023-11-15 10:03 | Outpatient (CLI) | payer BC, SELFPAY ==
[2021-07-11 09:12] VITALS: BMI 29.7
--- NOTE | 2023-11-15 | DI.MG.S_ITS ---
BILATERAL DIGITAL SCREENING MAMMOGRAM 3D/2D WITH CAD: 11/15/2023 CLINICAL: Routine screening. Family history of breast cancer. Comparison is made to exams dated: 09/12/2022 mammogram, 09/13/2021 mammogram, 01/30/2021 mammogram, and 07/06/2020 mammogram - [facility]. There are scattered areas of fibroglandular density in both breasts (category b / 25%-50% glandular tissue). Current study was also evaluated with a Computer Aided Detection (CAD) system. There are biopsy clips in the left breast. No significant masses, calcifications, or other findings are seen in either breast. There has been no significant interval change. IMPRESSION: NEGATIVE There is no mammographic evidence of malignancy. A 1 year screening mammogram is recommended. Based on the Tyrer Cuzick model (a risk assessment model) the patient's lifetime risk is 9.2% and her 10 year risk is 2.1%. According to the ACR, ACS, and NCCN guidelines, an annual breast MRI exam along with mammogram is recommended if the patient's lifetime risk is 20% or greater. This exam was interpreted at Station ID: [id number]. NOTE: For mammograms, a report in lay terms will be sent to the patient. Approximately 15% of breast malignancies will not be visualized mammographically. In the management of a palpable breast mass, a negative mammogram must not discourage biopsy of a clinically suspicious lesion. Electronically Signed By: Suellen garcia/elmer:11/17/2023 15:43:59 letter sent: Normal Exam ACR BI-RADS Category 1: Negative [id number]
== END ==
PROVIDERS: PCP Nurse Practitioner; Referring Provider Obstetrics & Gynecology; Visit Provider Nurse Practitioner
DX: Z12.31 Encounter for screening mammogram for malignant neoplasm of breast (principal); Z80.3 Family history of malignant neoplasm of breast; R92.323 Mammographic fibroglandular density, bilateral breasts
CPT/HCPCS: 77063; 77067

== ENCOUNTER → 2024-04-23 09:02 | Outpatient (CLI) | payer OTHER, SELFPAY ==
[2021-07-11 09:12] VITALS: BMI 29.7
[2024-04-23 09:37] LABS: Hematocrit 35.6 % (36-46); Hemoglobin 12.3 g/dL (12.0-16.0); Mean Corpuscular HGB Conc 34.5 % (30-36); Mean Corpuscular Hemoglobin 31.9 PG (26-34); Mean Corpuscular Volume 92.4 fL (80-100); Platelet Count 429 X10^3/uL (150-400); Red Blood Cell Count 3.85 X10^6/uL (4.0-5.2); Red Cell Distribution Width 12.7 % (11.6-14.8); White Blood Cell Count 9.1 X10^3/uL (4.5-11.0)
[2024-04-23 09:56] LABS: BUN Creatinine Ratio 23.2 (6-22); Blood Urea Nitrogen 13 mg/dL (7-17); Calcium 9.7 mg/dL (8.4-10.2); Carbon Dioxide 26 mmol/L (22-32); Chloride 104 mmol/L (98-107); Cholesterol 175 mg/dL (140-199); Estimated Glomerular Filt Rate > 60 mL/min (>60); Glucose 115 mg/dL (70-100); HDL Cholesterol 43 mg/dL (40-60); HEMOLYSIS < 15 (0-50); LDL Cholesterol Calculated 87 mg/dL (<100); Potassium 4.3 mmol/L (3.4-5.1); Sodium 136 mmol/L (137-145); Triglycerides 223 mg/dL (35-150)
== END ==
PROVIDERS: PCP Nurse Practitioner; Referring Provider Internal Medicine Cardiovascular Disease; Visit Provider Internal Medicine Cardiovascular Disease
DX: I10 Essential (primary) hypertension (principal); E78.5 Hyperlipidemia, unspecified
CPT/HCPCS: 36415; 80048; 80061; 85027

== ENCOUNTER → 2024-04-28 15:59 | Outpatient (CLI) | payer OTHER, SELFPAY ==
[2021-07-11 09:12] VITALS: BMI 29.7
--- NOTE | 2024-04-28 16:00 | DI.US.S_ITS ---
PROCEDURE: US PELVIC COMPLETE INDICATIONS: Menorrhagia TECHNIQUE: Real-time scanning was performed of the pelvic organs, with image documentation. Additional endovaginal scanning was necessary due to incomplete visualization of the adnexal and endometrial structures by transabdominal scanning. COMPARISON: [facility], US, US PELVIC COMPLETE, 09/12/2022, 16:12. FINDINGS: Uterus: Uterus is anteverted and normal in size at 9.6 x 6.3 x 7.0 cm. The myometrium is heterogeneous. The endometrium measures 9.3 mm combined thickness. Ovaries: The right ovary is not seen. The left ovary measures 4.9 x 2.1 x 2.0 cm, with a calculated ovarian volume of 10.9 cc. Complex left ovarian cyst measuring 3.1 x 2.1 x 2.7 centimeters. Other: No pathologic free abdominal or pelvic fluid. IMPRESSION: Endometrium measures 9.3 millimeters in thickness. If patient is postmenopausal, this is considered thickened and further evaluation with endometrial sampling or short-term follow-up ultrasound is recommended. If patient is premenopausal, this consider within normal limits. Complex left ovarian cyst measuring 3.1 centimeters, possibly a hemorrhagic cyst. Recommend follow-up ultrasound in 6-12 weeks to assess for resolution. The right ovary is not seen. We strive to produce accurate, complete, and clear reports of imaging services. To assist us in improving patient care, this report was composed using standard report templates and voice recognition software. Therefore, it may contain abnormal punctuation, insertions and/or omissions. Occasional wrong-word or sound-alike substitutions may occur. Though we review the report and make efforts to correct it, we do recommend that the report be read carefully in proper context to recognize any text inaccuracies. Dictated by: Scotty Burns M.D. on 04/29/2024 at 12:00 Approved by: Scotty Burns M.D. on 04/29/2024 at 12:20
== END ==
PROVIDERS: PCP Nurse Practitioner; Referring Provider Obstetrics & Gynecology; Visit Provider Obstetrics & Gynecology
DX: N92.0 Excessive and frequent menstruation with regular cycle (principal); N83.292 Other ovarian cyst, left side
CPT/HCPCS: 76856

== ENCOUNTER → 2024-04-29 16:27 | Outpatient (CLI) | payer OTHER, SELFPAY ==
[2021-07-11 09:12] VITALS: BMI 29.7
[2024-04-29 18:18] LABS: Cancer Antigen 125 60.7 U/mL (0-35)
== END ==
PROVIDERS: PCP Nurse Practitioner; Referring Provider Obstetrics & Gynecology; Visit Provider Obstetrics & Gynecology
DX: N83.209 Unspecified ovarian cyst, unspecified side (principal)
CPT/HCPCS: 86304

== ENCOUNTER → 2024-05-07 13:31 | Outpatient (CLI) | payer OTHER, SELFPAY ==
[2021-07-11 09:12] VITALS: BMI 29.7
[2024-05-10 09:36] LABS: Human Epididymis Prot 4 42.6 pmol/L (0.0-105.2)
== END ==
PROVIDERS: PCP Nurse Practitioner; Referring Provider Obstetrics & Gynecology; Visit Provider Obstetrics & Gynecology
DX: N87.0 Mild cervical dysplasia (principal)
CPT/HCPCS: 36415; 86305

== ENCOUNTER 2024-07-12 08:28 | Day surgery (SDC) | payer BC, SELFPAY ==
[2021-07-11 09:12] VITALS: BMI 29.7
[2024-07-09 12:37] VITALS: BMI 28.0
[2024-07-12] VITALS (7 sets, daily range): BP systolic 106–139; BP diastolic 60–85; PULSE 62–70; RESP 9–23; TEMP 36.2–36.6; O2SAT 65–100; BMI 28.1
--- NOTE | 2024-07-12 | PATH_ITS ---
[facility] Accession Number: [id number] No. of containers..01 Tissue . 01 Material submitted: . uterus - UTERUS LEFT TUBE AND OVARY, PARTIAL FALLOPIAN TUBE . 01 Diagnosis: UTERUS, LEFT TUBE AND OVARY, PARTIAL FALLOPIAN TUBE, LAPAROSCOPIC SUPRACERVICAL HYSTERECTOMY, LEFT SALPINGO-OOPHORECTOMY AND RIGHT PARTIAL SALPINGECTOMY (WEIGHT 110 GRAMS): Proliferative endometrium; negative for endometrioid intraepithelial neoplasia or malignancy. Myometrium with a benign leiomyoma (7 mm in greatest dimension). Uterine serosa with no significant abnormality at gross examination. First-described (nonfimbriated) fallopian tube: muscular wall with ciliated epithelium, consistent with fallopian tube; negative for significant atypia. Second-described (possibly fimbriated) fallopian tube: muscular wall with ciliated epithelium, consistent with fallopian tube; negative for significant atypia. Ovary with a hemorrhagic corpus luteum cyst (approximately 14 mm in greatest dimention). [facility] 07/20/2024 1608 Local . 01 Comment: Parts of this case were also reviewed by Dr. Ania Wills, who agrees with the interpretation. . 01 Electronically signed: . Angie Colunga MD, Pathologist NPI- [id number] . 01 Gross description: . Received in formalin with two patient identifiers and uterus, left tube, ovary, partial right tube, is a fragmented uterus (110 grams, 10.6 x 10.5 x 4.4 cm in aggregate), and attached partial nonfimbriated fallopian tube (2.3 cm in length by 0.8 cm in diameter), a possibly fimbriated attached second tube (1.7 cm in length by 0.6 cm in diameter), a detached ovary (4 grams, 3.4 x 1.7 x 1.5 cm), with no cervix or additional adnexa. . The serosa is haynes and wrinkled with no hemorrhage or adhesion identified. The endometrium is haynes to brown and velvety, and averages less than 0.1 cm thick. The myometrium is haynes and moderately trabecular with a well-circumscribed white whorled nodule, 0.7 cm in greatest dimension. . Both presumed tubes have haynes smooth serosa with no cysts identified, and sectioning reveals patent lumen averaging 0.2 cm in diameter with no definitive fimbriae identified. . The ovary has a haynes cerebriform external surface with two violaceous cystic structures (0.9 x 0.8 x 0.6 cm and 0.7 x 0.6 x 0.5 cm). Sectioning reveals unremarkable physiologic cut surface, and the violaceous cystic structures to be filled with coagulated hemorrhagic material. No additional lesions are identified. . Boat Captain sections are submitted as follows: A1: Endometrium. A2: Nodule. A3: Nonfimbriated fallopian tube. A4: Possible fimbria and fallopian tube. A5: Ovary with hemorrhagic cysts. . Note: No large cyst or definitive cyst wall fragments are identified. ([id number]) /MRV 07/20/2024 1413 Local . 01 Pathologist provided ICD-10: N92.0, N83.299 . 01 CPT . 798438 Specimen Comment: A courtesy copy of this report has been sent to [phone] Performed at: [address] [address], [place], [place] [id number] MD Fuad Melendez MD Phone: [phone]
[2024-07-12] MEDS: LACTATED RINGERS 1,000 ML 42 ML IV (09:11)
[2024-07-12] MEDS: SCOPOLAMINE 1 PATCH TOP (09:54)
[2024-07-12] MEDS: ACETAMINOPHEN 325 MG TABLET 975 MG PO (09:54)
--- NOTE | 2024-07-12 10:37 | PM.PREOP ---
Pre-operative Note Interval Note History & Physical reviewed/Exam performed by Physician: Yes Changes to H&P: No H&P completed within 30 days and has changed as indicated here:: 06/30/24
[2024-07-12] MEDS: CEFAZOLIN 2 GM/100 ML PREMIX 100 ML IV (11:10)
--- NOTE | 2024-07-12 11:29 | SUR.OPER ---
Lithotomy on padded OR bed. [place] Pad Positioner under torso. Head on pillow, arms padded and tucked at sides. Legs secured in padded yellow fins stirrups.
[2024-07-12] MEDS: BUPIVACAINE 0.5% W/ EPI (PF) 30 ML VIAL INJ (11:37)
[2024-07-12] MEDS: ROPIVACAINE 0.2% PF 2 MG/ML 10ML AMP 20 ML INJ (11:56)
--- NOTE | 2024-07-12 12:49 | P.OP_ITS ---
Operative Date/Time/Diagnoses Date of procedure: 07/12/24 Time of procedure: 12:50 Pre-op diagnosis: Menorrhagia Left ovarian cyst Post-op diagnosis: same Procedure & Clinicians Procedure: Procedures Operation Date: 07/12/24 10:15 Actual Procedure Side Surgeon p Laparoscopic Supracervical Hysterectomy with left salpingo-oophorectomy, partial right fallopian tube. Bilateral Rebekah Millan MD Indications: 49-year-old 3 para 2 with a left ovarian cyst and menorrhagia. Surgeon: Rebekah Millan Freight Dispatcher: Bella Puentes Anesthesia Type: General and Local Operative Notes Findings: 10 wk size anteverted uterus Normal liver and gallbladder 2cm cyst on left ovary Normal left tube Normal partial right tube Specimen(s): left tube & ovary, right tube & ovary and uterus Applied: catheter (Removed at the end of the case) Estimated blood loss (mL): 25 Blood products transfused: none Procedure in detail: The patient was taken to the operating room where she was placed in the dorsal supine position. After adequate general endotracheal anesthesia was achieved, she was placed in the dorsal lithotomy position, and prepped and draped in the usual sterile fashion. A timeout was performed. A bivalve speculum was placed into the vagina and the anterior lip of the cervix grasped with a single-tooth tenaculum. The cervical os was sequentially dilated until the ZUMI uterine manipulator could pass easily into the endometrial cavity. The single-tooth tenaculum was removed from the anterior lip of the cervix, and the bivalve speculum was removed from the vagina. Attention was then turned to the abdomen where 6 mL of half percent Marcaine with epinephrine were injected in the umbilical fold. A 5 mm incision was made. The veress needle was placed into the peritoneal cavity, and its placement confirmed by aspiration and drop test. The veress needle was removed. A 5 mm trocar was placed without difficulty. 2 other incisions were made 4 cm lateral to the umbilicus after 5 mL of half percent Marcaine with epinephrine were injected. These were 5 mm incisions. Two, 5 mm trocars were placed under direct visualization. The right partial tube was grasped with an atraumatic grasper. Using the Powerseal, the mesosalpinx was cauterized and cut all the way down to the cornua of the uterus. The cornua of the uterus was then grasped with an atraumatic grasper. The round ligament and broad ligament were cauterized and cut with Powerseal. Hemostasis was achieved. The bladder flap was created using the Powerseal with cautery and cut correction across. The uterine arteries on the right side were extensively cauterized with the Powerseal. The left tube and ovary were grasped with an atraumatic grasper. Using the power seal, the infundibulopelvic ligament on the left side was cauterized and cut. The round ligament was cauterized and cut. The broad ligament was cauterized and cut. The remainder of the bladder flap was created using the power seal. The bladder was taken down from the lower uterine segment and cervix. Using the L[place]oop, the cervix was amputated from the uterus 2 cm above the uterosacral ligaments, after the ZUMI uterine manipulator was removed from the uterus and a moistened sponge stick was placed in the vagina. There was a small amount of bleeding noted from the posterior edge of the cervix, and this was cauterized for hemostasis. 6 mL of half percent Marcaine with epinephrine were injected 2 cm above the pubic symphysis. A 12mm incision was made. A 12 mm trocar was placed under direct visualization. The trocar was removed. A large Endobag was placed through the suprapubic incision and the uterus, left tube and ovary, and partial right tube were placed into the Endobag. The trocar was removed. The edges of the endobag were brought up through the incision. The uterus was grasped with a Favian. An Jose was placed into the endobag. The uterus was hands morcellated in approximately [4] pieces. The tubes and left ovary were also removed from the Endobag. The Endobag was removed from the peritoneal cavity. The pelvis was copiously irrigated with warm normal saline. No bleeding was noted. 20 mL of 0.2% ropivacaine were placed over the pelvic pedicles. The instruments were removed from the abdomen. The CO2 was allowed to escape. The suprapubic incision was closed on the fascia with 0 Vicryl. Two simple interrupted sutures with 3-0 Vicryl were placed in the suprapubic incision to reapproximate the subcutaneous layer. All of the incisions were closed with 4-0 Monocryl in a subcuticular fashion. Steri strips and Allevyn dressings were placed over the incisions. The moistened sponge stick was removed from the vagina. Sponge, lap, and instrument counts were correct x 2. The patient tolerated the procedure we ll, was taken to PACU in stable condition. Complications: none Post-operative Condition: stable Disposition: PACU Plan for aftercare: Home after recovery
== END 2024-07-12 14:10 | disposition home or self-care (01) ==
LOC: OR 08:29 → AC 08:29
PROVIDERS: PCP Nurse Practitioner; Referring Provider Obstetrics & Gynecology; Visit Provider Obstetrics & Gynecology
PROC: 0UT94ZL Resection of Uterus, Supracervical, Percutaneous Endoscopic Approach (ICD-10-PCS; CPT 58542; principal; 2024-07-12 10:15)
DX: N92.0 Excessive and frequent menstruation with regular cycle (principal); N83.292 Other ovarian cyst, left side; D25.9 Leiomyoma of uterus, unspecified
CPT/HCPCS: 58542; J0330; J0690; J1100; J1171; J1885; J2250; J2405; J2704; J2795; J3010; J3490